=== PATIENT | male | born 1940 | race Caucasian/White ===

== ENCOUNTER 2017-07-06 15:05 | Inpatient (IN) | payer OTHER, MEDICARE ==
[~2017-07-06] VITALS: Ht 162.6 cm; Wt 72.1 kg
[2017-07-14] MEDS ORDERED: HYOS0.128 PO (09:54)
[2017-07-14] MEDS ORDERED: ASPI-110 PO (09:54)
[2017-07-14] MEDS ORDERED: MULT-65 PO (09:54)
[2017-07-14] MEDS ORDERED: METF1000 PO (09:54)
[2017-07-14] MEDS ORDERED: TRAM50TA PO (09:54)
[2017-07-14] MEDS ORDERED: LEVO50TA4 PO (09:54)
[2017-07-14] MEDS ORDERED: CHOL5000 PO (09:54)
[2017-07-16] VITALS (7 sets, daily range): BP systolic 141–153; BP diastolic 71–79; PULSE 86–107; RESP 16; TEMP 98–98.2; O2SAT 98
[2017-07-16] MEDS ORDERED: PROPOFOL 200 MG/20 ML AMP IV ONE (12:00)
[2017-07-16] MEDS ORDERED: ePHEDrine/NS 25 MG/5 ML SYR IV ONE (12:00)
[2017-07-16] MEDS ORDERED: NEOSTIGMINE 3 MG/3 ML SYR IV ONE (12:00)
[2017-07-16] MEDS ORDERED: LACTATED RINGER'S 1000 ML INJ 1,000 ML IV ONE (12:00)
[2017-07-16] MEDS ORDERED: PHENYLEPH/NS 1000 MCG/10 ML SYR IV ONE (12:00)
[2017-07-16] MEDS ORDERED: ONDANSETRON HCL 4 MG/2 ML VIAL IV PUSH ONE (12:00)
--- NOTE | 2017-07-16 13:24 | PD.HP.UP ---
H&P Update Note The Pre-Admit History and Physical Examination regarding the above named patient was reviewed (including, but not limited to, vital signs, heart, lungs, co-morbid conditions), and upon re-examination it is noted that: the patient's condition has not significantly changed since the last examination. Carlos Hess MD Jul 16, 2017 13:24
[2017-07-16] MEDS ORDERED: metroNIDAZOLE 500 MG INJ 100 ML IV ONE (13:45)
[2017-07-16] MEDS ORDERED: ALVIMOPAN 12 MG CAPSULE ONE (13:45)
[2017-07-16] MEDS ORDERED: ceFAZolin INJ 1,000 MG VIAL ONE (13:45)
[2017-07-16] MEDS ORDERED: SODIUM CHLORIDE 0.9% INJ 100 ML ONE (13:46)
[2017-07-16] MEDS ORDERED: MIDAZOLAM HCL 2 MG/2 ML VIAL ONE (14:04)
[2017-07-16] MEDS ORDERED: POTASSIUM CHLOR 20 MEQ PREMIX 100 ML IV PRN (15:30)
[2017-07-16] MEDS ORDERED: ZOLPIDEM TARTRATE 5 MG TAB PO PRN (15:30)
[2017-07-16] MEDS ORDERED: NALOXONE HCL 0.4 MG/ML AMP IV PRN (15:30)
[2017-07-16] MEDS ORDERED: BENZOCAINE 6 MG/MENTHOL 10 MG LOZENGE BUCCAL PRN (15:30)
[2017-07-16] MEDS ORDERED: ONDANSETRON HCL 4 MG/2 ML VIAL IV PRN (15:30)
[2017-07-16] MEDS ORDERED: ENALAPRILAT 1.25 MG/ML VIAL IV PRN (15:30)
[2017-07-16] MEDS ORDERED: Post-op Orders (for Pharmacy) MISC XX ONE (15:30)
[2017-07-16] MEDS ORDERED: GLUCAGON 1 MG/ML VIAL OTHER PRN (15:30)
[2017-07-16] MEDS ORDERED: SODIUM CHLORIDE 0.9% FLUSH 10 ML FLUSH IV FLUSH PRN (15:30)
[2017-07-16] MEDS: PCA - TOTAL MG MORPHINE DELIVERED PER SHIFT SCH ×2 (15:30→22:00)
[2017-07-16] MEDS ORDERED: POTASSIUM CHLOR 40 MEQ PREMIX 100 ML IV PRN (15:30)
[2017-07-16] MEDS ORDERED: DEXTROSE 50% IN WATER 50 ML VIAL(D50) IV PUSH PRN (15:30)
[2017-07-16] MEDS: INSULIN NovoLIN REGULAR SUPPLEMENTAL SCALE SQ SCH ×2 (15:50→20:55)
[2017-07-16] MEDS: D5-LR + KCL 20 MEQ INJ 1,000 ML IV SCH ×3 (16:00→22:06)
[2017-07-16 16:01] LABS: AUTOMATED NEUTROPHIL # 12.7 TH/MM3 (1.8-7.7); BASOPHIL # 0.1 TH/MM3 (0-0.2); BASOPHIL % 0.4 % (0.0-2.0); EOSINOPHIL # 0.1 TH/MM3 (0-0.4); EOSINOPHIL % 0.6 % (0.0-4.0); HEMATOCRIT 39.5 % (39.0-51.0); HEMO FLAGS DIFF FINAL; LYMPH % 21.6 % (9.0-44.0); LYMPHOCYTE # 3.7 TH/MM3 (1.0-4.8); MEAN CELL VOLUME 83.1 FL (80.0-100.0); MEAN CORPUSCULAR HEMOGLOBIN 26.1 PG (27.0-34.0); MEAN CORPUSCULAR HGB CONC 31.4 % (32.0-36.0); MONO % 3.8 % (0.0-8.0); NEUT % 73.6 % (16.0-70.0); PLATELET COUNT 245 TH/MM3 (150-450); RED BLOOD COUNT 4.75 MIL/MM3 (4.50-5.90); RED CELL DISTRIBUTION WIDTH 15.1 % (11.6-17.2); WHITE BLOOD COUNT 17.3 TH/MM3 (4.0-11.0)
[2017-07-16] MEDS ORDERED: *morphine SULFATE 8 MG/ML PERIprocedure ONLY ONE ×3 (16:02→16:27)
[2017-07-16 16:10] LABS: BICARBONATE 20.3 MEQ/L (21.0-32.0); POTASSIUM 4.2 MEQ/L (3.5-5.1)
[2017-07-16] MEDS ORDERED: DO NOT ADM ANY ANTICOAGULANT DRUGS PRN (16:15)
[2017-07-16] MEDS ORDERED: *HYDROmorphone PF 1 MG VIAL PERIprocedural Use ONLY ONE (16:40)
[2017-07-16] MEDS: MORPHINE SULFATE 30 MG/30 ML PCA IV SCH (17:58)
[2017-07-16] MEDS: METOCLOPRAMIDE HCL 10 MG/2 ML VIAL IVS SCH ×2 (18:00→23:01)
[2017-07-16] MEDS: ceFAZolin 2 GM PREMIX 50 ML IV SCH (20:20)
[2017-07-16] MEDS: FUROSEMIDE 20 MG/2 ML VIAL IV SCH (20:20)
[2017-07-16] MEDS: SODIUM CHLORIDE 0.9% FLUSH 10 ML FLUSH IV FLUSH SCH (20:21)
[2017-07-16] MEDS: KETOROLAC TROMETHAMINE 30 MG/ML (IVP) VIAL IVP PRN (20:48)
[2017-07-16] MEDS: metroNIDAZOLE 500 MG INJ 100 ML IV SCH (22:56)
[2017-07-17] VITALS (21 sets, daily range): BP systolic 130–166; BP diastolic 69–75; PULSE 73–96; RESP 16–20; TEMP 97.8–99.2; O2SAT 93–99
[2017-07-17] MEDS: D5-LR + KCL 20 MEQ INJ 1,000 ML IV SCH ×4 (03:10→19:03)
[2017-07-17] MEDS: ceFAZolin 2 GM PREMIX 50 ML IV SCH ×2 (04:12→12:08)
[2017-07-17] MEDS: KETOROLAC TROMETHAMINE 30 MG/ML (IVP) VIAL IVP PRN ×2 (05:45→13:13)
[2017-07-17] MEDS: METOCLOPRAMIDE HCL 10 MG/2 ML VIAL IVS SCH ×3 (05:45→17:25)
[2017-07-17] MEDS: PCA - TOTAL MG MORPHINE DELIVERED PER SHIFT SCH ×3 (05:45→21:24)
[2017-07-17] MEDS: metroNIDAZOLE 500 MG INJ 100 ML IV SCH ×2 (05:45→13:13)
[2017-07-17] MEDS: LEVOTHYROXINE SODIUM 50 MCG TAB PO SCH (05:45)
[2017-07-17] MEDS: INSULIN NovoLIN REGULAR SUPPLEMENTAL SCALE SQ SCH ×4 (05:59→20:26)
[2017-07-17 06:50] LABS: AUTOMATED NEUTROPHIL # 10.1 TH/MM3 (1.8-7.7); BASOPHIL % 0.2 % (0.0-2.0); HEMO FLAGS DIFF FINAL; LYMPH % 6.9 % (9.0-44.0); LYMPHOCYTE # 0.8 TH/MM3 (1.0-4.8); MEAN CELL VOLUME 82.5 FL (80.0-100.0); MEAN CORPUSCULAR HEMOGLOBIN 26.5 PG (27.0-34.0); MEAN CORPUSCULAR HGB CONC 32.1 % (32.0-36.0); MONO % 6.5 % (0.0-8.0); NEUT % 86.4 % (16.0-70.0); PLATELET COUNT 234 TH/MM3 (150-450); RED BLOOD COUNT 4.12 MIL/MM3 (4.50-5.90); RED CELL DISTRIBUTION WIDTH 15.4 % (11.6-17.2); WHITE BLOOD COUNT 11.7 TH/MM3 (4.0-11.0)
[2017-07-17 07:18] LABS: BICARBONATE 21.5 MEQ/L (21.0-32.0); POTASSIUM 4.5 MEQ/L (3.5-5.1)
[2017-07-17] MEDS: ALVIMOPAN 12 MG CAPSULE PO SCH ×2 (08:11→20:23)
[2017-07-17] MEDS: FUROSEMIDE 20 MG/2 ML VIAL IV SCH ×2 (08:11→20:26)
[2017-07-17] MEDS: PANTOPRAZOLE SODIUM 40 MG VIAL IVP SCH (08:12)
[2017-07-17] MEDS: SODIUM CHLORIDE 0.9% FLUSH 10 ML FLUSH IV FLUSH SCH ×2 (08:13→20:23)
--- NOTE | 2017-07-17 16:17 | HHI.PR ---
Subjective Remarks Sitting in chair. No N or V. No BMs Objective Vital Signs Date Time Temp Pulse Resp B/P (MAP) Pulse Ox O2 Delivery O2 Flow Rate FiO2 07/17/17 16:00 Room Air 07/17/17 16:00 97.9 75 16 132/69 (90) 98 07/17/17 16:00 73 07/17/17 13:44 16 07/17/17 13:13 20 07/17/17 12:00 Room Air 07/17/17 12:00 75 07/17/17 12:00 98.9 79 16 130/71 (90) 98 07/17/17 11:00 80 07/17/17 10:00 86 07/17/17 09:00 78 07/17/17 08:00 73 07/17/17 08:00 Room Air 07/17/17 08:00 99.2 92 16 138/70 (92) 99 07/17/17 07:00 78 07/17/17 06:00 79 07/17/17 06:00 16 07/17/17 05:45 16 07/17/17 05:00 83 07/17/17 04:00 87 07/17/17 03:00 98.3 96 16 142/71 (94) 98 07/17/17 03:00 85 07/17/17 03:00 98 Nasal Cannula 2.00 07/17/17 02:00 87 07/17/17 01:00 83 07/17/17 00:00 88 07/16/17 23:00 98.2 107 16 141/71 (94) 98 07/16/17 23:00 106 07/16/17 23:00 98 Nasal Cannula 2.00 07/16/17 22:00 16 07/16/17 22:00 16 07/16/17 22:00 90 07/16/17 21:20 98 Nasal Cannula 2.00 07/16/17 21:00 104 07/16/17 20:00 88 07/16/17 19:45 98.0 86 16 153/79 (103) 98 07/16/17 19:45 98 Nasal Cannula 2.00 07/16/17 19:00 93 07/16/17 18:00 82 12 161/72 (101) 98 Nasal Cannula 2 07/16/17 17:58 18 07/16/17 17:15 97.4 75 12 150/70 (96) 98 Nasal Cannula 2 07/16/17 17:00 69 12 156/71 (99) 98 Nasal Cannula 2 07/16/17 16:45 67 14 152/70 (97) 98 Nasal Cannula 2 07/16/17 16:30 65 20 170/81 (110) 98 Nasal Cannula 2 07/16/17 16:15 70 22 168/79 (108) 99 Nasal Cannula 3 I/O 07/16/17 07/16/17 07/16/17 07/17/17 07/17/17 07/17/17 07:00 15:00 23:00 07:00 15:00 23:00 Intake Total 1745 ml 30 ml 1200 ml Output Total 1000 ml 425 ml 1300 ml Balance -1000 ml 1320 ml -1270 ml 1200 ml Intake Oral 30 ml IV Total 245 ml 1200 ml Other 1500 ml Output Urine Total 325 ml 1300 ml Estimated Blood Loss 100 ml Other 1000 ml # Bowel Movements 0 Result Diagram: 07/17/17 0545 07/17/17 0545 Objective Remarks VS=S Abd: soft,dressing dry I&Os-OK- IV just restarted Labs-OK Assessment and Plan Assessment and Plan Stable POD#1 Transfer, Restart IVF,D/C balbuena and [employer]OLLER and dressing in AM Carlos Hess MD Jul 17, 2017 16:17
[2017-07-18] VITALS (7 sets, daily range): BP systolic 114–163; BP diastolic 55–97; PULSE 84–148; RESP 18–20; TEMP 98.5–99.1; O2SAT 90–97
[2017-07-18] MEDS: MORPHINE SULFATE 30 MG/30 ML PCA IV SCH (00:24)
[2017-07-18] MEDS: METOCLOPRAMIDE HCL 10 MG/2 ML VIAL IVS SCH ×4 (00:24→17:10)
[2017-07-18 05:26] LABS: BICARBONATE 30.7 MEQ/L (21.0-32.0); POTASSIUM 4.2 MEQ/L (3.5-5.1)
[2017-07-18] MEDS: LEVOTHYROXINE SODIUM 50 MCG TAB PO SCH (05:50)
[2017-07-18 05:57] LABS: AUTOMATED NEUTROPHIL # 8.6 TH/MM3 (1.8-7.7); BASOPHIL % 0.3 % (0.0-2.0); EOSINOPHIL # 0.1 TH/MM3 (0-0.4); EOSINOPHIL % 0.7 % (0.0-4.0); HEMATOCRIT 31.8 % (39.0-51.0); HEMO FLAGS DIFF FINAL; LYMPH % 16.8 % (9.0-44.0); LYMPHOCYTE # 1.9 TH/MM3 (1.0-4.8); MEAN CELL VOLUME 83.2 FL (80.0-100.0); MEAN CORPUSCULAR HEMOGLOBIN 27.1 PG (27.0-34.0); MEAN CORPUSCULAR HGB CONC 32.6 % (32.0-36.0); NEUT % 75.2 % (16.0-70.0); PLATELET COUNT 193 TH/MM3 (150-450); RED BLOOD COUNT 3.83 MIL/MM3 (4.50-5.90); RED CELL DISTRIBUTION WIDTH 15.2 % (11.6-17.2); WHITE BLOOD COUNT 11.5 TH/MM3 (4.0-11.0)
[2017-07-18] MEDS: PCA - TOTAL MG MORPHINE DELIVERED PER SHIFT SCH (06:00)
[2017-07-18] MEDS: INSULIN NovoLIN REGULAR SUPPLEMENTAL SCALE SQ SCH ×4 (07:00→20:33)
[2017-07-18] MEDS: ALVIMOPAN 12 MG CAPSULE PO SCH ×2 (08:40→20:29)
[2017-07-18] MEDS: FUROSEMIDE 20 MG/2 ML VIAL IV SCH ×2 (08:41→20:30)
[2017-07-18] MEDS: PANTOPRAZOLE SODIUM 40 MG VIAL IVP SCH (08:41)
[2017-07-18] MEDS: SODIUM CHLORIDE 0.9% FLUSH 10 ML FLUSH IV FLUSH SCH ×2 (08:41→20:30)
[2017-07-18] MEDS: D5-LR + KCL 20 MEQ INJ 1,000 ML IV SCH ×2 (08:42→16:19)
[2017-07-18] MEDS: ACETAMINOPHEN/HYDROcodone 325 MG/5 MG TAB PO PRN ×3 (11:37→20:29)
--- NOTE | 2017-07-18 16:19 | RADRPT ---
EXAM DATE/TIME: 07/18/2017 15:57 [facility] COMPARISON: No previous studies available for comparison. INDICATIONS : Abdominal pain and suspected ileus post colon cancer removal. MEDICAL HISTORY : Carcinoma, colon. Carcinoma, bladder. SURGICAL HISTORY : Carcinoma removal, colon. Carcinoma removal, bladder. ENCOUNTER: Initial ACUITY: 3 days PAIN SCORE: 8/10 LOCATION: Bilateral abdomen. FINDINGS: Supine and upright views of the abdomen were performed there is prominent air seen within both large and small nondilated bowel. No air-fluid levels. Findings consistent with ileus. No evidence of free air. Soft tissues are grossly unremarkable. Left basilar atelectasis versus airspace consolidation is present.. CONCLUSION: Findings suggestive of ileus. No evidence of free air. Katie Barnes MD on July 18, 2017 at 16:16 Board Certified Radiologist. This report was verified electronically.
[2017-07-18] MEDS ORDERED: METOPROLOL TARTRATE 5 MG/5 ML VIAL IV PUSH ONE ×2 (22:15→23:30)
[2017-07-18] MEDS ORDERED: METOPROLOL TARTRATE 5 MG/5 ML VIAL IV PUSH PRN ×2 (22:45→23:15)
--- NOTE | 2017-07-18 22:47 | MP ---
cc: HALI HESS,JOSE CLEMONS MD DATE OF SURGERY 07/16/2017 PREOPERATIVE DIAGNOSIS Carcinoma hepatic flexure POSTOPERATIVE DIAGNOSIS Same PROCEDURE Ascending colectomy. ANESTHESIA General endotracheal SURGEON Dr. Hess ESTIMATED BLOOD LOSS 25 mL. OPERATING TIME One hour. OPERATIVE FINDINGS This patient was found on colonoscopy to have a carcinoma of the colon around the hepatic flexure region. On exploration of the abdominal cavity, the palpation of the liver was palpably normal. The gallbladder was stuck loosely to the omentum and the hepatic flexure and this was freed. The cecum was quite high and being tethered up by the omentum and the lesion did appear just proximal to the hepatic flexure. Once the cecum and ascending colon was mobilized, however, it appeared as if this may be a distal ascending colon carcinoma. Nevertheless, there was no metastatic disease palpable anywhere in the bowel. The remainder of the colon was palpably normal as was the omentum, the small bowel and the liver as mentioned above. A full right colectomy was done with an ileotransverse colon anastomosis. OPERATIVE TECHNIQUE The patient was placed on the table in the supine position. After adequate general endotracheal anesthesia, the abdomen was prepped and draped in usual manner. A right transverse supraumbilical skin incision was made and carried down through the subcutaneous tissues and the rectus muscles and the peritoneal cavity was entered with the above-mentioned findings. The cecum and the ascending colon were mobilized along its peritoneal reflection as was the hepatic flexure. The lesser sac was entered and the transverse colon was mobilized away from the omentum. The right portion of the omentum that was near the lesion was removed en bloc with the specimen. Attention was turned to the mid portion of the transverse colon and it was cleared and then the marginal vessels were clamped, cut and ligated with 0 Vicryl ligature and the middle of the transverse colon was divided with an Ethicon CORA 55 stapling device. Next, our attention was turned to the ileocolic vessels and the terminal ileum. The terminal ileum was cleared and divided between Eli clamps. The ileocolic vessels were doubly clamped, cut and doubly ligated with 0 Vicryl ligatures at their origin and the right branch of the middle colic vessel was clamped, cut and doubly ligated with 0 Vicryl ligatures as well. The specimen was removed from the table and the anastomosis was carried out along the antimesenteric borders of the bowel using an Ethicon CORA 55 stapling device. Once the anastomosis was created, the colotomy was closed with a TX 60 blue staple height stapler and the mesentery was approximated with running 3-0 Vicryl suture in a simple running manner. The abdomen was inspected for hemostasis and hemostasis was maintained throughout with electrocautery and ligature. The abdominal cavity was irrigated thoroughly with saline solution, aspirated dry and the bowels were replaced in the abdominal cavity in an long haul truck driver manner and the omentum was placed over the bowel. The posterior rectus sheath and the linea alba was closed with a double-stranded #1 PDS in a simple running manner and then the muscle layer was irrigated thoroughly with saline solution, aspirated dry and the anterior rectus sheath and external obliques were closed with double-stranded #1 PDS as well. Subcutaneous tissue was irrigated thoroughly with saline solution, aspirated dry and the skin was closed with running 3-0 Vicryl subcuticular suture and a dressing was applied. Sponge, needle and instrument counts were reported as correct. Estimated blood loss was 25 mL. Operating time was 1 hour. The patient tolerated the procedure well and left the operating room in good condition. MD ALE Jackson/ /3:34 PM /10:33 PM
[2017-07-18 23:29] LABS: CKMB 1.4 NG/ML (0.5-3.6)
[2017-07-18] MEDS: KETOROLAC TROMETHAMINE 30 MG/ML (IVP) VIAL IVP PRN (23:35)
[2017-07-19] VITALS (26 sets, daily range): BP systolic 96–122; BP diastolic 50–89; PULSE 63–155; RESP 16–20; TEMP 97.4–98.8; O2SAT 93–98
[2017-07-19] MEDS: D5-LR + KCL 20 MEQ INJ 1,000 ML IV SCH ×3 (00:55→19:04)
[2017-07-19] MEDS: METOCLOPRAMIDE HCL 10 MG/2 ML VIAL IVS SCH ×4 (00:56→17:14)
[2017-07-19] MEDS ORDERED: DILTIAZEM HCL 25 MG/5 ML VIAL IV ONE (01:00)
[2017-07-19] MEDS: DILTIAZEM 125 MG/NS 100 ML IV PRN ×4 (01:49→18:04)
--- NOTE | 2017-07-19 02:51 | PD.CONS ---
HPI Service [facility] Hospitalists . Consult Requested By Dr. Quintana . Reason for Consult Atrial fibrillation with RVR . Primary Care Physician .Chuy Foley M.D. Diagnoses: (1) Atrial fibrillation with rapid ventricular response (2) Colon cancer History of Present Illness Mr. Robbins is a pleasant 76-year-old male with a past medical history of diabetes mellitus, hyperlipidemia, hypothyroidism, and recent diagnosis with bladder cancer and colon cancer who presented to the hospital on 07/16/2017 for elective ascending colectomy by Dr. Hess who developed atrial fibrillation with rapid ventricular response this evening and was transferred to CICU with stat consult for hospitalist care. The patient is seen in the hospital room. He reports he only pain he is currently having is related to postoperative abdominal pain. He states that the only symptom he had related to his heart rate was diaphoresis and a cold and clammy sensation. These symptoms have currently resolved with IV Cardizem. He is passing gas but has not had a bowel movement yet. He denies chest pain , shortness of breath, palpitations, dizziness, syncope, nausea or vomiting, weakness, headaches, or fevers. He does report a nonproductive cough that's been present postoperatively. He denies any prior history of atrial fibrillation. Thus far, he has not require chemotherapy or radiation treatments for bladder or colon cancer and he indicates that his colorectal surgeons feel that they got all of the cancer excised with the ascending colectomy 07/16 and he will not need any. Pathology is still pending. The patient denies history of irregular heart rhythms such as atrial fibrillation or PVCs, heart disease such as CAD or CHF, valvular heart disease, and lung disease such as emphysema or asthma. Review of Systems Except as stated in HPI: all other systems reviewed are Neg Past Family Social History Allergies: Coded Allergies: No Known Allergies (Unverified , 07/14/17) Past Medical History Diabetes mellitus, type II- patient states metformin was increased by his primary care physician about 3 months ago Hyperlipidemia Hypothyroidism AAA measuring 2-3 cm, currently under surveillance by Dr. Foley Bladder cancer status post cystoscopy with cancer excision/scraping - 4 weeks ago Colon cancer status post ascending colectomy 07/16/[address] Hess Gastroesophageal reflux disease - occasionally takes [id number] medication for Denies history of irregular heart rhythms, heart disease such as CAD or CHF, valvular heart disease, lung disease such as emphysema or asthma, hypertension, liver problems, kidney problems, DVT, PE, CVA, or seizures. . Past Surgical History Cystoscopy with bladder scraping 4 weeks ago by one of the [place] urologist though patient cannot recall his name at this time Ascending colectomy by Dr. Jimena ruiz 07/16/2017 Tonsillectomy Lasix Cataract removal Left knee arthroscopy Rectal fissure repair . Reported Medications Reported Meds & Active Scripts Active Reported Multi-Vitamin Daily (Multiple Vitamin) 1 Tab Tab 1 Tab PO DAILY Vitamin D3 (Cholecalciferol) 5,000 Unit Cap 5,000 Units PO DAILY Aspirin 81 (Aspirin) 81 Mg Tabdr 81 Mg PO DAILY Tramadol (Tramadol HCl) 50 Mg Tab 50 Mg PO Q4H PRN Hyoscyamine (Hyoscyamine Sulfate) 0.125 Mg Tab 0.125 Mg PO Q6H PRN Metformin (Metformin HCl) 1,000 Mg Tab 1,000 Mg PO DAILY With a meal Levothyroxine (Levothyroxine Sodium) 50 Mcg Tab 50 Mcg PO DAILY . Active Ordered Medications Current Medications Alvimopan (Entereg) 12 mg STK-MED ONCE .ROUTE Last administered on 07/16/17 13 :52; Start 07/16/17 at 13:45; Stop 07/16/17 at 13:46; Status DC Cefazolin Sodium (Ancef Inj) 1,000 mg STK-MED ONCE .ROUTE Last administered on 07/16/17 13:50; Start 07/16/17 at 13:45; Stop 07/16/17 at 13:46; Status DC Metronidazole 100 ml @ As Directed STK-MED ONCE IV Last administered on 14:10; Start 07/16/17 at 13:45; Stop 07/16/17 at 13:46; Status DC Sodium Chloride 100 ml @ As Directed STK-MED ONCE .ROUTE ; Start 07/16/17 at 13 :46; Stop 07/16/17 at 13:47; Status DC Midazolam HCl (Versed Inj) 2 mg STK-MED ONCE .ROUTE ; Start 07/16/17 at 14:04; Stop 07/16/17 at 14:05; Status DC Fentanyl Citrate (fentaNYL INJ) 100 mcg STK-MED ONCE .ROUTE ; Start 07/16/17 at 14:04; Stop 07/16/17 at 14:05; Status DC Fentanyl Citrate (fentaNYL INJ) 400 mcg STK-MED ONCE .ROUTE ; Start 07/16/17 at 14:04; Stop 07/16/17 at 14:05; Status DC Potassium Cl/ Dextrose/Lact Ringer's 1,000 ml @ 125 mls/hr Q8H IV Last administered on 07/19/17 00:55; Start 07/16/17 at 16:00 Sodium Chloride (NS Flush) 2 ml UNSCH PRN IV FLUSH FLUSH AFTER USING IV ACCESS ; Start 07/16/17 at 15:30 Sodium Chloride (NS Flush) 2 ml BID IV FLUSH Last administered on 07/17/17 20: 23; Start 07/16/17 at 21:00 Cefazolin Sodium/ Dextrose 50 ml @ 100 mls/hr Q8H IV Last administered on 07/17 12:08; Start 07/16/17 at 21:00; Stop 07/17/17 at 13:29; Status DC Metronidazole 100 ml @ 200 mls/hr Q8H IV Last administered on 07/17/17 13:13 ; Start 07/16/17 at 22:00; Stop 07/17/17 at 14:29; Status DC Miscellaneous Information (Post-op Orders (for Pharmacy)) STAT ONCE XX Last administered on 07/16/17 15:30; Start 07/16/17 at 15:30; Stop 07/16/17 at 17:55 ; Status DC Acetaminophen/ Hydrocodone Bitart ([place] 5-325 Mg) 1 tab Q4H PRN PO PAIN SCALE 1 TO 4; Start 07/16/17 at 15:30 Acetaminophen/ Hydrocodone Bitart ([place] 5-325 Mg) 2 tab Q4H PRN PO PAIN SCALE 5 TO 10 Last administered on 07/18/17 20:29; Start 07/16/17 at 15:30 Ketorolac Tromethamine (Toradol Inj) 15 mg Q6H PRN IVP BREAKTHROUGH PAIN Last administered on 07/18/17 23:35; Start 07/16/17 at 15:30; Stop 07/19/17 at 15:29 Alvimopan (Entereg) 12 mg BID PO Last administered on 07/18/17 20:29; Start at 09:00; Stop 07/23/17 at 21:01 Pantoprazole Sodium (Protonix Inj) 40 mg DAILY IVP Last administered on 08:41; Start 07/17/17 at 09:00 Metoclopramide HCl (Reglan Inj) 10 mg Q6HR IVS Last administered on 07/19/17 00:56; Start 07/16/17 at 18:00 Ondansetron HCl (Zofran Inj) 4 mg Q6H PRN IV NAUSEA; Start 07/16/17 at 15:30 Enalaprilat (Vasotec Inj) 1.25 mg Q4H PRN IV SYS BP GREATER THAN 160 MMHG Last administered on 07/17/17 21:42; Start 07/16/17 at 15:30 Zolpidem Tartrate (Ambien) 5 mg HS PRN PO INSOMNIA; Start 07/16/17 at 15:30 Benzocaine/Menthol (Chloraseptic Calin) 1 lozenge UNSCH PRN BUCCAL SORE THROAT; Start 07/16/17 at 15:30 Furosemide (Lasix Inj) 20 mg Q12HR IV Last administered on 07/18/17 20:30; Start 07/16/17 at 21:00; Stop 07/19/17 at 09:01 Potassium Chloride 100 ml @ 50 mls/hr UNSCH PRN IV POTASSIUM 3 TO 3.5; Start 07/16/17 at 15:30 Potassium Chloride 100 ml @ 25 mls/hr UNSCH PRN IV POTASSIUM LESS THAN 3; Start 07/16/17 at 15:30 Naloxone HCl (Narcan Inj) 0.4 mg UNSCH PRN IV RESPIRATORY RATE LESS THAN 10; Start 07/16/17 at 15:30 Morphine Sulfate (Morphine 1 Mg/ ml [employer]CH[employer]) 30 mg UNSCH IV Last administered on 00:24; Start 07/16/17 at 15:30; Stop 07/18/17 at 08:00; Status DC [employer] Dosage Infused (Pha) 1 Q8HR .XX Last administered on 07/18/17 06:00; Start 07/16/17 at 15:30; Stop 07/18/17 at 08:00; Status DC Insulin Human Regular (NovoLIN R SUPPLEMENTAL SCALE) 1 ACHS SQ Last administered on 07/18/17 11:00; Start 07/16/17 at 16:00 Dextrose (D50w (Vial) Inj) 50 ml UNSCH PRN IV PUSH HYPOGLYCEMIA-SEE COMMENTS; Start 07/16/17 at 15:30 Glucagon (Glucagon Inj) 1 mg UNSCH PRN OTHER HYPOGLYCEMIA-SEE COMMENTS; Start 07/16/17 at 15:30 Levothyroxine Sodium (Synthroid) 50 mcg DAILY@0600 PO Last administered on 07/18 05:50; Start 07/17/17 at 06:00 Morphine Sulfate (*morphine INJ PERIprocedure ONLY) 8 mg STK-MED ONCE .ROUTE Last administered on 07/16/17 16:04; Start 07/16/17 at 16:02; Stop 07/16/17 at 16:03; Status DC Miscellaneous Information ALL NURSING DEPARTME... UNSCH PRN .XX SEE LABEL COMMENTS; Start 07/16/17 at 16:15; Stop 07/17/17 at 16:14; Status DC Morphine Sulfate (*morphine INJ PERIprocedure ONLY) 8 mg STK-MED ONCE .ROUTE Last administered on 07/16/17 16:21; Start 07/16/17 at 16:20; Stop 07/16/17 at 16:21; Status DC Morphine Sulfate (*morphine INJ PERIprocedure ONLY) 8 mg STK-MED ONCE .ROUTE Last administered on 07/16/17 16:26; Start 07/16/17 at 16:27; Stop 07/16/17 at 16:28; Status DC Hydromorphone HCl (*DILAUDID PF INJ PERIprocedural ONLY) 1 mg STK-MED ONCE .ROUTE Last administered on 07/16/17 16:39; Start 07/16/17 at 16:40; Stop at 16:41; Status DC Metoprolol Tartrate (Lopressor Inj) 5 mg NOW ONCE IV PUSH ; Start 07/18/17 at 22:15; Stop 07/18/17 at 22:16; Status Cancel Metoprolol Tartrate (Lopressor Inj) 5 mg UNSCH X1 PRN IV PUSH IF HR > 130 BPM IN 30 MINS Last administered on 07/18/17 23:22; Start 07/18/17 at 22:45; Stop 07/18/17 at 23:06; Status DC Metoprolol Tartrate (Lopressor Inj) 5 mg UNSCH X1 PRN IV PUSH SEE LABEL COMMENTS Last administered on 07/18/17 23:49; Start 07/18/17 at 23:15; Stop at 07:00 Diltiazem HCl 125 mg/Sodium Chloride 125 ml @ 5 mls/hr TITRATE PRN IV Tachycardia Last administered on 07/19/17 01:49; Start 07/18/17 at 23:15 Metoprolol Tartrate (Lopressor Inj) 5 mg NOW ONCE IV PUSH ; Start 07/18/17 at 23:30; Stop 07/18/17 at 23:31; Status DC Diltiazem HCl (Cardizem Inj) 10 mg NOW ONCE IV Last administered on 07/19/17 01:47; Start 07/19/17 at 01:00; Stop 07/19/17 at 01:01; Status DC . Family History Mother with throat cancer Father with gastric and lung cancer Brother with lung and gastric cancer . Social History Tobacco: Smoked 40-50 years at half a pack per day and quit 12 years ago Alcohol: Drinks an occasional glass of wine with dinner Illicit drugs: Denies . Physical Exam Vital Signs Vital Signs Date Time Temp Pulse Resp B/P (MAP) Pulse Ox O2 Delivery O2 Flow Rate FiO2 07/19/17 01:50 133 07/19/17 01:50 98.8 131 18 113/89 (97) 95 07/19/17 01:49 136 113/89 07/19/17 00:00 97.4 117 20 106/63 (77) 98 07/18/17 21:31 144 141/97 (112) 07/18/17 20:00 99.1 147 20 138/80 (99) 97 07/18/17 16:00 98.7 148 20 114/55 (74) 96 07/18/17 12:00 98.5 107 18 132/57 (82) 96 07/18/17 08:00 99.0 102 20 163/74 (103) 90 07/18/17 06:00 18 07/18/17 04:00 98.9 92 18 156/73 (100) 92 Physical Exam GENERAL: This is a pleasant well-nourished, well-developed patient, in no apparent distress. SKIN: No rashes, ecchymoses or lesions. Cool and dry. HEAD: Atraumatic. Normocephalic. EYES: No scleral icterus. No injection or drainage. ENT: Nose without bleeding, purulent drainage. NECK: Trachea midline. No JVD. No carotid bruits auscultated. CARDIOVASCULAR: Irregularly irregular without murmurs, gallops, or rubs. + 1 PP. RESPIRATORY: Breath sounds diminished at bases but equal bilaterally. No wheezes , rales, or rhonchi. GASTROINTESTINAL: Abdomen soft, tender, slightly distended with abdominal binder in place. No guarding. MUSCULOSKELETAL: Extremities without clubbing, cyanosis, or edema. NEUROLOGICAL: Awake and alert. Motor and sensory grossly within normal limits. Normal speech. . Laboratory Laboratory Tests Test 07/18/17 03:51 07/18/17 22:35 White Blood Count 11.5 Red Blood Count 3.83 Hemoglobin 10.4 Hematocrit 31.8 Mean Corpuscular Volume 83.2 Mean Corpuscular Hemoglobin 27.1 Mean Corpuscular Hemoglobin Concent 32.6 Red Cell Distribution Width 15.2 Platelet Count 193 Mean Platelet Volume 8.5 Neutrophils (%) (Auto) 75.2 Lymphocytes (%) (Auto) 16.8 Monocytes (%) (Auto) 7.0 Eosinophils (%) (Auto) 0.7 Basophils (%) (Auto) 0.3 Neutrophils # (Auto) 8.6 Lymphocytes # (Auto) 1.9 Monocytes # (Auto) 0.8 Eosinophils # (Auto) 0.1 Basophils # (Auto) 0.0 CBC Comment DIFF FINAL Differential Comment Blood Urea Nitrogen 11 Creatinine 0.98 Random Glucose 128 Calcium Level 8.4 Sodium Level 140 Potassium Level 4.2 Chloride Level 102 Carbon Dioxide Level 30.7 Anion Gap 7 Estimat Glomerular Filtration Rate 75 Total Creatine Kinase 773 Creatine Kinase MB 1.4 Creatine Kinase MB % 0.2 Troponin I 0.02 Result Diagram: 07/18/17 0351 07/18/17 0351 Imaging Last Impressions Abdomen X-Ray 07/18/17 0000 Signed Impressions: Service Date/Time: Tuesday, July 18, 2017 15:57 - CONCLUSION: Findings suggestive of ileus. No evidence of free air. Katie Barnes MD . Assessment and Plan Problem List: (1) Atrial fibrillation with rapid ventricular response ICD Code: I48.91 - Unspecified atrial fibrillation (2) Colon cancer ICD Code: C18.9 - Malignant neoplasm of colon, unspecified Assessment and Plan Mr. Robbins is a 76-year-old male recently diagnosed with bladder and colon cancer who presented 07/16/2017 for an elective ascending colectomy by Dr. Hess who was transferred to CICU after developing atrial fibrillation with rapid ventricular response. Atrial fibrillation with rapid ventricular response - suspect this is post-op A. fib - Continue Cardizem drip - rate improved into 90's at time of my visit - Check serial EKGs and cardiac enzymes to rule out ACS - Check TSH to ensure effective thyroid regulation - Check chest x-ray to rule out acute cardiopulmonary process - Check electrolytes and CBC - Echocardiogram to evaluate cardiac function and structure - Cardiology consultation - assistance appreciated Colon CA s/p ascending colectomy - POD #3 - Management per Dr. Hess T2DM - On medium SS regular insulin at [facility] - monitor trends in blood glucose and adjust treatment if needed - home metformin is on hold - hypoglycemia protocol is in place DVT prophylaxis - SCDs/TEDs . Discussed Condition With Patient and RN . Problem Qualifiers (1) Colon cancer: Qualified Codes: C18.3 - Malignant neoplasm of hepatic flexure Kiara Joseph Jul 19, 2017 02:51
[2017-07-19] MEDS: ACETAMINOPHEN/HYDROcodone 325 MG/5 MG TAB PO PRN ×3 (03:09→18:05)
--- NOTE | 2017-07-19 05:50 | RADRPT ---
EXAM DATE/TIME: 07/19/2017 04:37 [facility] COMPARISON: No previous studies available for comparison. INDICATIONS : Cough. MEDICAL HISTORY : Carcinoma, colon. Carcinoma, bladder. SURGICAL HISTORY : Abdominal surgery. ENCOUNTER: Initial ACUITY: 3 days PAIN SCORE: 0/10 LOCATION: Bilateral chest FINDINGS: A single view of the chest demonstrates an elongated density overlying the left lower lobe. The right lung is clear. The cardiomediastinal contours are unremarkable. Osseous structures are intact. CONCLUSION: Stably elongated density in the left lower lobe atelectasis versus infiltrate. Norman Almodovar MD on July 19, 2017 at 5:48 Board Certified Radiologist. This report was verified electronically.
[2017-07-19] MEDS: LEVOTHYROXINE SODIUM 50 MCG TAB PO SCH (06:00)
[2017-07-19] MEDS: INSULIN NovoLIN REGULAR SUPPLEMENTAL SCALE SQ SCH ×4 (06:02→21:00)
[2017-07-19 06:55] LABS: AUTOMATED NEUTROPHIL # 14.4 TH/MM3 (1.8-7.7); BASOPHIL # 0.1 TH/MM3 (0-0.2); BASOPHIL % 0.4 % (0.0-2.0); EOSINOPHIL # 0.1 TH/MM3 (0-0.4); EOSINOPHIL % 0.5 % (0.0-4.0); HEMATOCRIT 37.6 % (39.0-51.0); HEMO FLAGS DIFF FINAL; LYMPHOCYTE # 2.2 TH/MM3 (1.0-4.8); MEAN CELL VOLUME 83.9 FL (80.0-100.0); MEAN CORPUSCULAR HEMOGLOBIN 27.2 PG (27.0-34.0); MEAN CORPUSCULAR HGB CONC 32.4 % (32.0-36.0); MONO % 8.3 % (0.0-8.0); NEUT % 78.8 % (16.0-70.0); PLATELET COUNT 265 TH/MM3 (150-450); RED BLOOD COUNT 4.49 MIL/MM3 (4.50-5.90); RED CELL DISTRIBUTION WIDTH 15.4 % (11.6-17.2); WHITE BLOOD COUNT 18.3 TH/MM3 (4.0-11.0)
[2017-07-19 07:41] LABS: CKMB 1.6 NG/ML (0.5-3.6)
[2017-07-19] MEDS: ALVIMOPAN 12 MG CAPSULE PO SCH ×2 (08:24→21:31)
[2017-07-19] MEDS: SODIUM CHLORIDE 0.9% FLUSH 10 ML FLUSH IV FLUSH SCH ×2 (08:24→21:00)
[2017-07-19] MEDS: FUROSEMIDE 20 MG/2 ML VIAL IV SCH (08:24)
[2017-07-19] MEDS: PANTOPRAZOLE SODIUM 40 MG VIAL IVP SCH (08:24)
--- NOTE | 2017-07-19 09:30 | HHI.PR ---
Subjective Remarks Follow up for Afib in a patient with recent ascending colectomy. Mr. Robbins is currently doing well. He is sitting in his chair. Denies any chest pain, shortness of breath, fever or chills. Objective Vitals Vital Signs Date Time Temp Pulse Resp B/P (MAP) Pulse Ox O2 Delivery O2 Flow Rate FiO2 07/19/17 08:23 75 96/50 07/19/17 08:05 82 07/19/17 07:57 80 07/19/17 07:57 98.1 75 16 96/50 (65) 95 07/19/17 06:23 108 07/19/17 05:00 74 07/19/17 04:11 99 07/19/17 04:11 98.6 88 19 112/85 (94) 94 07/19/17 03:00 133 07/19/17 02:00 99 07/19/17 01:50 133 07/19/17 01:50 98.8 131 18 113/89 (97) 95 07/19/17 01:49 136 113/89 07/19/17 00:00 97.4 117 20 106/63 (77) 98 07/18/17 21:31 144 141/97 (112) 07/18/17 20:00 99.1 147 20 138/80 (99) 97 07/18/17 16:00 98.7 148 20 114/55 (74) 96 07/18/17 12:00 98.5 107 18 132/57 (82) 96 I/O 07/18/17 07/18/17 07/18/17 07/19/17 07/19/17 07/19/17 07:00 15:00 23:00 07:00 15:00 23:00 Intake Total 1800 ml 1735 ml Output Total 1550 ml 1000 ml Balance -1550 ml 800 ml 1735 ml Intake Oral 1800 ml 120 ml IV Total 1615 ml Output Urine Total 1550 ml 1000 ml # Voids 1 # Bowel Movements 1 2 Result Diagram: 07/19/17 0556 07/18/17 0351 Imaging Last Impressions Chest X-Ray 07/19/17 0000 Signed Impressions: Service Date/Time: Wednesday, July 19, 2017 04:37 - CONCLUSION: Stably elongated density in the left lower lobe atelectasis versus infiltrate. Norman Almodovar MD Abdomen X-Ray 07/18/17 0000 Signed Impressions: Service Date/Time: Tuesday, July 18, 2017 15:57 - CONCLUSION: Findings suggestive of ileus. No evidence of free air. Katie Barnes MD Objective Remarks GENERAL: Alert, oriented 3, NAD. SKIN: Warm and dry. HEAD: Normocephalic. EYES: No scleral icterus. No injection or drainage. NECK: Supple, trachea midline. No JVD or lymphadenopathy. CARDIOVASCULAR: Irregularly irregular, rate controlled without murmurs, gallops , or rubs. RESPIRATORY: Breath sounds equal bilaterally. No accessory muscle use. GASTROINTESTINAL: Abdomen soft, non-tender, nondistended. MUSCULOSKELETAL: No cyanosis, or edema. BACK: Nontender without obvious deformity. No CVA tenderness. Procedures 07/16/2017 Ascending colectomy. A/P Problem List: (1) Atrial fibrillation with rapid ventricular response ICD Code: I48.91 - Unspecified atrial fibrillation (2) Colon cancer ICD Code: C18.9 - Malignant neoplasm of colon, unspecified Assessment and Plan Mr. Robbins is a 76-year-old male recently diagnosed with bladder and colon cancer who presented 07/16/2017 for an elective ascending colectomy by Dr. Hess who was transferred to CICU after developing atrial fibrillation with rapid ventricular response. Atrial fibrillation with rapid ventricular response - new onset, likely started post op. - Patient is currently in Afib, rate controlled. - [id number] score 3 (Age, DM, HTN). - Patient will likely benefit from Anticoagulation whenever it is appropriate from colorectal surgery's standpoint. - Troponin negative so far. - TSH level pending. - CXR shows left lower lobe atelectasis vs. infiltrates. Will continue incentive spirometry. - Cardiology consult pending. Colon CA s/p ascending colectomy - Management per Dr. Hess - Currently on Alvimopan 12mg BID. Diabetes mellitus type 2 - On medium SS regular insulin at [facility] - Blood glucose is close to 200s. Will add long acting Levemir 7 units QHS. - home metformin is on hold Full code. SCDs. Problem Qualifiers (1) Colon cancer: Qualified Codes: C18.3 - Malignant neoplasm of hepatic flexure Emmanuel Alvarado DO Jul 19, 2017 09:30
--- NOTE | 2017-07-19 09:55 | PD.CONS ---
HPI Consult Requested By Primary Care Physician Chuy Foley M.D. History of Present Illness 76-year-old male with a past medical history of diabetes mellitus, hyperlipidemia, hypothyroidism, and recent diagnosis with bladder cancer and colon cancer who presented to the hospital on 07/16/2017 for elective ascending colectomy by Dr. Hess who developed atrial fibrillation with rapid ventricular response this evening and was transferred to CICU with stat consult to Cardiology for further evaluation and management. He reports abdominal pain related to postoperative abdominal pain. He denies chest pain, shortness of breath, palpitations, dizziness, syncope, nausea or vomiting, weakness, headaches, or fevers. He denies any prior history of atrial fibrillation. Review of Systems Consitutional: DENIES: Fatigue, Fever, Chills, Weight gain, Weight loss Eyes: DENIES: Amaurosis Fugax, Change in vision HEENT: DENIES: Lightheadedness, Change in hearing Respiratory: DENIES: See HPI, Cough, Snoring, Shortness of breath, Wheezing, Sputum production Cardiovascular: DENIES: See HPI, Chest pain, Palpitations, Syncope, Tachycardia Gastrointestinal: DENIES: Nausea, Vomiting, Change in bowel habits, Reflux, Bloody stools, Melena Genitourinary: DENIES: Urinary incontinence, Difficulty voiding Integumentary: DENIES: Rash Neurologic: DENIES: Tingling or numbness, Memory problems, Poor Balance, Stroke symptoms Musculoskeletal: DENIES: Joint pain, Muscle pain, Limited range of motion, Back pain Psychiatric: DENIES: Anxiety, Depression, Sleep disturbances Hematologic: DENIES: Bruising tendencies, Bleeding tendencies Endocrine: DENIES: Weight gain, Weight loss, Thyroid disease Past Family Social History Allergies: Coded Allergies: No Known Allergies (Unverified , 07/14/17) Past Medical History Diabetes mellitus, type II Hyperlipidemia Hypothyroidism AAA measuring 2-3 cm, currently under surveillance by Dr. Foley Bladder cancer status post cystoscopy with cancer excision/scraping - 4 weeks ago Colon cancer status post ascending colectomy 07/16/[address] Hess Gastroesophageal reflux disease Past Surgical History Cystoscopy Ascending colectomy by Dr. Jimena ruiz 07/16/2017 Tonsillectomy Cataract removal Left knee arthroscopy Rectal fissure repair Reported Medications Reported Meds & Active Scripts Active Reported Multi-Vitamin Daily (Multiple Vitamin) 1 Tab Tab 1 Tab PO DAILY Vitamin D3 (Cholecalciferol) 5,000 Unit Cap 5,000 Units PO DAILY Aspirin 81 (Aspirin) 81 Mg Tabdr 81 Mg PO DAILY Tramadol (Tramadol HCl) 50 Mg Tab 50 Mg PO Q4H PRN Hyoscyamine (Hyoscyamine Sulfate) 0.125 Mg Tab 0.125 Mg PO Q6H PRN Metformin (Metformin HCl) 1,000 Mg Tab 1,000 Mg PO DAILY With a meal Levothyroxine (Levothyroxine Sodium) 50 Mcg Tab 50 Mcg PO DAILY Active Ordered Medications Current Medications Medications (Trade) Dose Ordered Sig/Daniel Route Start Time Stop Time Status Last Admin Potassium Cl/ Dextrose/Lact Ringer's 1,000 ml @ 125 mls/hr Q8H IV 07/16/17 16:00 07/19/17 08:23 (NS Flush) 2 ml UNSCH PRN IV FLUSH 07/16/17 15:30 (NS Flush) 2 ml BID IV FLUSH 07/16/17 21:00 07/19/17 08:24 ([place] 5-325 Mg) 1 tab Q4H PRN PO 07/16/17 15:30 ([place] 5-325 Mg) 2 tab Q4H PRN PO 07/16/17 15:30 07/19/17 03:09 (Toradol Inj) 15 mg Q6H PRN IVP 07/16/17 15:30 07/19/17 15:29 07/18/17 23:35 (Entereg) 12 mg BID PO 07/17/17 09:00 07/23/17 21:01 07/19/17 08:24 (Protonix Inj) 40 mg DAILY IVP 07/17/17 09:00 07/19/17 08:24 (Reglan Inj) 10 mg Q6HR IVS 07/16/17 18:00 07/19/17 06:00 (Zofran Inj) 4 mg Q6H PRN IV 07/16/17 15:30 (Vasotec Inj) 1.25 mg Q4H PRN IV 07/16/17 15:30 07/17/17 21:42 (Ambien) 5 mg HS PRN PO 07/16/17 15:30 (Chloraseptic Calin) 1 lozenge UNSCH PRN BUCCAL 07/16/17 15:30 Potassium Chloride 100 ml @ 50 mls/hr UNSCH PRN IV 07/16/17 15:30 Potassium Chloride 100 ml @ 25 mls/hr UNSCH PRN IV 07/16/17 15:30 (Narcan Inj) 0.4 mg UNSCH PRN IV 07/16/17 15:30 (NovoLIN R SUPPLEMENTAL SCALE) 1 ACHS SQ 07/16/17 16:00 07/19/17 06:02 (D50w (Vial) Inj) 50 ml UNSCH PRN IV PUSH 07/16/17 15:30 (Glucagon Inj) 1 mg UNSCH PRN OTHER 07/16/17 15:30 (Synthroid) 50 mcg DAILY@0600 PO 07/17/17 06:00 07/19/17 06:00 Diltiazem HCl 125 mg/Sodium Chloride 125 ml @ 5 mls/hr TITRATE PRN IV 07/18/17 23:15 07/19/17 01:49 (Levemir Inj) 7 units HS SQ 07/19/17 21:00 UNV Physical Exam Vital Signs Vital Signs Date Time Temp Pulse Resp B/P (MAP) Pulse Ox O2 Delivery O2 Flow Rate FiO2 07/19/17 09:19 127 108/72 07/19/17 09:11 112 07/19/17 08:23 75 96/50 07/19/17 08:05 82 07/19/17 07:57 80 07/19/17 07:57 98.1 75 16 96/50 (65) 95 07/19/17 06:23 108 07/19/17 05:00 74 07/19/17 04:11 99 07/19/17 04:11 98.6 88 19 112/85 (94) 94 07/19/17 03:00 133 07/19/17 02:00 99 07/19/17 01:50 133 07/19/17 01:50 98.8 131 18 113/89 (97) 95 07/19/17 01:49 136 113/89 07/19/17 00:00 97.4 117 20 106/63 (77) 98 07/18/17 21:31 144 141/97 (112) 07/18/17 20:00 99.1 147 20 138/80 (99) 97 07/18/17 16:00 98.7 148 20 114/55 (74) 96 07/18/17 12:00 98.5 107 18 132/57 (67) 96 Physical Exam GENERAL: Well-nourished, well-developed patient. SKIN: Warm and dry. HEAD: Normocephalic. EYES: No scleral icterus. No injection or drainage. NECK: Supple, trachea midline. No JVD or lymphadenopathy. CARDIOVASCULAR: Regular rate and rhythm without murmurs, gallops, or rubs. RESPIRATORY: Breath sounds equal bilaterally. No accessory muscle use. GASTROINTESTINAL: Abdomen soft, non-tender, nondistended. EXTREMITIES: No cyanosis, or edema. NEUROLOGICAL: Awake, alert, and oriented x 3. Non-focal. Laboratory Laboratory Tests Test 07/18/17 22:35 07/19/17 05:56 Total Creatine Kinase 773 582 Creatine Kinase MB 1.4 1.6 Creatine Kinase MB % 0.2 0.3 Troponin I 0.02 0.02 White Blood Count 18.3 Red Blood Count 4.49 Hemoglobin 12.2 Hematocrit 37.6 Mean Corpuscular Volume 83.9 Mean Corpuscular Hemoglobin 27.2 Mean Corpuscular Hemoglobin Concent 32.4 Red Cell Distribution Width 15.4 Platelet Count 265 Mean Platelet Volume 8.7 Neutrophils (%) (Auto) 78.8 Lymphocytes (%) (Auto) 12.0 Monocytes (%) (Auto) 8.3 Eosinophils (%) (Auto) 0.5 Basophils (%) (Auto) 0.4 Neutrophils # (Auto) 14.4 Lymphocytes # (Auto) 2.2 Monocytes # (Auto) 1.5 Eosinophils # (Auto) 0.1 Basophils # (Auto) 0.1 CBC Comment DIFF FINAL Differential Comment Result Diagram: 07/19/17 0556 07/18/17 0351 Imaging Last Impressions Chest X-Ray 07/19/17 0000 Signed Impressions: Service Date/Time: Wednesday, July 19, 2017 04:37 - CONCLUSION: Stably elongated density in the left lower lobe atelectasis versus infiltrate. Norman Almodovar MD Abdomen X-Ray 07/18/17 0000 Signed Impressions: Service Date/Time: Tuesday, July 18, 2017 15:57 - CONCLUSION: Findings suggestive of ileus. No evidence of free air. Katie Barnes MD Assessment and Plan Problem List: (1) Atrial fibrillation with rapid ventricular response ICD Codes: I48.91 - Unspecified atrial fibrillation Plan: Post operative Afib with RVR. Asymptomatic. hemodynamically table. Negative troponin x 2. Afib now resolved back in NSR. No CV complaints. Recommendations: - Wean Cardizem drip - Start Cardizem 30mg PO QID - Encourage incentive spirometry and early ambulation - Outpatient Cardiology f/u upon discharge Thank you for the opportunity to take par in the care of this patient Will be available on a PRN basis for any questions or concerns (2) Colon cancer ICD Codes: C18.9 - Malignant neoplasm of colon, unspecified Problem Qualifiers (1) Colon cancer: Qualified Codes: C18.3 - Malignant neoplasm of hepatic flexure Jesus Bojorquez MD Jul 19, 2017 09:55
--- NOTE | 2017-07-19 11:49 | EKG ---
Date Performed: 07/19/2017 Time Performed: 06:09:22 PTAGE: 76 years EKG: Atrial fibrillation Abnormal ECG PREVIOUS TRACING : 07/18/2017 22.09 Compared to the previous tracing atrial flutter no longer p resent DOCTOR: Terrell Real Interpretating Date/Time 07/19/2017 11:47:46
--- NOTE | 2017-07-19 11:57 | EKG ---
Date Performed: 07/18/2017 Time Performed: 22:09:11 PTAGE: 76 years EKG: ATRIAL FLUTTER/TACHYCARDIA WITH RAPID VENTRICULAR RESPONSE NONSPECIFIC ST & T-WAVE ABNORMAL ITY ABNORMAL RHYTHM ECG PREVIOUS TRACING : 07/14/2017 09.43 Compared to the previous tracing Sinus rhythm no longer present DOCTOR: Terrell Real Interpretating Date/Time 07/19/2017 11:55:38
[2017-07-19 13:21] LABS: ALT (GPT) 24 U/L (12-78); ANION GAP 13 MEQ/L (5-15); AST (GOT) 26 U/L (15-37); BICARBONATE 24.8 MEQ/L (21.0-32.0); BLOOD UREA NITROGEN 12 MG/DL (7-18); CHLORIDE 101 MEQ/L (98-107); GLOMERULAR FILTRATION RATE 55 ML/MIN (>89); POTASSIUM 3.8 MEQ/L (3.5-5.1); SODIUM (NA) 139 MEQ/L (136-145)
[2017-07-19 13:31] LABS: ALKALINE PHOSPHATASE 55 U/L (45-117); CREATINE KINASE 533 U/L (39-308); TOTAL BILIRUBIN ADULT 0.4 MG/DL (0.2-1.0)
[2017-07-19 13:43] LABS: CKMB 1.5 NG/ML (0.5-3.6)
[2017-07-19] MEDS: DILTIAZEM HCL 30 MG TAB PO SCH ×3 (14:01→21:31)
--- NOTE | 2017-07-19 15:10 | ECHRPT ---
Indication: A-FIB CONCLUSIONS Normal left ventricular size and wall thickness. The left ventricular systolic function is normal wi th an estimated ejection fraction in the range of 60-65%. Left ventricular diastolic function parameters a re normal. Mild thickening of the mitral valve leaflets. Mild mitral annular calcification. Trace mitral valve regurgitation. Aortic valve sclerosis is present. Mild aortic valve regurgitation. BP: 112 / 67 HR: 79 Rhythm: Atrial flutter MEASUREMENTS (Male / Female) Normal Values Technical Quality:Good 2D ECHO LV Diastolic Diameter PLAX 5.1 cm 4.2 - 5.9 / 3.9 - 5.3 cm LV Systolic Diameter PLAX 3.2 cm IVS Diastolic Thickness 0.9 cm 0.6 - 1.0 / 0.6 - 0.9 cm LVPW Diastolic Thickness 0.9 cm 0.6 - 1.0 / 0.6 - 0.9 cm LV Relative Wall Thickness 0.3 RV Internal Dim ED PLAX 2.2 cm LVOT Diameter 1.8 cm LA Systolic Diameter LX 4.0 cm 3.0 - 4.0 / 2.7 - 3.8 cm LV Ejection Fraction MOD 4C 66.1 % LV Cardiac Index MOD 4C 1598.4 cm/minm LV Ejection Fraction 4C AL 67.0 % LV Cardiac Index 4C AL 1675.4 cm/minm M-MODE Aortic Root Diameter MM 3.2 cm LA Systolic Diameter MM 4.0 cm LA Ao Ratio MM 1.3 AV Cusp Separation MM 1.7 cm DOPPLER AV Peak Velocity 191.0 cm/s AV Peak Gradient 14.6 mmHg AI Peak Velocity 417.5 cm/s AI Peak Gradient 69.7 mmHg AI Pressure Half Time 512.0 ms LVOT Peak Velocity 121.0 cm/s LVOT Peak Gradient 5.9 mmHg AV Area Cont Eq pk 1.6 cm MV Peak Velocity 174.0 cm/s MV Peak Gradient 12.1 mmHg MV Mean Velocity 104.0 cm/s MV Mean Gradient 5.0 mmHg MV Area PHT 2.5 cm Mitral E Point Velocity 118.0 cm/s Mitral A Point Velocity 154.0 cm/s Mitral E to A Ratio 0.8 PV Peak Velocity 129.0 cm/s PV Peak Gradient 6.7 mmHg FINDINGS LEFT VENTRICLE Normal left ventricular size and wall thickness. The left ventricular systolic function is normal wi th an estimated ejection fraction in the range of 60-65%. Left ventricular diastolic function parameters a re normal. RIGHT VENTRICLE Normal right ventricular size and systolic function. LEFT ATRIUM The left atrial size is normal. RIGHT ATRIUM The right atrial size is normal. ATRIAL SEPTUM Normal atrial septal thickness without atrial level shunting by limited color doppler interrogation. AORTA The aortic root and proximal ascending aorta are normal in size on limited imaging. MITRAL VALVE Mild thickening of the mitral valve leaflets. Mild mitral annular calcification. Trace mitral valve regurgitation. AORTIC VALVE Aortic valve sclerosis is present. Mild aortic valve regurgitation. TRICUSPID VALVE Structurally normal tricuspid valve. No tricuspid valve stenosis or regurgitation. PULMONARY VALVE The pulmonary valve is not well visualized. VESSELS The inferior vena cava is normal in size. PERICARDIUM No pericardial effusion. Jesus Bojorquez MD (Electronically Signed) Final Date:19 July 2017 15:09
[2017-07-19] MEDS: INSULIN DETEMIR 100 UNITS/ML VIAL SQ SCH (21:00)
[2017-07-19] MEDS: ENOXAPARIN SODIUM 40 MG/0.4 ML SYRINGE SQ SCH (21:32)
[2017-07-20] VITALS (30 sets, daily range): BP systolic 105–152; BP diastolic 50–80; PULSE 71–100; RESP 16–18; TEMP 98.4–99.1; O2SAT 93–97
[2017-07-20] MEDS: METOCLOPRAMIDE HCL 10 MG/2 ML VIAL IVS SCH ×5 (00:13→22:45)
[2017-07-20] MEDS: LEVOTHYROXINE SODIUM 50 MCG TAB PO SCH (05:49)
[2017-07-20] MEDS: ACETAMINOPHEN/HYDROcodone 325 MG/5 MG TAB PO PRN ×5 (05:49→23:35)
[2017-07-20] MEDS: INSULIN NovoLIN REGULAR SUPPLEMENTAL SCALE SQ SCH ×4 (06:25→20:55)
--- NOTE | 2017-07-20 08:31 | HHI.PR ---
Subjective Remarks Patient remains on Cardizem drip for A. fib We'll try to wean off the drip No current complaints Tolerating liquid diet A.m. labs Try to wean off Cardizem discussed with patient and RN Objective Vitals Vital Signs Date Time Temp Pulse Resp B/P (MAP) Pulse Ox O2 Delivery O2 Flow Rate FiO2 07/20/17 07:54 99.0 85 16 105/56 (72) 95 07/20/17 06:37 77 07/20/17 05:47 99.1 07/20/17 05:35 86 07/20/17 04:08 71 07/20/17 03:31 98.5 98 16 136/66 (89) 95 07/20/17 03:31 87 07/20/17 02:31 78 07/20/17 01:33 79 07/20/17 00:22 83 07/19/17 23:40 98.3 75 16 119/69 (86) 94 07/19/17 23:21 92 07/19/17 22:00 92 07/19/17 21:00 89 07/19/17 20:10 97 07/19/17 19:55 95 07/19/17 19:55 98.7 63 18 122/67 (85) 93 07/19/17 19:04 63 122/67 07/19/17 18:40 102 130/64 07/19/17 18:08 155 07/19/17 18:04 157 153/70 07/19/17 17:00 94 07/19/17 16:12 94 07/19/17 15:42 98.0 82 16 117/60 (79) 97 07/19/17 15:42 83 07/19/17 14:04 85 129/52 07/19/17 14:03 85 07/19/17 13:13 82 07/19/17 13:13 82 117/58 07/19/17 12:12 16 07/19/17 12:03 85 07/19/17 12:03 85 101/65 07/19/17 11:23 98.2 97 16 112/62 (79) 96 07/19/17 11:23 124 07/19/17 10:49 134 155/89 07/19/17 10:02 126 07/19/17 09:19 127 108/72 07/19/17 09:11 112 07/19/17 08:23 75 96/50 I/O 07/19/17 07/19/17 07/19/17 07/20/17 07/20/17 07/20/17 06:59 14:59 22:59 06:59 14:59 22:59 Intake Total 1735 ml 1361 ml 1498 ml Output Total 850 ml 225 ml Balance 1735 ml 511 ml 1273 ml Intake Oral 120 ml 360 ml 480 ml IV Total 1615 ml 1001 ml 1018 ml Output Urine Total 850 ml 225 ml # Voids 1 1 # Bowel Movements 2 2 1 Result Diagram: 07/19/17 0556 07/19/17 1147 Other Results Laboratory Tests Test 07/18/17 03:51 07/18/17 22:35 07/19/17 05:56 07/19/17 11:47 White Blood Count 11.5 TH/MM3 18.3 TH/MM3 Red Blood Count 3.83 MIL/MM3 4.49 MIL/MM3 Hemoglobin 10.4 GM/DL 12.2 GM/DL Hematocrit 31.8 % 37.6 % Mean Corpuscular Volume 83.2 FL 83.9 FL Mean Corpuscular Hemoglobin 27.1 PG 27.2 PG Mean Corpuscular Hemoglobin Concent 32.6 % 32.4 % Red Cell Distribution Width 15.2 % 15.4 % Platelet Count 193 TH/MM3 265 TH/MM3 Mean Platelet Volume 8.5 FL 8.7 FL Neutrophils (%) (Auto) 75.2 % 78.8 % Lymphocytes (%) (Auto) 16.8 % 12.0 % Monocytes (%) (Auto) 7.0 % 8.3 % Eosinophils (%) (Auto) 0.7 % 0.5 % Basophils (%) (Auto) 0.3 % 0.4 % Neutrophils # (Auto) 8.6 TH/MM3 14.4 TH/MM3 Lymphocytes # (Auto) 1.9 TH/MM3 2.2 TH/MM3 Monocytes # (Auto) 0.8 TH/MM3 1.5 TH/MM3 Eosinophils # (Auto) 0.1 TH/MM3 0.1 TH/MM3 Basophils # (Auto) 0.0 TH/MM3 0.1 TH/MM3 CBC Comment DIFF FINAL DIFF FINAL Differential Comment Blood Urea Nitrogen 11 MG/DL 12 MG/DL Creatinine 0.98 MG/DL 1.27 MG/DL Random Glucose 128 MG/DL 216 MG/DL Calcium Level 8.4 MG/DL 8.6 MG/DL Sodium Level 140 MEQ/L 139 MEQ/L Potassium Level 4.2 MEQ/L 3.8 MEQ/L Chloride Level 102 MEQ/L 101 MEQ/L Carbon Dioxide Level 30.7 MEQ/L 24.8 MEQ/L Anion Gap 7 MEQ/L 13 MEQ/L Estimat Glomerular Filtration Rate 75 ML/MIN 55 ML/MIN Total Creatine Kinase 773 U/L 582 U/L 533 U/L Creatine Kinase MB 1.4 NG/ML 1.6 NG/ML 1.5 NG/ML Creatine Kinase MB % 0.2 % 0.3 % 0.3 % Troponin I 0.02 NG/ML 0.02 NG/ML LESS THAN 0.02 NG/ML Total Protein 6.7 GM/DL Albumin 3.0 GM/DL Alkaline Phosphatase 55 U/L Aspartate Amino Transf (AST/SGOT) 26 U/L Alanine Aminotransferase (ALT/SGPT) 24 U/L Total Bilirubin 0.4 MG/DL Thyroid Stimulating Hormone 3rd Gen 3.040 uIU/ML Imaging Last Impressions Chest X-Ray 07/19/17 0000 Signed Impressions: Service Date/Time: Wednesday, July 19, 2017 04:37 - CONCLUSION: Stably elongated density in the left lower lobe atelectasis versus infiltrate. Norman Almodovar MD Abdomen X-Ray 07/18/17 0000 Signed Impressions: Service Date/Time: Tuesday, July 18, 2017 15:57 - CONCLUSION: Findings suggestive of ileus. No evidence of free air. Katie Barnes MD Objective Remarks GENERAL: Awake alert and oriented talkative and cooperative SKIN: Warm and dry. HEAD: Atraumatic. Normocephalic. EYES: Pupils equal and round. No scleral icterus. No injection or drainage. Extraocular muscles are grossly intact ENT: No nasal bleeding or discharge. Mucous membranes pink and moist. Tongue is midline NECK: Trachea midline. No JVD. Supple CARDIOVASCULAR: IRRegular rate and rhythm. S1-S2 no S3 or S4 RESPIRATORY: No accessory muscle use. Clear to auscultation. Breath sounds equal bilaterally. GASTROINTESTINAL: Abdomen soft, non-tender, nondistended. Hepatic and splenic margins not palpable. Hypoactive bowel sounds MUSCULOSKELETAL: Extremities without clubbing, cyanosis, or edema. No obvious deformities. NEUROLOGICAL: Awake and alert. No obvious cranial nerve deficits. Motor grossly within normal limits. Five out of 5 muscle strength in the arms and legs. Normal speech. PSYCHIATRIC: Appropriate mood and affect; insight and judgment normal. Procedures 07/16/2017 Ascending colectomy. Medications and IVs Current Medications Alvimopan (Entereg) 12 mg STK-MED ONCE .ROUTE Last administered on 07/16/17 13 :52; Start 07/16/17 at 13:45; Stop 07/16/17 at 13:46; Status DC Cefazolin Sodium (Ancef Inj) 1,000 mg STK-MED ONCE .ROUTE Last administered on 07/16/17 13:50; Start 07/16/17 at 13:45; Stop 07/16/17 at 13:46; Status DC Metronidazole 100 ml @ As Directed STK-MED ONCE IV Last administered on 14:10; Start 07/16/17 at 13:45; Stop 07/16/17 at 13:46; Status DC Sodium Chloride 100 ml @ As Directed STK-MED ONCE .ROUTE ; Start 07/16/17 at 13 :46; Stop 07/16/17 at 13:47; Status DC Midazolam HCl (Versed Inj) 2 mg STK-MED ONCE .ROUTE ; Start 07/16/17 at 14:04; Stop 07/16/17 at 14:05; Status DC Fentanyl Citrate (fentaNYL INJ) 100 mcg STK-MED ONCE .ROUTE ; Start 07/16/17 at 14:04; Stop 07/16/17 at 14:05; Status DC Fentanyl Citrate (fentaNYL INJ) 400 mcg STK-MED ONCE .ROUTE ; Start 07/16/17 at 14:04; Stop 07/16/17 at 14:05; Status DC Potassium Cl/ Dextrose/Lact Ringer's 1,000 ml @ 83 mls/hr Q12H3M IV Last administered on 07/19/17 19:04; Start 07/16/17 at 16:00 Sodium Chloride (NS Flush) 2 ml UNSCH PRN IV FLUSH FLUSH AFTER USING IV ACCESS ; Start 07/16/17 at 15:30 Sodium Chloride (NS Flush) 2 ml BID IV FLUSH Last administered on 07/19/17 08: 24; Start 07/16/17 at 21:00 Cefazolin Sodium/ Dextrose 50 ml @ 100 mls/hr Q8H IV Last administered on 07/17 12:08; Start 07/16/17 at 21:00; Stop 07/17/17 at 13:29; Status DC Metronidazole 100 ml @ 200 mls/hr Q8H IV Last administered on 07/17/17 13:13 ; Start 07/16/17 at 22:00; Stop 07/17/17 at 14:29; Status DC Miscellaneous Information (Post-op Orders (for Pharmacy)) STAT ONCE XX Last administered on 07/16/17 15:30; Start 07/16/17 at 15:30; Stop 07/16/17 at 17:55 ; Status DC Acetaminophen/ Hydrocodone Bitart ([place] 5-325 Mg) 1 tab Q4H PRN PO PAIN SCALE 1 TO 4 Last administered on 07/19/17 11:10; Start 07/16/17 at 15:30 Acetaminophen/ Hydrocodone Bitart ([place] 5-325 Mg) 2 tab Q4H PRN PO PAIN SCALE 5 TO 10 Last administered on 07/20/17 05:49; Start 07/16/17 at 15:30 Ketorolac Tromethamine (Toradol Inj) 15 mg Q6H PRN IVP BREAKTHROUGH PAIN Last administered on 07/18/17 23:35; Start 07/16/17 at 15:30; Stop 07/19/17 at 15:29 ; Status DC Alvimopan (Entereg) 12 mg BID PO Last administered on 07/19/17 21:31; Start at 09:00; Stop 07/23/17 at 21:01 Pantoprazole Sodium (Protonix Inj) 40 mg DAILY IVP Last administered on 08:24; Start 07/17/17 at 09:00 Metoclopramide HCl (Reglan Inj) 10 mg Q6HR IVS Last administered on 07/20/17 05:50; Start 07/16/17 at 18:00 Ondansetron HCl (Zofran Inj) 4 mg Q6H PRN IV NAUSEA; Start 07/16/17 at 15:30 Enalaprilat (Vasotec Inj) 1.25 mg Q4H PRN IV SYS BP GREATER THAN 160 MMHG Last administered on 07/17/17 21:42; Start 07/16/17 at 15:30 Zolpidem Tartrate (Ambien) 5 mg HS PRN PO INSOMNIA; Start 07/16/17 at 15:30 Benzocaine/Menthol (Chloraseptic Calin) 1 lozenge UNSCH PRN BUCCAL SORE THROAT; Start 07/16/17 at 15:30 Furosemide (Lasix Inj) 20 mg Q12HR IV Last administered on 07/19/17 08:24; Start 07/16/17 at 21:00; Stop 07/19/17 at 09:01; Status DC Potassium Chloride 100 ml @ 50 mls/hr UNSCH PRN IV POTASSIUM 3 TO 3.5; Start 07/16/17 at 15:30 Potassium Chloride 100 ml @ 25 mls/hr UNSCH PRN IV POTASSIUM LESS THAN 3; Start 07/16/17 at 15:30 Naloxone HCl (Narcan Inj) 0.4 mg UNSCH PRN IV RESPIRATORY RATE LESS THAN 10; Start 07/16/17 at 15:30 Morphine Sulfate (Morphine 1 Mg/ ml BUSINESS PLANNING DIRECTOR) 30 mg UNSCH IV Last administered on 00:24; Start 07/16/17 at 15:30; Stop 07/18/17 at 08:00; Status DC BUSINESS PLANNING DIRECTOR Dosage Infused (Pha) 1 Q8HR .XX Last administered on 07/18/17 06:00; Start 07/16/17 at 15:30; Stop 07/18/17 at 08:00; Status DC Insulin Human Regular (NovoLIN R SUPPLEMENTAL SCALE) 1 ACHS SQ Last administered on 07/20/17 06:25; Start 07/16/17 at 16:00 Dextrose (D50w (Vial) Inj) 50 ml UNSCH PRN IV PUSH HYPOGLYCEMIA-SEE COMMENTS; Start 07/16/17 at 15:30 Glucagon (Glucagon Inj) 1 mg UNSCH PRN OTHER HYPOGLYCEMIA-SEE COMMENTS; Start 07/16/17 at 15:30 Levothyroxine Sodium (Synthroid) 50 mcg DAILY@0600 PO Last administered on 07/20 05:49; Start 07/17/17 at 06:00 Morphine Sulfate (*morphine INJ PERIprocedure ONLY) 8 mg STK-MED ONCE .ROUTE Last administered on 07/16/17 16:04; Start 07/16/17 at 16:02; Stop 07/16/17 at 16:03; Status DC Miscellaneous Information ALL NURSING DEPARTME... UNSCH PRN .XX SEE LABEL COMMENTS; Start 07/16/17 at 16:15; Stop 07/17/17 at 16:14; Status DC Morphine Sulfate (*morphine INJ PERIprocedure ONLY) 8 mg STK-MED ONCE .ROUTE Last administered on 07/16/17 16:21; Start 07/16/17 at 16:20; Stop 07/16/17 at 16:21; Status DC Morphine Sulfate (*morphine INJ PERIprocedure ONLY) 8 mg STK-MED ONCE .ROUTE Last administered on 07/16/17 16:26; Start 07/16/17 at 16:27; Stop 07/16/17 at 16:28; Status DC Hydromorphone HCl (*DILAUDID PF INJ PERIprocedural ONLY) 1 mg STK-MED ONCE .ROUTE Last administered on 07/16/17 16:39; Start 07/16/17 at 16:40; Stop at 16:41; Status DC Metoprolol Tartrate (Lopressor Inj) 5 mg NOW ONCE IV PUSH ; Start 07/18/17 at 22:15; Stop 07/18/17 at 22:16; Status Cancel Metoprolol Tartrate (Lopressor Inj) 5 mg UNSCH X1 PRN IV PUSH IF HR > 130 BPM IN 30 MINS Last administered on 07/18/17 23:22; Start 07/18/17 at 22:45; Stop 07/18/17 at 23:06; Status DC Metoprolol Tartrate (Lopressor Inj) 5 mg UNSCH X1 PRN IV PUSH SEE LABEL COMMENTS Last administered on 07/18/17 23:49; Start 07/18/17 at 23:15; Stop at 07:00; Status DC Diltiazem HCl 125 mg/Sodium Chloride 125 ml @ 5 mls/hr TITRATE PRN IV Tachycardia Last administered on 07/19/17 18:04; Start 07/18/17 at 23:15 Metoprolol Tartrate (Lopressor Inj) 5 mg NOW ONCE IV PUSH ; Start 07/18/17 at 23:30; Stop 07/18/17 at 23:31; Status DC Diltiazem HCl (Cardizem Inj) 10 mg NOW ONCE IV Last administered on 07/19/17 01:47; Start 07/19/17 at 01:00; Stop 07/19/17 at 01:01; Status DC Insulin Detemir (Levemir Inj) 7 units HS SQ Last administered on 07/19/17 21: 00; Start 07/19/17 at 21:00 Enoxaparin Sodium (Lovenox Inj) 40 mg Q24H SQ Last administered on 07/19/17 21 :32; Start 07/19/17 at 20:00 Diltiazem HCl (Cardizem) 30 mg QID PO Last administered on 07/19/17 21:31; Start 07/19/17 at 14:00 Urinary Catheter: No Vascular Central Line Catheter: No A/P Problem List: (1) Atrial fibrillation with rapid ventricular response ICD Code: I48.91 - Unspecified atrial fibrillation (2) Colon cancer ICD Code: C18.9 - Malignant neoplasm of colon, unspecified Assessment and Plan Mr. Robbins is a 76-year-old male recently diagnosed with bladder and colon cancer who presented 07/16/2017 for an elective ascending colectomy by Dr. Hess who was transferred to CICU after developing atrial fibrillation with rapid ventricular response. Atrial fibrillation with rapid ventricular response - new onset, likely started post op. - Patient is currently in Afib, rate controlled. - [id number] score 3 (Age, DM, HTN). - Patient will likely benefit from Anticoagulation whenever it is appropriate from colorectal surgery's standpoint. - Troponin negative so far. - TSH level pending. - CXR shows left lower lobe atelectasis vs. infiltrates. Will continue incentive spirometry. - Cardiology consult pending. Hemoglobin yesterday SWITCH TO PO CARDIZEM Colon CA s/p ascending colectomy - Management per Dr. Hess - Currently on Alvimopan 12mg BID. DIABETES SLIDING SCALE COVERAGE HYPOTHYROIDISM HOME MEDS HYPERLIPIDEMIA HOME MEDS Diabetes mellitus type 2 - On medium SS regular insulin at [facility] - Blood glucose is close to 200s. Will add long acting Levemir 7 units QHS. - home metformin is on hold Full code. SCDs. DW RN AND PT Problem Qualifiers (1) Colon cancer: Qualified Codes: C18.3 - Malignant neoplasm of hepatic flexure Lucio Constantino DO Jul 20, 2017 08:31
[2017-07-20] MEDS: PANTOPRAZOLE SODIUM 40 MG VIAL IVP SCH (10:05)
[2017-07-20] MEDS: D5-LR + KCL 20 MEQ INJ 1,000 ML IV SCH (10:05)
[2017-07-20] MEDS: ALVIMOPAN 12 MG CAPSULE PO SCH ×2 (10:06→20:54)
[2017-07-20] MEDS: CHOLECALCIFEROL (VIT D3) 5000 UNIT CAP PO SCH (10:06)
[2017-07-20] MEDS: SODIUM CHLORIDE 0.9% FLUSH 10 ML FLUSH IV FLUSH SCH ×2 (10:07→20:55)
[2017-07-20] MEDS: MULTIVITAMIN TAB PO SCH (10:11)
[2017-07-20] MEDS: DILTIAZEM HCL 30 MG TAB PO SCH ×4 (10:11→20:54)
--- NOTE | 2017-07-20 10:57 | HHI.PR ---
Subjective Remarks Sitting in chair. No N or V. Multiple BMs. Pt claims that he hasn't ambulated. Objective Vital Signs Date Time Temp Pulse Resp B/P (MAP) Pulse Ox O2 Delivery O2 Flow Rate FiO2 07/20/17 10:12 142/80 (100) 07/20/17 07:54 99.0 85 16 105/56 (72) 95 07/20/17 06:37 77 07/20/17 05:47 99.1 07/20/17 05:35 86 07/20/17 04:08 71 07/20/17 03:31 98.5 98 16 136/66 (89) 95 07/20/17 03:31 87 07/20/17 02:31 78 07/20/17 01:33 79 07/20/17 00:22 83 07/19/17 23:40 98.3 75 16 119/69 (86) 94 07/19/17 23:21 92 07/19/17 22:00 92 07/19/17 21:00 89 07/19/17 20:10 97 07/19/17 19:55 95 07/19/17 19:55 98.7 63 18 122/67 (85) 93 07/19/17 19:04 63 122/67 07/19/17 18:40 102 130/64 07/19/17 18:08 155 07/19/17 18:04 157 153/70 07/19/17 17:00 94 07/19/17 16:12 94 07/19/17 15:42 98.0 82 16 117/60 (79) 97 07/19/17 15:42 83 07/19/17 14:04 85 129/52 07/19/17 14:03 85 07/19/17 13:13 82 07/19/17 13:13 82 117/58 07/19/17 12:12 16 07/19/17 12:03 85 07/19/17 12:03 85 101/65 07/19/17 11:23 98.2 97 16 112/62 (79) 96 07/19/17 11:23 124 I/O 07/19/17 07/19/17 07/19/17 07/20/17 07/20/17 07/20/17 07:00 15:00 23:00 07:00 15:00 23:00 Intake Total 1735 ml 1361 ml 1498 ml Output Total 850 ml 225 ml Balance 1735 ml 511 ml 1273 ml Intake Oral 120 ml 360 ml 480 ml IV Total 1615 ml 1001 ml 1018 ml Output Urine Total 850 ml 225 ml # Voids 1 1 # Bowel Movements 2 2 1 Result Diagram: 07/19/17 0556 07/19/17 1147 Objective Remarks VS-s NSR Abd: soft,dressing removed by me I&Os-OK Labs-OK Assessment and Plan Assessment and Plan Stable POD#4. A-fib resolved. Glucose sl elevated. Will make sure no Dextrose in IVs. IV at 30/hr. Regular soft diet. Must ambulate. D/C anytime OK with CRS Carlos Hess MD Jul 20, 2017 10:57
[2017-07-20] MEDS ORDERED: POTASSIUM CHLORIDE INJ 20 MEQ in LACTATED RINGER'S 1000 ML INJ 1,000 ML IV SCH (12:00)
--- NOTE | 2017-07-20 15:08 | PD.CARD.PN ---
Subjective Subjective Remarks no CV complaints Back in SR Episode of Afib Overnight Objective Medications Current Medications Medications (Trade) Dose Ordered Sig/Daniel Route Start Time Stop Time Status Last Admin (NS Flush) 2 ml UNSCH PRN IV FLUSH 07/16/17 15:30 (NS Flush) 2 ml BID IV FLUSH 07/16/17 21:00 07/20/17 10:07 ([place] 5-325 Mg) 1 tab Q4H PRN PO 07/16/17 15:30 07/19/17 11:10 ([place] 5-325 Mg) 2 tab Q4H PRN PO 07/16/17 15:30 07/20/17 13:58 (Entereg) 12 mg BID PO 07/17/17 09:00 07/23/17 21:01 07/20/17 10:06 (Protonix Inj) 40 mg DAILY IVP 07/17/17 09:00 07/20/17 10:05 (Reglan Inj) 10 mg Q6HR IVS 07/16/17 18:00 07/20/17 12:12 (Zofran Inj) 4 mg Q6H PRN IV 07/16/17 15:30 (Vasotec Inj) 1.25 mg Q4H PRN IV 07/16/17 15:30 07/17/17 21:42 (Ambien) 5 mg HS PRN PO 07/16/17 15:30 (Chloraseptic Calin) 1 lozenge UNSCH PRN BUCCAL 07/16/17 15:30 Potassium Chloride 100 ml @ 50 mls/hr UNSCH PRN IV 07/16/17 15:30 Potassium Chloride 100 ml @ 25 mls/hr UNSCH PRN IV 07/16/17 15:30 (Narcan Inj) 0.4 mg UNSCH PRN IV 07/16/17 15:30 (NovoLIN R SUPPLEMENTAL SCALE) 1 ACHS SQ 07/16/17 16:00 07/20/17 06:25 (D50w (Vial) Inj) 50 ml UNSCH PRN IV PUSH 07/16/17 15:30 (Glucagon Inj) 1 mg UNSCH PRN OTHER 07/16/17 15:30 (Synthroid) 50 mcg DAILY@0600 PO 07/17/17 06:00 07/20/17 05:49 Diltiazem HCl 125 mg/Sodium Chloride 125 ml @ 5 mls/hr TITRATE PRN IV 07/18/17 23:15 07/19/17 18:04 (Levemir Inj) 7 units HS SQ 07/19/17 21:00 07/19/17 21:00 (Lovenox Inj) 40 mg Q24H SQ 07/19/17 20:00 07/19/17 21:32 (Cardizem) 30 mg QID PO 07/19/17 14:00 07/20/17 13:58 (Vitamin D3) 5,000 units DAILY PO 07/20/17 09:00 07/20/17 10:06 (Theragran) 1 tab DAILY PO 07/20/17 09:45 07/20/17 10:11 Potassium Chloride 20 meq/ Lactated Ringer's 1,010 ml @ 30 mls/hr Q24H IV 07/20/17 12:00 07/20/17 12:11 Vital Signs / I&O Vital Signs Date Time Temp Pulse Resp B/P (MAP) Pulse Ox O2 Delivery O2 Flow Rate FiO2 07/20/17 13:59 120/65 (83) 07/20/17 13:00 84 07/20/17 12:00 94 07/20/17 11:30 98.4 93 18 139/50 (79) 97 07/20/17 11:00 79 07/20/17 10:12 142/80 (100) 07/20/17 10:00 98 07/20/17 09:00 100 07/20/17 08:00 88 07/20/17 07:54 99.0 85 16 105/56 (72) 95 07/20/17 07:00 87 07/20/17 06:37 77 07/20/17 05:47 99.1 07/20/17 05:35 86 07/20/17 04:08 71 07/20/17 03:31 98.5 98 16 136/66 (89) 95 07/20/17 03:31 87 07/20/17 02:31 78 07/20/17 01:33 79 07/20/17 00:22 83 07/19/17 23:40 98.3 75 16 119/69 (86) 94 07/19/17 23:21 92 07/19/17 22:00 92 07/19/17 21:00 89 07/19/17 20:10 97 07/19/17 19:55 95 07/19/17 19:55 98.7 63 18 122/67 (85) 93 07/19/17 19:04 63 122/67 07/19/17 18:40 102 130/64 07/19/17 18:08 155 07/19/17 18:04 157 153/70 07/19/17 17:00 94 07/19/17 16:12 94 07/19/17 15:42 98.0 82 16 117/60 (79) 97 07/19/17 15:42 83 I/O 07/19/17 07/19/17 07/19/17 07/20/17 07/20/17 07/20/17 07:00 15:00 23:00 07:00 15:00 23:00 Intake Total 1735 ml 1361 ml 1498 ml 150 ml Output Total 850 ml 225 ml Balance 1735 ml 511 ml 1273 ml 150 ml Intake Oral 120 ml 360 ml 480 ml IV Total 1615 ml 1001 ml 1018 ml 150 ml Output Urine Total 850 ml 225 ml # Voids 1 1 # Bowel Movements 2 2 1 Physical Exam GENERAL: Well-nourished, well-developed patient. SKIN: Warm and dry. HEAD: Normocephalic. EYES: No scleral icterus. No injection or drainage. NECK: Supple, trachea midline. No JVD or lymphadenopathy. CARDIOVASCULAR: Regular rate and rhythm without murmurs, gallops, or rubs. RESPIRATORY: Breath sounds equal bilaterally. No accessory muscle use. GASTROINTESTINAL: Abdomen soft, non-tender, nondistended. EXTREMITIES: No cyanosis, or edema. NEUROLOGICAL: Awake, alert, and oriented x 3. Non-focal. Assessment and Plan Problem List: (1) Atrial fibrillation with rapid ventricular response ICD Codes: I48.91 - Unspecified atrial fibrillation Plan: Post operative Afib with RVR. Asymptomatic. hemodynamically table. Negative troponin. Afib now resolved back in NSR. No CV complaints. Recommendations: - Cont Cardizem 30mg PO QID - Encourage incentive spirometry and early ambulation - Outpatient Cardiology f/u upon discharge - [id number] Score= 2. OAC recommended if not contraindications - Stable from CV standpoint to d/c home today Thank you for the opportunity to take par in the care of this patient Will be available on a PRN basis for any questions or concerns (2) Colon cancer ICD Codes: C18.9 - Malignant neoplasm of colon, unspecified Problem Qualifiers (1) Colon cancer: Qualified Codes: C18.3 - Malignant neoplasm of hepatic flexure Jesus Bojorquez MD Jul 20, 2017 15:07
[2017-07-20] MEDS: ENOXAPARIN SODIUM 40 MG/0.4 ML SYRINGE SQ SCH (20:54)
[2017-07-20] MEDS: INSULIN DETEMIR 100 UNITS/ML VIAL SQ SCH (20:54)
[2017-07-21] VITALS (22 sets, daily range): BP systolic 148–161; BP diastolic 73–83; PULSE 77–104; RESP 16–18; TEMP 99–99.5; O2SAT 94–96
[2017-07-21] MEDS: METOCLOPRAMIDE HCL 10 MG/2 ML VIAL IVS SCH ×2 (05:51→11:39)
[2017-07-21] MEDS: LEVOTHYROXINE SODIUM 50 MCG TAB PO SCH (05:51)
[2017-07-21] MEDS: INSULIN NovoLIN REGULAR SUPPLEMENTAL SCALE SQ SCH ×3 (05:52→16:00)
[2017-07-21 07:13] LABS: AUTOMATED NEUTROPHIL # 4.4 TH/MM3 (1.8-7.7); BASOPHIL # 0.1 TH/MM3 (0-0.2); BASOPHIL % 0.9 % (0.0-2.0); EOSINOPHIL # 0.2 TH/MM3 (0-0.4); EOSINOPHIL % 3.6 % (0.0-4.0); HEMATOCRIT 31.4 % (39.0-51.0); HEMO FLAGS DIFF FINAL; LYMPH % 24.1 % (9.0-44.0); LYMPHOCYTE # 1.7 TH/MM3 (1.0-4.8); MEAN CELL VOLUME 83.2 FL (80.0-100.0); MEAN CORPUSCULAR HEMOGLOBIN 27.3 PG (27.0-34.0); MEAN CORPUSCULAR HGB CONC 32.8 % (32.0-36.0); MONO % 8.6 % (0.0-8.0); NEUT % 62.8 % (16.0-70.0); PLATELET COUNT 183 TH/MM3 (150-450); RED BLOOD COUNT 3.77 MIL/MM3 (4.50-5.90); RED CELL DISTRIBUTION WIDTH 15.2 % (11.6-17.2)
[2017-07-21 07:44] LABS: ANION GAP 9 MEQ/L (5-15); AST (GOT) 21 U/L (15-37); BICARBONATE 26.6 MEQ/L (21.0-32.0); BLOOD UREA NITROGEN 10 MG/DL (7-18); CHLORIDE 105 MEQ/L (98-107); GLOMERULAR FILTRATION RATE 86 ML/MIN (>89); SODIUM (NA) 141 MEQ/L (136-145)
[2017-07-21] MEDS ORDERED: HYDR-3516 PO (07:48)
[2017-07-21] MEDS ORDERED: CARD120C4 PO (07:48)
[2017-07-21] MEDS ORDERED: PROT40TA PO (07:48)
[2017-07-21] MEDS ORDERED: APIX5TAB PO (07:48)
[2017-07-21] MEDS ORDERED: AMBI5TAB PO (07:48)
--- NOTE | 2017-07-21 07:52 | HHI.PR ---
Subjective Remarks Patient will be switched to oral Cardizem and to Eliquis 5 mg 1 by mouth twice a day Can be discharged from medical perspective With home health care Medically stable for discharge Objective Vitals Vital Signs Date Time Temp Pulse Resp B/P (MAP) Pulse Ox O2 Delivery O2 Flow Rate FiO2 07/21/17 07:24 99.5 102 16 159/83 (108) 94 07/21/17 06:15 87 07/21/17 05:18 83 07/21/17 04:30 95 07/21/17 03:17 77 07/21/17 03:15 99.1 92 18 161/81 (107) 96 149/73 (98) 07/21/17 02:15 77 07/21/17 01:09 82 07/21/17 00:03 78 07/20/17 23:00 86 07/20/17 23:00 98.7 87 16 138/72 (94) 93 07/20/17 22:00 90 07/20/17 21:00 84 07/20/17 20:15 88 07/20/17 19:32 95 07/20/17 19:32 98.6 82 18 137/71 (93) 95 07/20/17 18:24 152/75 (100) 07/20/17 18:00 96 07/20/17 17:00 97 07/20/17 16:00 88 07/20/17 15:00 99.0 81 16 138/75 (96) 97 07/20/17 15:00 92 07/20/17 14:00 96 07/20/17 13:59 120/65 (83) 07/20/17 13:00 84 07/20/17 12:00 94 07/20/17 11:30 98.4 93 18 139/50 (79) 97 07/20/17 11:00 79 07/20/17 10:12 142/80 (100) 07/20/17 10:00 98 07/20/17 09:00 100 07/20/17 08:00 88 07/20/17 07:54 99.0 85 16 105/56 (72) 95 I/O 07/20/17 07/20/17 07/20/17 07/21/17 07/21/17 07/21/17 07:00 15:00 23:00 07:00 15:00 23:00 Intake Total 1498 ml 150 ml 480 ml 572 ml Output Total 225 ml 1300 ml Balance 1273 ml 150 ml -820 ml 572 ml Intake Oral 480 ml 480 ml 240 ml IV Total 1018 ml 150 ml 332 ml Output Urine Total 225 ml 1300 ml # Voids 1 1 # Bowel Movements 1 2 Result Diagram: 07/19/17 0556 07/19/17 1147 Other Results Laboratory Tests Test 07/18/17 22:35 07/19/17 05:56 07/19/17 11:47 07/21/17 06:13 Total Creatine Kinase 773 U/L 582 U/L 533 U/L Creatine Kinase MB 1.4 NG/ML 1.6 NG/ML 1.5 NG/ML Creatine Kinase MB % 0.2 % 0.3 % 0.3 % Troponin I 0.02 NG/ML 0.02 NG/ML LESS THAN 0.02 NG/ML White Blood Count 18.3 TH/MM3 Red Blood Count 4.49 MIL/MM3 Hemoglobin 12.2 GM/DL Hematocrit 37.6 % Mean Corpuscular Volume 83.9 FL Mean Corpuscular Hemoglobin 27.2 PG Mean Corpuscular Hemoglobin Concent 32.4 % Red Cell Distribution Width 15.4 % Platelet Count 265 TH/MM3 Mean Platelet Volume 8.7 FL Neutrophils (%) (Auto) 78.8 % Lymphocytes (%) (Auto) 12.0 % Monocytes (%) (Auto) 8.3 % Eosinophils (%) (Auto) 0.5 % Basophils (%) (Auto) 0.4 % Neutrophils # (Auto) 14.4 TH/MM3 Lymphocytes # (Auto) 2.2 TH/MM3 Monocytes # (Auto) 1.5 TH/MM3 Eosinophils # (Auto) 0.1 TH/MM3 Basophils # (Auto) 0.1 TH/MM3 CBC Comment DIFF FINAL Differential Comment Blood Urea Nitrogen 12 MG/DL Creatinine 1.27 MG/DL Random Glucose 216 MG/DL Total Protein 6.7 GM/DL Albumin 3.0 GM/DL Calcium Level 8.6 MG/DL Alkaline Phosphatase 55 U/L Aspartate Amino Transf (AST/SGOT) 26 U/L Alanine Aminotransferase (ALT/SGPT) 24 U/L Total Bilirubin 0.4 MG/DL Sodium Level 139 MEQ/L Potassium Level 3.8 MEQ/L Chloride Level 101 MEQ/L Carbon Dioxide Level 24.8 MEQ/L Anion Gap 13 MEQ/L Estimat Glomerular Filtration Rate 55 ML/MIN Thyroid Stimulating Hormone 3rd Gen 3.040 uIU/ML Imaging Last Impressions Chest X-Ray 07/19/17 0000 Signed Impressions: Service Date/Time: Wednesday, July 19, 2017 04:37 - CONCLUSION: Stably elongated density in the left lower lobe atelectasis versus infiltrate. Norman Almodovar MD Abdomen X-Ray 07/18/17 0000 Signed Impressions: Service Date/Time: Tuesday, July 18, 2017 15:57 - CONCLUSION: Findings suggestive of ileus. No evidence of free air. Katie Barnes MD Objective Remarks GENERAL: Awake alert and oriented talkative and cooperative SKIN: Warm and dry. HEAD: Atraumatic. Normocephalic. EYES: Pupils equal and round. No scleral icterus. No injection or drainage. Extraocular muscles are grossly intact ENT: No nasal bleeding or discharge. Mucous membranes pink and moist. Tongue is midline NECK: Trachea midline. No JVD. Supple CARDIOVASCULAR: IRRegular rate and rhythm. S1-S2 no S3 or S4 RESPIRATORY: No accessory muscle use. Clear to auscultation. Breath sounds equal bilaterally. GASTROINTESTINAL: Abdomen soft, non-tender, nondistended. Hepatic and splenic margins not palpable. Hypoactive bowel sounds MUSCULOSKELETAL: Extremities without clubbing, cyanosis, or edema. No obvious deformities. NEUROLOGICAL: Awake and alert. No obvious cranial nerve deficits. Motor grossly within normal limits. Five out of 5 muscle strength in the arms and legs. Normal speech. PSYCHIATRIC: Appropriate mood and affect; insight and judgment normal. Procedures 07/16/2017 Ascending colectomy. Medications and IVs Current Medications Alvimopan (Entereg) 12 mg STK-MED ONCE .ROUTE Last administered on 07/16/17 13 :52; Start 07/16/17 at 13:45; Stop 07/16/17 at 13:46; Status DC Cefazolin Sodium (Ancef Inj) 1,000 mg STK-MED ONCE .ROUTE Last administered on 07/16/17 13:50; Start 07/16/17 at 13:45; Stop 07/16/17 at 13:46; Status DC Metronidazole 100 ml @ As Directed STK-MED ONCE IV Last administered on 14:10; Start 07/16/17 at 13:45; Stop 07/16/17 at 13:46; Status DC Sodium Chloride 100 ml @ As Directed STK-MED ONCE .ROUTE ; Start 07/16/17 at 13 :46; Stop 07/16/17 at 13:47; Status DC Midazolam HCl (Versed Inj) 2 mg STK-MED ONCE .ROUTE ; Start 07/16/17 at 14:04; Stop 07/16/17 at 14:05; Status DC Fentanyl Citrate (fentaNYL INJ) 100 mcg STK-MED ONCE .ROUTE ; Start 07/16/17 at 14:04; Stop 07/16/17 at 14:05; Status DC Fentanyl Citrate (fentaNYL INJ) 400 mcg STK-MED ONCE .ROUTE ; Start 07/16/17 at 14:04; Stop 07/16/17 at 14:05; Status DC Potassium Cl/ Dextrose/Lact Ringer's 1,000 ml @ 83 mls/hr Q12H3M IV Last administered on 07/20/17 10:05; Start 07/16/17 at 16:00; Stop 07/20/17 at 10:39 ; Status DC Sodium Chloride (NS Flush) 2 ml UNSCH PRN IV FLUSH FLUSH AFTER USING IV ACCESS ; Start 07/16/17 at 15:30 Sodium Chloride (NS Flush) 2 ml BID IV FLUSH Last administered on 07/20/17 10: 07; Start 07/16/17 at 21:00 Cefazolin Sodium/ Dextrose 50 ml @ 100 mls/hr Q8H IV Last administered on 07/17 12:08; Start 07/16/17 at 21:00; Stop 07/17/17 at 13:29; Status DC Metronidazole 100 ml @ 200 mls/hr Q8H IV Last administered on 07/17/17 13:13 ; Start 07/16/17 at 22:00; Stop 07/17/17 at 14:29; Status DC Miscellaneous Information (Post-op Orders (for Pharmacy)) STAT ONCE XX Last administered on 07/16/17 15:30; Start 07/16/17 at 15:30; Stop 07/16/17 at 17:55 ; Status DC Acetaminophen/ Hydrocodone Bitart ([place] 5-325 Mg) 1 tab Q4H PRN PO PAIN SCALE 1 TO 4 Last administered on 07/20/17 23:35; Start 07/16/17 at 15:30 Acetaminophen/ Hydrocodone Bitart ([place] 5-325 Mg) 2 tab Q4H PRN PO PAIN SCALE 5 TO 10 Last administered on 07/20/17 18:19; Start 07/16/17 at 15:30 Ketorolac Tromethamine (Toradol Inj) 15 mg Q6H PRN IVP BREAKTHROUGH PAIN Last administered on 07/18/17 23:35; Start 07/16/17 at 15:30; Stop 07/19/17 at 15:29 ; Status DC Alvimopan (Entereg) 12 mg BID PO Last administered on 07/20/17 20:54; Start at 09:00; Stop 07/23/17 at 21:01 Pantoprazole Sodium (Protonix Inj) 40 mg DAILY IVP Last administered on 10:05; Start 07/17/17 at 09:00 Metoclopramide HCl (Reglan Inj) 10 mg Q6HR IVS Last administered on 07/21/17 05:51; Start 07/16/17 at 18:00 Ondansetron HCl (Zofran Inj) 4 mg Q6H PRN IV NAUSEA; Start 07/16/17 at 15:30 Enalaprilat (Vasotec Inj) 1.25 mg Q4H PRN IV SYS BP GREATER THAN 160 MMHG Last administered on 07/17/17 21:42; Start 07/16/17 at 15:30 Zolpidem Tartrate (Ambien) 5 mg HS PRN PO INSOMNIA Last administered on 23:35; Start 07/16/17 at 15:30 Benzocaine/Menthol (Chloraseptic Calin) 1 lozenge UNSCH PRN BUCCAL SORE THROAT; Start 07/16/17 at 15:30 Furosemide (Lasix Inj) 20 mg Q12HR IV Last administered on 07/19/17 08:24; Start 07/16/17 at 21:00; Stop 07/19/17 at 09:01; Status DC Potassium Chloride 100 ml @ 50 mls/hr UNSCH PRN IV POTASSIUM 3 TO 3.5; Start 07/16/17 at 15:30 Potassium Chloride 100 ml @ 25 mls/hr UNSCH PRN IV POTASSIUM LESS THAN 3; Start 07/16/17 at 15:30 Naloxone HCl (Narcan Inj) 0.4 mg UNSCH PRN IV RESPIRATORY RATE LESS THAN 10; Start 07/16/17 at 15:30 Morphine Sulfate (Morphine 1 Mg/ ml PATHOLOGY LABORATORY TECHNOLOGIST) 30 mg UNSCH IV Last administered on 00:24; Start 07/16/17 at 15:30; Stop 07/18/17 at 08:00; Status DC PATHOLOGY LABORATORY TECHNOLOGIST Dosage Infused (Pha) 1 Q8HR .XX Last administered on 07/18/17 06:00; Start 07/16/17 at 15:30; Stop 07/18/17 at 08:00; Status DC Insulin Human Regular (NovoLIN R SUPPLEMENTAL SCALE) 1 ACHS SQ Last administered on 07/20/17 20:55; Start 07/16/17 at 16:00 Dextrose (D50w (Vial) Inj) 50 ml UNSCH PRN IV PUSH HYPOGLYCEMIA-SEE COMMENTS; Start 07/16/17 at 15:30 Glucagon (Glucagon Inj) 1 mg UNSCH PRN OTHER HYPOGLYCEMIA-SEE COMMENTS; Start 07/16/17 at 15:30 Levothyroxine Sodium (Synthroid) 50 mcg DAILY@0600 PO Last administered on 07/21 05:51; Start 07/17/17 at 06:00 Morphine Sulfate (*morphine INJ PERIprocedure ONLY) 8 mg STK-MED ONCE .ROUTE Last administered on 07/16/17 16:04; Start 07/16/17 at 16:02; Stop 07/16/17 at 16:03; Status DC Miscellaneous Information ALL NURSING DEPARTME... UNSCH PRN .XX SEE LABEL COMMENTS; Start 07/16/17 at 16:15; Stop 07/17/17 at 16:14; Status DC Morphine Sulfate (*morphine INJ PERIprocedure ONLY) 8 mg STK-MED ONCE .ROUTE Last administered on 07/16/17 16:21; Start 07/16/17 at 16:20; Stop 07/16/17 at 16:21; Status DC Morphine Sulfate (*morphine INJ PERIprocedure ONLY) 8 mg STK-MED ONCE .ROUTE Last administered on 07/16/17 16:26; Start 07/16/17 at 16:27; Stop 07/16/17 at 16:28; Status DC Hydromorphone HCl (*DILAUDID PF INJ PERIprocedural ONLY) 1 mg STK-MED ONCE .ROUTE Last administered on 07/16/17 16:39; Start 07/16/17 at 16:40; Stop at 16:41; Status DC Metoprolol Tartrate (Lopressor Inj) 5 mg NOW ONCE IV PUSH ; Start 07/18/17 at 22:15; Stop 07/18/17 at 22:16; Status Cancel Metoprolol Tartrate (Lopressor Inj) 5 mg UNSCH X1 PRN IV PUSH IF HR > 130 BPM IN 30 MINS Last administered on 07/18/17 23:22; Start 07/18/17 at 22:45; Stop 07/18/17 at 23:06; Status DC Metoprolol Tartrate (Lopressor Inj) 5 mg UNSCH X1 PRN IV PUSH SEE LABEL COMMENTS Last administered on 07/18/17 23:49; Start 07/18/17 at 23:15; Stop at 07:00; Status DC Diltiazem HCl 125 mg/Sodium Chloride 125 ml @ 5 mls/hr TITRATE PRN IV Tachycardia Last administered on 07/19/17 18:04; Start 07/18/17 at 23:15 Metoprolol Tartrate (Lopressor Inj) 5 mg NOW ONCE IV PUSH ; Start 07/18/17 at 23:30; Stop 07/18/17 at 23:31; Status DC Diltiazem HCl (Cardizem Inj) 10 mg NOW ONCE IV Last administered on 07/19/17 01:47; Start 07/19/17 at 01:00; Stop 07/19/17 at 01:01; Status DC Insulin Detemir (Levemir Inj) 7 units HS SQ Last administered on 07/20/17 20: 54; Start 07/19/17 at 21:00 Enoxaparin Sodium (Lovenox Inj) 40 mg Q24H SQ Last administered on 07/20/17 20 :54; Start 07/19/17 at 20:00 Diltiazem HCl (Cardizem) 30 mg QID PO Last administered on 07/20/17 20:54; Start 07/19/17 at 14:00 Cholecalciferol (Vitamin D3) 5,000 units DAILY PO Last administered on 10:06; Start 07/20/17 at 09:00 Multivitamins (Theragran) 1 tab DAILY PO Last administered on 07/20/17 10:11; Start 07/20/17 at 09:45 Potassium Chloride 20 meq/ Lactated Ringer's 1,010 ml @ 30 mls/hr Q24H IV Last administered on 07/20/17 12:11; Start 07/20/17 at 12:00 Urinary Catheter: No Vascular Central Line Catheter: No A/P Problem List: (1) Atrial fibrillation with rapid ventricular response ICD Code: I48.91 - Unspecified atrial fibrillation (2) Colon cancer ICD Code: C18.9 - Malignant neoplasm of colon, unspecified Assessment and Plan Mr. Robbins is a 76-year-old male recently diagnosed with bladder and colon cancer who presented 07/16/2017 for an elective ascending colectomy by Dr. Hess who was transferred to CICU after developing atrial fibrillation with rapid ventricular response. Atrial fibrillation with rapid ventricular response - new onset, likely started post op. - Patient is currently in Afib, rate controlled. - [id number] score 3 (Age, DM, HTN). - Patient will likely benefit from Anticoagulation whenever it is appropriate from colorectal surgery's standpoint. - Troponin negative so far. - TSH level pending. - CXR shows left lower lobe atelectasis vs. infiltrates. Will continue incentive spirometry. - Cardiology consult pending. Hemoglobin yesterday SWITCH TO PO CARDIZEM Switch to Eliquis 5 mg by mouth twice a day Colon CA s/p ascending colectomy - Management per Dr. Hess - Currently on Alvimopan 12mg BID. DIABETES SLIDING SCALE COVERAGE HYPOTHYROIDISM HOME MEDS HYPERLIPIDEMIA HOME MEDS Diabetes mellitus type 2 - On medium SS regular insulin at [facility] - Blood glucose is close to 200s. -Restart home metformin Full code. SCDs. DW RN AND PT Home health care Problem Qualifiers (1) Colon cancer: Qualified Codes: C18.3 - Malignant neoplasm of hepatic flexure Lucio Constantino DO Jul 21, 2017 07:52
--- NOTE | 2017-07-21 07:53 | HHI.FF ---
Face to Face Verification Diagnosis: (1) GERD (gastroesophageal reflux disease) (2) Atrial fibrillation with rapid ventricular response (3) Colon cancer Physical Therapy Order: Evaluate and Treat, Improve ambulation, Strength and gait training Occupational Therapy Order: Evaluate and Treat, Improve ADL, Gross motor coordination, Fine motor coordination Home Health Nursing Order: Medical education Medication education-adverse effect Wound care and dressing changes Nursing assessment with vital signs Home Health Aide Order: To Assist In: Bathing and personal care, inweaver and meal prep I have seen patient Vasile Robbins on 07/21/17. My clinical findings support the need for the requested home health care services because: Deconditioned w/ increased weakness I certify that my clinical findings support that this patient is homebound because: Post-op weakness Lucio Constantino DO Jul 21, 2017 07:53
[2017-07-21 08:03] LABS: ALKALINE PHOSPHATASE 51 U/L (45-117); ALT (GPT) 22 U/L (12-78); FREE T4 1.35 NG/DL (0.76-1.46); MAGNESIUM 1.9 MG/DL (1.5-2.5); TOTAL BILIRUBIN ADULT 0.3 MG/DL (0.2-1.0)
[2017-07-21] MEDS: DILTIAZEM HCL 30 MG TAB PO SCH ×2 (08:35→13:52)
[2017-07-21] MEDS: MULTIVITAMIN TAB PO SCH (08:35)
[2017-07-21] MEDS: PANTOPRAZOLE SODIUM 40 MG VIAL IVP SCH (08:35)
[2017-07-21] MEDS: CHOLECALCIFEROL (VIT D3) 5000 UNIT CAP PO SCH (08:35)
[2017-07-21] MEDS: ALVIMOPAN 12 MG CAPSULE PO SCH (08:35)
[2017-07-21] MEDS: SODIUM CHLORIDE 0.9% FLUSH 10 ML FLUSH IV FLUSH SCH (08:36)
[2017-07-21] MEDS ORDERED: APIXABAN 5 MG TABLET PO SCH (09:00)
[2017-07-21] MEDS: ACETAMINOPHEN/HYDROcodone 325 MG/5 MG TAB PO PRN ×2 (11:40→17:01)
[2017-07-21 12:22] LABS: HEMOGLOBIN A1b 2.2 %; HEMOGLOBIN Ao 84.1 %; HEMOGLOBIN P3 4.1 %
--- NOTE | 2017-07-21 16:53 | HHI.DCPOC ---
Discharge Care Plan Diagnosis: (1) Colon cancer Your Health Problems Are: Incision/Drains Appetite Changes Irregular Bowel Function Exercise Tolerance Goals to Promote Your Health * To prevent worsening of your condition and complications * To maintain your health at the optimal level Directions to Meet Your Goals Take your medications as prescribed Follow your dietary instruction Follow activity as directed Keep your appointments as scheduled Take your immunizations and boosters as scheduled If your symptoms worsen call your PCP, if no PCP go to Urgent Care Center or Emergency Room Smoking is Dangerous to Your Health. Avoid second hand smoke Call the 24-hour hour crisis hotline for domestic abuse at Carlos Hess MD Jul 21, 2017 16:53
--- NOTE | 2017-07-21 16:57 | HHI.PR ---
Subjective Remarks Sitting in chair. No N or V. Multiple BMs. Ambulating Objective Vital Signs Date Time Temp Pulse Resp B/P (MAP) Pulse Ox O2 Delivery O2 Flow Rate FiO2 07/21/17 15:01 99.0 101 16 150/83 (105) 94 07/21/17 15:00 83 07/21/17 14:00 100 07/21/17 13:00 86 07/21/17 12:00 98 07/21/17 11:10 99.0 88 16 148/82 (104) 95 07/21/17 11:00 103 07/21/17 10:00 86 07/21/17 09:00 104 07/21/17 08:00 100 07/21/17 07:24 99.5 102 16 159/83 (108) 94 07/21/17 07:00 100 07/21/17 06:15 87 07/21/17 05:18 83 07/21/17 04:30 95 07/21/17 03:17 77 07/21/17 03:15 99.1 92 18 161/81 (107) 96 149/73 (98) 07/21/17 02:15 77 07/21/17 01:09 82 07/21/17 00:03 78 07/20/17 23:00 86 07/20/17 23:00 98.7 87 16 138/72 (94) 93 07/20/17 22:00 90 07/20/17 21:00 84 07/20/17 20:15 88 07/20/17 19:32 95 07/20/17 19:32 98.6 82 18 137/71 (93) 95 07/20/17 18:24 152/75 (100) 07/20/17 18:00 96 07/20/17 17:00 97 I/O 07/20/17 07/20/17 07/20/17 07/21/17 07/21/17 07/21/17 07:00 15:00 23:00 07:00 15:00 23:00 Intake Total 1498 ml 150 ml 480 ml 572 ml Output Total 225 ml 1300 ml Balance 1273 ml 150 ml -820 ml 572 ml Intake Oral 480 ml 480 ml 240 ml IV Total 1018 ml 150 ml 332 ml Output Urine Total 225 ml 1300 ml # Voids 1 1 # Bowel Movements 1 2 Result Diagram: 07/21/1761207/21/17612 Objective Remarks VS-S NSR Abd: soft I&Os-OK Labs-OK Assessment and Plan Assessment and Plan Stable POD#5. A-fib resolved. D/C today. No HHC needed from CRS standpoint Carlos Hess MD Jul 21, 2017 16:57
--- NOTE | 2017-08-25 12:40 | MD ---
cc: HALI STACK,Cy GARCIA M.D. ADMISSION DATE: 07/16/2017 DISCHARGE DATE: 07/21/2017 ADMISSION DIAGNOSIS Carcinoma of the hepatic flexure. DISCHARGE DIAGNOSIS 1. Carcinoma of the hepatic flexure 2. Atrial fibrillation OPERATIVE PROCEDURE - 07/16/2017 Ascending colectomy HISTORY This patient was found on colonoscopy to have a carcinoma of the colon around the hepatic flexure region. For this reason, a colectomy was recommended. LABORATORY DATA The pathology report on the removed specimen revealed that the lesion was an invasive adenocarcinoma and it was 4 x 3.5 x 0.8 cm in size. It was a poorly differentiated high-grade carcinoma. Tumor invaded through the muscular propria into the subserosal adipose tissue, but the serosa was not involved. All margins were uninvolved. 13 lymph nodes were identified and none were found to have metastatic disease. This was T4, N0 lesion. HOSPITAL COURSE The patient was admitted to the hospital on 07/16/2017, underwent an ascending colectomy. On the first postoperative day, the patient did well, had no nausea, no vomiting and was started on a clear liquid diet. On the second postoperative day, the patient was found to have rapid atrial fibrillation although he had no chest pain. He was seen by Dr. Jesus Bojorquez and Dr. Norman Constantino. He was placed on medications for his atrial fibrillation, but did not convert, but his rate was controlled. The patient's diet was continually advanced until he was on a regular diet and he was discharged from the hospital on postoperative day number five with no nausea or vomiting, ambulating and having bowel motions. He was discharged on the fifth postoperative day. He was scheduled to follow up with Dr. Jesus Bojorquez as an outpatient. He was instructed to follow up with me in two weeks time as well. He was instructed to do no driving for two weeks and do no heavy lifting over 10 pounds for six weeks and call me with any problems. MD ALE Jackson/ALEJANDRO /8:06 AM /12:36 PM
== END 2017-07-21 17:47 | disposition home health service (06) | DRG 330 ==
LOC: HSDI 07-16 11:26 → HCIS 07-16 18:36 → N07B 07-17 21:14 → HCIN 07-19 01:35
PROVIDERS: ADMIT Colon & Rectal Surgery; ATTEND Colon & Rectal Surgery
PROC: 0DBS0ZZ (ICD-10-PCS; 2017-07-16)
PROC: 07BC0ZX Excision of Pelvis Lymphatic, Open Approach, Diagnostic (ICD-10-PCS; 2017-07-16)
PROC: 0DBF0ZZ Excision of Right Large Intestine, Open Approach (ICD-10-PCS; principal; 2017-07-16 14:03)
DX: C18.3 Malignant neoplasm of hepatic flexure (principal); I97.89 Other postprocedural complications and disorders of the circulatory system, not elsewhere classified; I48.91 Unspecified atrial fibrillation; C67.9 Malignant neoplasm of bladder, unspecified; E11.9 Type 2 diabetes mellitus without complications; E03.9 Hypothyroidism, unspecified; E78.5 Hyperlipidemia, unspecified; G89.18 Other acute postprocedural pain; K21.9 Gastro-esophageal reflux disease without esophagitis; Z87.891 Personal history of nicotine dependence; Y83.8 Other surgical procedures as the cause of abnormal reaction of the patient, or of later complication, without mention of misadventure at the time of the procedure; Y92.239 Unspecified place in hospital as the place of occurrence of the external cause; I10 Essential (primary) hypertension
CPT/HCPCS: 36415; 71010; 74020; 76937; 80048; 80053; 81001; 82378; 82550; 82552; 82948; 83036; 83735; 84100; 84439; 84443; 84484; 85025; 85610; 85730; 86850; 86900; 86901; 87086; 88309; 93005; 93306; 94150; C9113; J0690; J1170; J1650; J1885; J1940; J2250; J2270; J2370; J2405; J2710; J2765; J3010; J3480; J7120

== ENCOUNTER → 2017-07-14 | Outpatient (CLI) | payer OTHER ==
[~2017-07-14] MED LIST: AMBI5TAB PO; APIX5TAB PO; ASPI-110 PO; CARD120C4 PO; CHOL5000 PO; HYDR-3516 PO; HYOS0.128 PO; LEVO50TA4 PO; METF1000 PO; MULT-65 PO; PROT40TA PO; TRAM50TA PO
[2017-07-14 10:47] LABS: AUTOMATED NEUTROPHIL # 6.4 TH/MM3 (1.8-7.7); BASOPHIL # 0.1 TH/MM3 (0-0.2); BASOPHIL % 0.9 % (0.0-2.0); EOSINOPHIL # 0.1 TH/MM3 (0-0.4); EOSINOPHIL % 1.2 % (0.0-4.0); HEMATOCRIT 38.6 % (39.0-51.0); HEMO FLAGS DIFF FINAL; LYMPH % 27.6 % (9.0-44.0); LYMPHOCYTE # 2.7 TH/MM3 (1.0-4.8); MEAN CELL VOLUME 82.9 FL (80.0-100.0); MEAN CORPUSCULAR HEMOGLOBIN 26.8 PG (27.0-34.0); MEAN CORPUSCULAR HGB CONC 32.3 % (32.0-36.0); MONO % 5.4 % (0.0-8.0); NEUT % 64.9 % (16.0-70.0); PLATELET COUNT 281 TH/MM3 (150-450); RED BLOOD COUNT 4.65 MIL/MM3 (4.50-5.90); RED CELL DISTRIBUTION WIDTH 15.1 % (11.6-17.2); WHITE BLOOD COUNT 9.9 TH/MM3 (4.0-11.0)
[2017-07-14 10:52] LABS: BACTERIA, URINE RARE /hpf; BLOOD, URINE SMALL (NEG); COMMENT (UR) CULTURE INDICATED; CULTURE IF INDICATED CULTURE INDICATED; GLUCOSE,URINE NEG (NEG); KETONE, URINE NEG (NEG); NITRITE,URINE NEG (NEG); URINE COLOR YELLOW (YELLW/STRAW)
[2017-07-14 10:56] LABS: APTT (PATIENT) 26.7 SEC (24.3-30.1); PROTHROMBIN TIME - PATIENT 10.9 SEC (9.8-11.6)
[2017-07-14 11:15] LABS: ANION GAP 9 MEQ/L (5-15); AST (GOT) 12 U/L (15-37); BICARBONATE 25.4 MEQ/L (21.0-32.0); BLOOD UREA NITROGEN 22 MG/DL (7-18); CHLORIDE 102 MEQ/L (98-107); GLOMERULAR FILTRATION RATE 69 ML/MIN (>89); GLUCOSE,FASTING 111 MG/DL (74-99); POTASSIUM 4.1 MEQ/L (3.5-5.1); SODIUM (NA) 136 MEQ/L (136-145)
[2017-07-14 11:20] LABS: ALKALINE PHOSPHATASE 54 U/L (45-117); ALT (GPT) 25 U/L (12-78); TOTAL BILIRUBIN ADULT 0.3 MG/DL (0.2-1.0)
--- NOTE | 2017-07-15 20:15 | EKG ---
Date Performed: 07/14/2017 Time Performed: 09:43:41 PTAGE: 76 years EKG: Sinus rhythm NORMAL ECG PREVIOUS TRACING : 05/14/1998 13.35 Compared to prior tracing no significant change DOCTOR: Terrell Real Interpretating Date/Time 07/15/2017 20:14:10
== END ==
LOC: CPRE 09:04
PROVIDERS: ATTEND Colon & Rectal Surgery
DX: Z01.812 Encounter for preprocedural laboratory examination (principal); Z01.810 Encounter for preprocedural cardiovascular examination; C18.3 Malignant neoplasm of hepatic flexure; R82.99 Other abnormal findings in urine; Z79.01 Long term (current) use of anticoagulants
CPT/HCPCS: 36415; 80053; 81001; 82378; 85025; 85610; 85730; 86850; 86900; 86901; 87086; 93005

== ENCOUNTER 2018-04-05 12:57 | Emergency (ER) | payer OTHER ==
[~2018-04-05] VITALS: Ht 162.6 cm; Wt 79.5 kg
[~2018-04-05 12:57] MED LIST changes: -ASPI-110 PO; -HYOS0.128 PO; +HYOS1TAB9 PO
[2018-04-05 13:09] VITALS: BP 153/101; PULSE 148; RESP 24; TEMP 98.3; O2SAT 97
[2018-04-05 13:18] VITALS: BP 183/91; PULSE 107; RESP 22; O2SAT 96
[2018-04-05] MEDS ORDERED: RED600TA PO (13:26)
[2018-04-05] MEDS ORDERED: DILTIAZEM HCL 30 MG TAB PO ONE (13:30)
[2018-04-05] MEDS ORDERED: SODIUM CHLORIDE 0.9% FLUSH 10 ML FLUSH IVF PRN (13:30)
[2018-04-05 13:32] VITALS: BP 172/83
--- NOTE | 2018-04-05 13:39 | PD ---
HPI Chief Complaint: Cardiac Complaint Time Seen by Provider: 13:17 Travel History International Travel<30 days: No Contact w/Intl Traveler<30days: No Traveled to known affect area: No History of Present Illness HPI This is a 77-year-old male who presents to the emergency department with chest tightness, intermittent, moderate severity keeping him up last night associated with intermittent racing of his heart. He has shortness of breath when the symptoms happen. He has been diagnosed with atrial fibrillation in the past but it was postsurgical and it was only one episode. He takes Eliquis but no longer takes diltiazem. He follows with Dr. Alicia. The patient went to his primary care doctor today and was noted to be in atrial fibrillation and was referred to the emergency department. The doctor reportedly spoke to Dr. Alicia and informed him the patient was coming here. PFSH Past Medical History Atrial Fibrillation: Yes Cancer: Yes (BLADDER, COLON) Cardiovascular Problems: Yes High Cholesterol: Yes Diabetes: Yes Patient Takes Glucophage: Yes Endocrine: Yes Gastrointestinal Disorders: Yes (COLON CA, GERD, AAA) Genitourinary: Yes (H/X BLADDER CA) Hepatitis: No Hiatal Hernia: No Immune Disorder: No Musculoskeletal: Yes (H/O MINISCUS TEAR) Neurologic: No Psychiatric: No Reproductive: No Respiratory: No Thyroid Disease: Yes (hypothyroid) Past Surgical History Abdominal Surgery: Yes (ascending colectomy jun 2017) AICD: No Cardiac Surgery: No Ear Surgery: No Endocrine Surgery: No Eye Surgery: Yes (LASIK, BILATERAL CATARACT) Genitourinary Surgery: Yes (BLADDER SCRAPPING 2016, FISTULA REPAIR 2009) Gynecologic Surgery: No Joint Replacement: No Oral Surgery: Yes (TONSILLECTOMY) Pacemaker: No Thoracic Surgery: No Other Surgery: Yes Social History Alcohol Use: No Tobacco Use: No Substance Use: No Allergies-Medications (Allergen,Severity, Reaction): Coded Allergies: No Known Allergies (Unverified Adverse Reaction, Unknown, 04/05/18) Reported Meds & Prescriptions Reported Meds & Active Scripts Active Eliquis (Apixaban) 5 Mg Tab 5 Mg PO BID Ambien (Zolpidem Tartrate) 5 Mg Tab 5 Mg PO HS PRN Reported Red Yeast Rice (Red Yeast Rice Extract) 600 Mg Tab 1,200 Mg PO BID Multi-Vitamin Daily (Multiple Vitamin) 1 Tab Tab 1 Tab PO DAILY Vitamin D3 (Cholecalciferol) 5,000 Unit Cap 5,000 Units PO DAILY Metformin (Metformin HCl) 1,000 Mg Tab 1,000 Mg PO DAILY With a meal Levothyroxine (Levothyroxine Sodium) 50 Mcg Tab 50 Mcg PO DAILY Review of Systems Except as stated in HPI: all other systems reviewed are Neg Physical Exam Narrative GENERAL:Well appearing, no acute distress SKIN: Focused skin assessment warm and dry. HEAD: Atraumatic. Normocephalic. EYES: Pupils equal and round. No injection or drainage. ENT: Moist mucous membranes NECK: Trachea midline. CARDIOVASCULAR: Regular rate and rhythm. No murmur appreciated. RESPIRATORY: Clear to auscultation. Breath sounds equal bilaterally. GASTROINTESTINAL: Abdomen soft, non-tender, nondistended. MUSCULOSKELETAL: No obvious deformities. NEUROLOGICAL: Awake and alert. No obvious cranial nerve deficits. Moving all extremities. PSYCHIATRIC: Appropriate mood and affect; insight and judgment normal. Data Data Last Documented VS Vital Signs Date Time Temp Pulse Resp B/P (MAP) Pulse Ox O2 Delivery O2 Flow Rate FiO2 04/05/18 13:32 172/83 (112) 04/05/18 13:18 107 22 96 Room Air 04/05/18 13:09 98.3 Orders Orders Electrocardiogram (04/05/18 13:18) Complete Blood Count With Diff (04/05/18 13:18) Comprehensive Metabolic Panel (04/05/18 13:18) Troponin I (04/05/18 13:18) Ecg Monitoring (04/05/18 13:18) Bilateral Bp Monitoring (04/05/18 13:18) Iv Access Insert/Monitor (04/05/18 13:18) Oximetry (04/05/18 13:18) Oxygen Administration (04/05/18 13:18) Sodium Chloride 0.9% Flush (Ns Flush) (04/05/18 13:30) Diltiazem (Cardizem) (04/05/18 13:30) Labs Laboratory Tests Test 04/05/18 13:36 White Blood Count 8.0 TH/MM3 Red Blood Count 4.84 MIL/MM3 Hemoglobin 14.6 GM/DL Hematocrit 40.9 % Mean Corpuscular Volume 84.5 FL Mean Corpuscular Hemoglobin 30.1 PG Mean Corpuscular Hemoglobin Concent 35.6 % Red Cell Distribution Width 14.5 % Platelet Count 195 TH/MM3 Mean Platelet Volume 7.9 FL Neutrophils (%) (Auto) 68.7 % Lymphocytes (%) (Auto) 23.4 % Monocytes (%) (Auto) 6.3 % Eosinophils (%) (Auto) 1.1 % Basophils (%) (Auto) 0.5 % Neutrophils # (Auto) 5.5 TH/MM3 Lymphocytes # (Auto) 1.9 TH/MM3 Monocytes # (Auto) 0.5 TH/MM3 Eosinophils # (Auto) 0.1 TH/MM3 Basophils # (Auto) 0.0 TH/MM3 CBC Comment DIFF FINAL Differential Comment Blood Urea Nitrogen 17 MG/DL Creatinine 1.06 MG/DL Random Glucose 121 MG/DL Total Protein 8.3 GM/DL Albumin 4.3 GM/DL Calcium Level 8.9 MG/DL Alkaline Phosphatase 51 U/L Aspartate Amino Transf (AST/SGOT) 29 U/L Alanine Aminotransferase (ALT/SGPT) 39 U/L Total Bilirubin 0.6 MG/DL Sodium Level 139 MEQ/L Potassium Level 4.2 MEQ/L Chloride Level 103 MEQ/L Carbon Dioxide Level 23.3 MEQ/L Anion Gap 13 MEQ/L Estimat Glomerular Filtration Rate 68 ML/MIN Troponin I LESS THAN 0.02 NG/ML MDM Medical Decision Making Medical Screen Exam Complete: Yes Emergency Medical Condition: Yes Interpretation(s) EKG: Sinus tachycardia with no ST changes No leukocytosis Electrolytes are reassuring Troponin is normal Differential Diagnosis Atrial fibrillation with RVR, acute coronary syndrome, anxiety Narrative Course This is a 77-year-old male who presents to the emergency department with palpitations and chest discomfort. When he arrived his heart rate was 148 but by the time I saw him his heart rate was in the 90s and he was in normal sinus rhythm. At his primary care doctor's office he was noted to be in atrial fibrillation with RVR which I suspect is the etiology of his symptoms. He has had atrial fibrillation in the past. He is on Eliquis but is not on any rate control medications currently. On arrival he was placed on a monitor and an IV was established. Labs were obtained which were reassuring. He was given a low dose of diltiazem. I did try to contact Dr. Alicia but was unable to. I think it safe for the patient to be discharged home on oral diltiazem and he can follow-up with Dr. Alicia in clinic. I asked him to return to the emergency department if he develops new symptoms. Diagnosis Primary Impression: Atrial fibrillation Qualified Codes: I48.0 - Paroxysmal atrial fibrillation Patient Instructions: General Instructions Additional Instructions: If you develop severe chest pain, shortness of breath, sweating, lightheadedness , dizziness or difficulty breathing return to the emergency department immediately. Follow up with Dr. Alicia in clinic. Start taking Diltiazem tomorrow morning. If for some reason you start to have symptoms this evening, take your dose early. Med/Other Pt SpecificInfo: Prescription(s) given Scripts Diltiazem CD 24 HR (Diltiazem CD 24 HR) 120 Mg Caper 120 MG PO DAILY, #30 CAP 0 Refills Prov: Estelle Mckinney MD 04/05/18 Disposition: 01 DISCHARGE HOME Condition: Stable Estelle Mckinney MD April 05, 2018 13:39
[2018-04-05 13:45] LABS: AUTOMATED NEUTROPHIL # 5.5 TH/MM3 (1.8-7.7); BASOPHIL % 0.5 % (0.0-2.0); EOSINOPHIL # 0.1 TH/MM3 (0-0.4); EOSINOPHIL % 1.1 % (0.0-4.0); HEMATOCRIT 40.9 % (39.0-51.0); HEMOGLOBIN 14.6 GM/DL (13.0-17.0); LYMPH % 23.4 % (9.0-44.0); LYMPHOCYTE # 1.9 TH/MM3 (1.0-4.8); MEAN CELL VOLUME 84.5 FL (80.0-100.0); MEAN CORPUSCULAR HEMOGLOBIN 30.1 PG (27.0-34.0); MEAN CORPUSCULAR HGB CONC 35.6 % (32.0-36.0); MEAN PLATELET VOLUME 7.9 FL (7.0-11.0); MONO % 6.3 % (0.0-8.0); MONOCYTE # 0.5 TH/MM3 (0-0.9); NEUT % 68.7 % (16.0-70.0); PLATELET COUNT 195 TH/MM3 (150-450); RED BLOOD COUNT 4.84 MIL/MM3 (4.50-5.90); RED CELL DISTRIBUTION WIDTH 14.5 % (11.6-17.2)
[2018-04-05 14:05] LABS: ALBUMIN 4.3 GM/DL (3.4-5.0); AST (GOT) 29 U/L (15-37); BICARBONATE 23.3 MEQ/L (21.0-32.0); BLOOD UREA NITROGEN 17 MG/DL (7-18); CALCIUM 8.9 MG/DL (8.5-10.1); CHLORIDE 103 MEQ/L (98-107); CREATININE 1.06 MG/DL (0.60-1.30); GLOMERULAR FILTRATION RATE 68 ML/MIN (>89); GLUCOSE,RANDOM 121 MG/DL (74-106); SODIUM (NA) 139 MEQ/L (136-145)
[2018-04-05 14:10] LABS: ALKALINE PHOSPHATASE 51 U/L (45-117); ALT (GPT) 39 U/L (12-78); TOTAL BILIRUBIN ADULT 0.6 MG/DL (0.2-1.0); TOTAL PROTEIN 8.3 GM/DL (6.4-8.2); TROPONIN I LESS THAN 0.02 NG/ML (0.02-0.05)
[2018-04-05] MEDS ORDERED: DILT120C50 PO (15:09)
[2018-04-05 15:27] VITALS: BP 148/74; PULSE 85; RESP 21; O2SAT 94
--- NOTE | 2018-04-06 09:46 | EKG ---
Date Performed: 04/05/2018 Time Performed: 13:23:50 PTAGE: 77 years EKG: SINUS TACHYCARDIA POSSIBLE LEFT ATRIAL ENLARGEMENT ABNORMAL RHYTHM ECG Compared to PREVIOUS TRACING , the patient is back in a Sinus rhythm . PREVIOUS TRACIN07/19/2017 06.09 DOCTOR: Rochelle Bazan Interpretating Date/Time 04/06/2018 09:45:53
== END 2018-04-05 15:35 | disposition home or self-care (01) ==
LOC: NEPC 12:57
DX: I48.0 Paroxysmal atrial fibrillation (principal); E03.9 Hypothyroidism, unspecified; E11.9 Type 2 diabetes mellitus without complications; Z79.01 Long term (current) use of anticoagulants; Z79.84 Long term (current) use of oral hypoglycemic drugs
CPT/HCPCS: 80053; 84484; 85025; 93005

== ENCOUNTER 2018-04-12 13:04 | Inpatient (IN) | payer OTHER, MEDICARE ==
[2018-04-12] VITALS (11 sets, daily range): BP systolic 138–191; BP diastolic 63–93; PULSE 77–97; RESP 18–35; TEMP 97.6–98.5; O2SAT 92–100
[~2018-04-12] VITALS: Ht 162.6 cm; Wt 78.6 kg
[~2018-04-12 13:04] MED LIST changes: -CARD120C4 PO; +DILT120C50 PO; -HYDR-3516 PO; -HYOS1TAB9 PO; -PROT40TA PO; +RED600TA PO; -TRAM50TA PO
[2018-04-12] MEDS ORDERED: SODIUM CHLORIDE 0.9% FLUSH 10 ML FLUSH IVF PRN (13:30)
[2018-04-12] MEDS ORDERED: CARD240C6 PO (13:31)
[2018-04-12] MEDS ORDERED: MULTTAB67 PO (13:31)
--- NOTE | 2018-04-12 13:31 | PD ---
HPI Chief Complaint: Respiratory Symptoms Time Seen by Provider: 13:13 Travel History International Travel<30 days: No Contact w/Intl Traveler<30days: No Traveled to known affect area: No History of Present Illness HPI 77-year-old male presents to the emergency department for shortness of breath that started 1 week ago and has been worsening. Patient recently was seen for atrial fibrillation. He was started on Cardizem. He was already on Eliquis and was instructed to continue this. The patient denies any chest pain. He reports low-grade fevers. He denies any abdominal pain. He has had associated nausea, no vomiting, diarrhea. Patient denies any history of CHF, COPD, asthma. Patient was to see Dr. Alicia today, but his shortness of breath worsened so he came to the emergency department. Patient is tachypneic and using accessory muscles on exam. He did have a recent trip the beginning of [place] his brother who was sick. His states that he has been stressed out as his brother had . Severity: moderate-severe. PFSH Past Medical History Hx Anticoagulant Therapy: Yes Atrial Fibrillation: Yes Cancer: Yes (BLADDER, COLON) Cardiovascular Problems: Yes (A-FIB ) High Cholesterol: Yes Diabetes: Yes Patient Takes Glucophage: Yes Endocrine: Yes Gastrointestinal Disorders: Yes (COLON CA, GERD, AAA) Genitourinary: Yes (H/X BLADDER CA) Hepatitis: No Hiatal Hernia: No Immune Disorder: No Musculoskeletal: Yes (H/O MINISCUS TEAR) Neurologic: No Psychiatric: No Reproductive: No Respiratory: No Thyroid Disease: Yes (hypothyroid) Past Surgical History Abdominal Surgery: Yes (ascending colectomy jun 2017) AICD: No Cardiac Surgery: No Ear Surgery: No Endocrine Surgery: No Eye Surgery: Yes (LASIK, BILATERAL CATARACT) Genitourinary Surgery: Yes (BLADDER SCRAPPING 2016, FISTULA REPAIR 2009) Gynecologic Surgery: No Joint Replacement: No Oral Surgery: Yes (TONSILLECTOMY) Pacemaker: No Thoracic Surgery: No Other Surgery: Yes Social History Alcohol Use: No Tobacco Use: No Substance Use: No Allergies-Medications (Allergen,Severity, Reaction): Coded Allergies: No Known Allergies (Unverified Allergy, Unknown, 04/12/18) Reported Meds & Prescriptions Reported Meds & Active Scripts Active Eliquis (Apixaban) 5 Mg Tab 5 Mg PO BID Ambien (Zolpidem Tartrate) 5 Mg Tab 5 Mg PO HS PRN Reported Cardizem CD 24 HR (Diltiazem CD 24 HR) 240 Mg Caper 240 Mg PO DAILY Multiple Vitamin 1 Tab 1 Tab PO DAILY Red Yeast Rice (Red Yeast Rice Extract) 600 Mg Tab 1,200 Mg PO BID Multi-Vitamin Daily (Multiple Vitamin) 1 Tab Tab 1 Tab PO DAILY Vitamin D3 (Cholecalciferol) 5,000 Unit Cap 5,000 Units PO DAILY Metformin (Metformin HCl) 1,000 Mg Tab 1,000 Mg PO DAILY With a meal Levothyroxine (Levothyroxine Sodium) 50 Mcg Tab 50 Mcg PO DAILY Review of Systems Except as stated in HPI: all other systems reviewed are Neg Physical Exam Narrative GENERAL: Well-nourished, well-developed male patient, afebrile. SKIN: Focused skin assessment warm/dry. HEAD: Normocephalic. Atraumatic. EYES: No scleral icterus. No injection or drainage. NECK: Supple, trachea midline. No JVD or lymphadenopathy. CARDIOVASCULAR: Regular rate and rhythm without murmurs, gallops, or rubs. RESPIRATORY: Breath sounds equal bilaterally. Positive accessory muscle use. Patient is tachypneic with respiratory rate in the 30s. He speaks in short sentences. Expiratory wheezes noted. GASTROINTESTINAL: Abdomen soft, non-tender, nondistended. MUSCULOSKELETAL: No cyanosis, or edema. BACK: Nontender without obvious deformity. No CVA tenderness. Data Data Last Documented VS Vital Signs Date Time Temp Pulse Resp B/P (MAP) Pulse Ox O2 Delivery O2 Flow Rate FiO2 04/12/18 15:30 89 18 166/80 (108) 94 Nasal Cannula 3.00 04/12/18 13:18 97.6 Orders Orders Complete Blood Count With Diff (04/12/18 13:24) Basic Metabolic Panel (Bmp) (04/12/18 13:24) B-Type Natriuretic Peptide (04/12/18 13:24) Act Partial Throm Time (Ptt) (04/12/18 13:24) Prothrombin Time / Inr (Pt) (04/12/18 13:24) Magnesium (Mg) (04/12/18 13:24) Ckmb (Isoenzyme) Profile (04/12/18 13:24) Troponin I (04/12/18 13:24) Blood Culture (04/12/18 13:24) Iv Access Insert/Monitor (04/12/18 13:24) Electrocardiogram (04/12/18 13:24) Ecg Monitoring (04/12/18 13:24) Oximetry (04/12/18 13:24) Oxygen Administration (04/12/18 13:24) Chest, Single Ap (04/12/18 13:24) Sodium Chloride 0.9% Flush (Ns Flush) (04/12/18 13:30) Albuterol-Ipratropium Neb (Duoneb Neb) (04/12/18 13:30) Lactic Acid Sepsis Protocol (04/12/18 13:31) Methylprednisolone So Succ Inj (Solumedr (04/12/18 14:15) Lorazepam Inj (Ativan Inj) (04/12/18 14:30) CKMB (04/12/18 13:39) CKMB% (04/12/18 13:39) Furosemide Inj (Lasix Inj) (04/12/18 15:00) Admit Order (Ed Use Only) (04/12/18 15:31) Labs Laboratory Tests Test 04/12/18 13:39 White Blood Count 9.2 TH/MM3 Red Blood Count 4.61 MIL/MM3 Hemoglobin 13.4 GM/DL Hematocrit 39.1 % Mean Corpuscular Volume 84.8 FL Mean Corpuscular Hemoglobin 29.2 PG Mean Corpuscular Hemoglobin Concent 34.4 % Red Cell Distribution Width 14.3 % Platelet Count 221 TH/MM3 Mean Platelet Volume 9.0 FL Neutrophils (%) (Auto) 81.9 % Lymphocytes (%) (Auto) 10.5 % Monocytes (%) (Auto) 6.6 % Eosinophils (%) (Auto) 0.6 % Basophils (%) (Auto) 0.4 % Neutrophils # (Auto) 7.5 TH/MM3 Lymphocytes # (Auto) 1.0 TH/MM3 Monocytes # (Auto) 0.6 TH/MM3 Eosinophils # (Auto) 0.1 TH/MM3 Basophils # (Auto) 0.0 TH/MM3 CBC Comment DIFF FINAL Differential Comment Prothrombin Time 11.8 SEC Prothromb Time International Ratio 1.2 RATIO Activated Partial Thromboplast Time 32.1 SEC Blood Urea Nitrogen 18 MG/DL Creatinine 0.85 MG/DL Random Glucose 134 MG/DL Calcium Level 9.0 MG/DL Magnesium Level 2.0 MG/DL Sodium Level 127 MEQ/L Potassium Level 4.3 MEQ/L Chloride Level 93 MEQ/L Carbon Dioxide Level 22.2 MEQ/L Anion Gap 12 MEQ/L Estimat Glomerular Filtration Rate 88 ML/MIN Lactic Acid Level 2.1 mmol/L Total Creatine Kinase 287 U/L Creatine Kinase MB 5.0 NG/ML Troponin I LESS THAN 0.02 NG/ML B-Type Natriuretic Peptide 68 PG/ML MDM Medical Decision Making Medical Screen Exam Complete: Yes Emergency Medical Condition: Yes Medical Record Reviewed: Yes Interpretation(s) Last Impressions Chest X-Ray 04/12/18 1324 Signed Impressions: Service Date/Time: Thursday, April 12, 2018 14:00 - CONCLUSION: 1. Developing interstitial prominence suggesting some degree of vascular congestion or volume overload. 2. In addition, bibasilar airspace disease which could represent atelectasis or developing infiltrate. Abdi Tapia MD Differential Diagnosis Pneumonia versus CHF versus COPD versus PE versus ACS versus respiratory distress Narrative Course 77-year-old male presents to the emergency department for worsening shortness of breath over the past week. He is tachypneic and using accessory muscles on exam. He does have wheezing noted. EKG shows sinus rhythm with PVCs, heart rate 90. Oxygen saturation is 91-93% on 3 L O2 nasal cannula. CBC, BMP, BNP, magnesium, CK, troponin, lactic acid, blood cultures 2, PTT, PT/INR, chest x- ray ordered and pending. Patient is given DuoNeb 3, solumedrol 125 mg IV. CBC shows no acute abnormality. BMP shows hyponatremia 127, hyperglycemia 134. BNP is 68. Magnesium is 2.0. CK is 287. Troponin is less than 0.02. Lactic acid is 2.1. Coags show no acute abnormality. Chest x-ray shows developing interstitial prominence suggesting some degree of vascular congestion or volume overload, bibasilar airspace disease which could represent atelectasis or developing infiltrate. Patient is given Lasix 40 mg IV. He has no evidence of pneumonia at this time. Patient will be admitted for further evaluation. Diagnosis Primary Impression: CHF (congestive heart failure) Qualified Codes: I50.9 - Heart failure, unspecified Additional Impression: Hypoxia Admitting Information Admitting Physician Requests: Admit Teresa Prince April 12, 2018 13:31
[2018-04-12] MEDS: RESP: ALBUTEROL 2.5 MG/IPRATROPIUM 0.5 MG NEB (SCH) INH (13:36)
[2018-04-12] MEDS ORDERED: methylPREDNISolone SOD SUCC 125 MG/2 ML VIAL IV PUSH ONE (14:15)
[2018-04-12 14:20] LABS: AUTOMATED NEUTROPHIL # 7.5 TH/MM3 (1.8-7.7); BASOPHIL % 0.4 % (0.0-2.0); EOSINOPHIL # 0.1 TH/MM3 (0-0.4); EOSINOPHIL % 0.6 % (0.0-4.0); HEMATOCRIT 39.1 % (39.0-51.0); HEMOGLOBIN 13.4 GM/DL (13.0-17.0); LYMPH % 10.5 % (9.0-44.0); MEAN CELL VOLUME 84.8 FL (80.0-100.0); MEAN CORPUSCULAR HEMOGLOBIN 29.2 PG (27.0-34.0); MEAN CORPUSCULAR HGB CONC 34.4 % (32.0-36.0); MONO % 6.6 % (0.0-8.0); MONOCYTE # 0.6 TH/MM3 (0-0.9); NEUT % 81.9 % (16.0-70.0); PLATELET COUNT 221 TH/MM3 (150-450); RED BLOOD COUNT 4.61 MIL/MM3 (4.50-5.90); RED CELL DISTRIBUTION WIDTH 14.3 % (11.6-17.2); WHITE BLOOD COUNT 9.2 TH/MM3 (4.0-11.0)
[2018-04-12 14:29] LABS: INTERNATIONAL NORMALIZED RATIO 1.2 RATIO; PROTHROMBIN TIME - PATIENT 11.8 SEC (9.8-11.6)
[2018-04-12] MEDS ORDERED: LORazepam 2 MG/ML VIAL IV PUSH ONE (14:30)
[2018-04-12 14:49] LABS: BICARBONATE 22.2 MEQ/L (21.0-32.0); BLOOD UREA NITROGEN 18 MG/DL (7-18); CHLORIDE 93 MEQ/L (98-107); CREATININE 0.85 MG/DL (0.60-1.30); GLOMERULAR FILTRATION RATE 88 ML/MIN (>89); GLUCOSE,RANDOM 134 MG/DL (74-106); SODIUM (NA) 127 MEQ/L (136-145); TROPONIN I LESS THAN 0.02 NG/ML (0.02-0.05)
[2018-04-12 14:50] LABS: LACTIC ACID SEPSIS PROTOCOL 2.1 mmol/L (0.4-2.0)
--- NOTE | 2018-04-12 14:55 | RADRPT ---
EXAM DATE/TIME: 04/12/2018 14:00 [facility] COMPARISON: CHEST SINGLE AP, July 19, 2017, 4:37. INDICATIONS : Shortness of breath. MEDICAL HISTORY : Diabetes mellitus type II. Carcinoma, colon. Carcinoma, bladder SURGICAL HISTORY : Abdominal surgery ENCOUNTER: Initial ACUITY: 1 day PAIN SCORE: 0/10 LOCATION: Bilateral chest FINDINGS: A single view of the chest demonstrates increased interstitial markings in both hemithoraces with con comitant air space disease in the bases. Heart size is normal. Osseous structures are intact. CONCLUSION: 1. Developing interstitial prominence suggesting some degree of vascular congestion or volume overloa d. 2. In addition, bibasilar airspace disease which could represent atelectasis or developing infiltrate . Abdi Tapia MD on April 12, 2018 at 14:52 Board Certified Radiologist. This report was verified electronically.
[2018-04-12] MEDS ORDERED: FUROSEMIDE 40 MG/4 ML VIAL IV PUSH ONE (15:00)
--- NOTE | 2018-04-12 15:08 | PD ---
Data Data Last Documented VS Vital Signs Date Time Temp Pulse Resp B/P (MAP) Pulse Ox O2 Delivery O2 Flow Rate FiO2 04/12/18 13:30 92 Nasal Cannula 3.00 04/12/18 13:26 93 35 04/12/18:18 97.6 Orders Orders Complete Blood Count With Diff (04/12/18 13:24) Basic Metabolic Panel (Bmp) (04/12/18 13:24) B-Type Natriuretic Peptide (04/12/18 13:24) Act Partial Throm Time (Ptt) (04/12/18 13:24) Prothrombin Time / Inr (Pt) (04/12/18 13:24) Magnesium (Mg) (04/12/18 13:24) Ckmb (Isoenzyme) Profile (04/12/18 13:24) Troponin I (04/12/18 13:24) Blood Culture (04/12/18 13:24) Iv Access Insert/Monitor (04/12/18 13:24) Electrocardiogram (04/12/18 13:24) Ecg Monitoring (04/12/18 13:24) Oximetry (04/12/18 13:24) Oxygen Administration (04/12/18 13:24) Chest, Single Ap (04/12/18 13:24) Sodium Chloride 0.9% Flush (Ns Flush) (04/12/18 13:30) Albuterol-Ipratropium Neb (Duoneb Neb) (04/12/18 13:30) Lactic Acid Sepsis Protocol (04/12/18 13:31) Methylprednisolone So Succ Inj (Solumedr (04/12/18 14:15) Lorazepam Inj (Ativan Inj) (04/12/18 14:30) CKMB (04/12/18 13:39) CKMB% (04/12/18 13:39) Furosemide Inj (Lasix Inj) (04/12/18 15:00) Labs Laboratory Tests Test 04/12/18 13:39 White Blood Count 9.2 TH/MM3 Red Blood Count 4.61 MIL/MM3 Hemoglobin 13.4 GM/DL Hematocrit 39.1 % Mean Corpuscular Volume 84.8 FL Mean Corpuscular Hemoglobin 29.2 PG Mean Corpuscular Hemoglobin Concent 34.4 % Red Cell Distribution Width 14.3 % Platelet Count 221 TH/MM3 Mean Platelet Volume 9.0 FL Neutrophils (%) (Auto) 81.9 % Lymphocytes (%) (Auto) 10.5 % Monocytes (%) (Auto) 6.6 % Eosinophils (%) (Auto) 0.6 % Basophils (%) (Auto) 0.4 % Neutrophils # (Auto) 7.5 TH/MM3 Lymphocytes # (Auto) 1.0 TH/MM3 Monocytes # (Auto) 0.6 TH/MM3 Eosinophils # (Auto) 0.1 TH/MM3 Basophils # (Auto) 0.0 TH/MM3 CBC Comment DIFF FINAL Differential Comment Prothrombin Time 11.8 SEC Prothromb Time International Ratio 1.2 RATIO Activated Partial Thromboplast Time 32.1 SEC Blood Urea Nitrogen 18 MG/DL Creatinine 0.85 MG/DL Random Glucose 134 MG/DL Calcium Level 9.0 MG/DL Magnesium Level 2.0 MG/DL Sodium Level 127 MEQ/L Potassium Level 4.3 MEQ/L Chloride Level 93 MEQ/L Carbon Dioxide Level 22.2 MEQ/L Anion Gap 12 MEQ/L Estimat Glomerular Filtration Rate 88 ML/MIN Lactic Acid Level 2.1 mmol/L Total Creatine Kinase 287 U/L Troponin I LESS THAN 0.02 NG/ML MDM Supervised Visit with JACK: Yes Narrative Course I, Dr. Pepe, have reviewed the advance practice practitioner's documentation and am in agreement, met with the patient face to face, made the diagnosis, and the medical decision making was done by me. *My assessment and Findings: Patient presentation suggest pulmonary edema causing hypoxia. He has an abnormal chest x-ray and no infective symptoms. Cardiac enzymes are negative. BNP still pending but will be reviewed. He requires admission. Infection is also in the differential although he has no fever or cough etc. Orville Pepe MD April 12, 2018 15:08
--- NOTE | 2018-04-12 16:18 | HHI.HP ---
HPI Service [facility] Primary Care Physician Chuy Foley M.D. Admission Diagnosis new onset CHF, hypoxia Diagnoses: (1) Community acquired pneumonia Diagnosis: Principal (2) SOB (shortness of breath) (3) Hypoxia Travel History International Travel<30 Days: No Contact w/Intl Traveler <30 Da: No Traveled to Known Affected Are: No Sepsis Criteria SIRS Criteria (2 or more): RR > 20 or PaCO2 < 32, WBC > 91302, < 4000 or > 10 % bands Sepsis Criteria (SIRS+source): Infect source susp/known History of Present Illness 77-year-old with PMH significant for DM, bladder and colon CA, hypothyroidism, and a. fib anticoagulated on Eliquis who presents to the ER with worsening SOB. Patient reports that SOB began last Thursday and progressively got worse. Patient was recently seen in the ER on 04/05 after he developed heart palpitations. He was treated with low dose Diltiazem and discharged home to follow-up with his post tensioning ironworker Dr. Alicia. SOB has gotten worse for the past several days, had productive cough last week with fevers per at bedside. Patient was in to see his PCP recently and placed on Doxycycline and a cough syrup. He stop taking cough syrup due to codeine, he did not like the way it was making him feel. He has continued to take the antibiotic, however his SOB continues. Now his cough is non-productive. SOB is present even without exertion. He had an appointment to see today, called post tensioning ironworker to let him know about his respiratory status, but he was instructed to come to ER. Some nausea last week but no vomiting, poor appetite. He denies any chest pain, dizziness, abdominal or calf pain. Denies dysuria, constipation or diarrhea. also states that patient recently traveled to see brother who recently passed. [place] and returned April 03. Past Family Social History Past Medical History DM Bladder and colon CA in June 2017 a. fib anticoagulated on Eliquis Hypothyroidism Past Surgical History Colectomy 2017 due to CA Bladder surgery 2017 due to CA Tonsillectomy Left knee surgery Reported Medications Reported Meds & Active Scripts Active Eliquis (Apixaban) 5 Mg Tab 5 Mg PO BID Ambien (Zolpidem Tartrate) 5 Mg Tab 5 Mg PO HS PRN Reported Cardizem CD 24 HR (Diltiazem CD 24 HR) 240 Mg Caper 240 Mg PO DAILY Multiple Vitamin 1 Tab 1 Tab PO DAILY Red Yeast Rice (Red Yeast Rice Extract) 600 Mg Tab 1,200 Mg PO BID Multi-Vitamin Daily (Multiple Vitamin) 1 Tab Tab 1 Tab PO DAILY Vitamin D3 (Cholecalciferol) 5,000 Unit Cap 5,000 Units PO DAILY Metformin (Metformin HCl) 1,000 Mg Tab 1,000 Mg PO DAILY With a meal Levothyroxine (Levothyroxine Sodium) 50 Mcg Tab 50 Mcg PO DAILY Allergies: Coded Allergies: No Known Allergies (Unverified Allergy, Unknown, 04/12/18) Family History Mother: DM, CA of larynx Sister: lung CA Sister: aneurysm of brain lung CA Brother: lung disease Social History Tobacco: quit 10-12 year ago Alcohol: 1 glass of wine occasionally Illicit drug use: denies Physical Exam Vital Signs Vital Signs Date Time Temp Pulse Resp B/P (MAP) Pulse Ox O2 Delivery O2 Flow Rate FiO2 04/12/18 13:30 92 Nasal Cannula 3.00 04/12/18 13:26 92 Nasal Cannula 3.00 04/12/18 13:26 93 35 93 Nasal Cannula 3.00 04/12/18 13:18 87 35 Nasal Cannula 2.00 04/12/18 13:18 97.6 87 35 150/81 (104) 92 Nasal Cannula 04/12/18 13:14 90 35 150/81 (104) 92 Physical Exam GENERAL: This is a well-nourished, well-developed patient, in mild respiratory distress. SKIN: No rashes, ecchymoses or lesions. Cool and dry. HEAD: Atraumatic. Normocephalic. No temporal or scalp tenderness. EYES: Pupils equal round and reactive. Extraocular motions intact. No scleral icterus. No injection or drainage. ENT: Nose without bleeding, purulent drainage. Throat without erythema or exudate. Uvula midline. Airway patent. NECK: Trachea midline. No JVD or lymphadenopathy. Supple, nontender. CARDIOVASCULAR: Irregular rate and rhythm without murmurs, gallops, or rubs. RESPIRATORY: Breath sounds diminished throughout with faint rales on bases. Mild respiratory distress on NC. GASTROINTESTINAL: Abdomen soft, non-tender, round. No palpable masses. No guarding. +bowel sounds in all quadrants. MUSCULOSKELETAL: Extremities without clubbing, cyanosis, or edema. No joint tenderness, effusion, or edema noted. No calf tenderness. NEUROLOGICAL: Awake and alert, oriented x3. Cranial nerves II through XII intact. Motor and sensory grossly within normal limits. Five out of 5 muscle strength in all muscle groups. Normal speech. Laboratory Laboratory Tests Test 04/12/18 13:39 White Blood Count 9.2 Red Blood Count 4.61 Hemoglobin 13.4 Hematocrit 39.1 Mean Corpuscular Volume 84.8 Mean Corpuscular Hemoglobin 29.2 Mean Corpuscular Hemoglobin Concent 34.4 Red Cell Distribution Width 14.3 Platelet Count 221 Mean Platelet Volume 9.0 Neutrophils (%) (Auto) 81.9 Lymphocytes (%) (Auto) 10.5 Monocytes (%) (Auto) 6.6 Eosinophils (%) (Auto) 0.6 Basophils (%) (Auto) 0.4 Neutrophils # (Auto) 7.5 Lymphocytes # (Auto) 1.0 Monocytes # (Auto) 0.6 Eosinophils # (Auto) 0.1 Basophils # (Auto) 0.0 CBC Comment DIFF FINAL Differential Comment Prothrombin Time 11.8 Prothromb Time International Ratio 1.2 Activated Partial Thromboplast Time 32.1 Blood Urea Nitrogen 18 Creatinine 0.85 Random Glucose 134 Calcium Level 9.0 Magnesium Level 2.0 Sodium Level 127 Potassium Level 4.3 Chloride Level 93 Carbon Dioxide Level 22.2 Anion Gap 12 Estimat Glomerular Filtration Rate 88 Lactic Acid Level 2.1 Total Creatine Kinase 287 Creatine Kinase MB 5.0 Troponin I LESS THAN 0.02 B-Type Natriuretic Peptide 68 Date/Time Source Procedure Growth Status 04/12/18 13:39 Blood Peripheral Aerobic Blood Culture Pending Received 04/12/18 13:39 Blood Peripheral Anaerobic Blood Culture Pending Received Result Diagram: 04/12/18 1339 04/12/18 1339 Imaging Last Impressions Chest X-Ray 04/12/18 1324 Signed Impressions: Service Date/Time: Thursday, April 12, 2018 14:00 - CONCLUSION: 1. Developing interstitial prominence suggesting some degree of vascular congestion or volume overload. 2. In addition, bibasilar airspace disease which could represent atelectasis or developing infiltrate. Abdi Tapia MD [place] VTE Risk Assessment Caprini VTE Risk Assessment: Mod/High Risk (score >= 2) Caprini Risk Assessment Model Point Value = 1 Point Value = 2 Point Value = 3 Point Value = 5 Age 41-60 Minor surgery BMI > 25 kg/m2 Swollen legs Varicose veins or History of unexplained or recurrent spontaneous Oral contraceptives or hormone replacement Sepsis (< 1 month) Serious lung disease, including pneumonia (< 1 month) Abnormal pulmonary function Acute myocardial infarction Congestive heart failure (< 1 month) History of inflammatory bowel disease Medical patient at bed rest Age 61-74 Arthroscopic surgery Major open surgery (> 45 min) Laparoscopic surgery (> 45 min) Malignancy Confined to bed (> 72 hours) Immobilizing plaster cast Central venous access Age >= 75 History of VTE Family history of VTE Factor V Leiden Prothrombin [id number] Lupus anticoagulant Anticardiolipin antibodies Elevated serum homocysteine Heparin-induced thrombocytopenia Other congenital or acquired thrombophilia Stroke (< 1 month) Elective arthroplasty Hip, pelvis, or leg fracture Acute spinal cord injury (< 1 month) Prophylaxis Regimen Total Risk Factor Score Risk Level Prophylaxis Regimen 0-1 Low Early ambulation 2 Moderate Order ONE of the following: *Sequential Compression Device (SCD) *Heparin 5000 units SQ BID 3-4 Higher Order ONE of the following medications: *Heparin 5000 units SQ TID *Enoxaparin/Lovenox 40 mg SQ daily (WT < 150 kg, CrCl > 30 mL/min) *Enoxaparin/Lovenox 30 mg SQ daily (WT < 150 kg, CrCl > 10-29 mL/min) *Enoxaparin/Lovenox 30 mg SQ BID (WT < 150 kg, CrCl > 30 mL/min) AND/OR *Sequential Compression Device (SCD) 5 or more Highest Order ONE of the following medications: *Heparin 5000 units SQ TID (Preferred with Epidurals) *Enoxaparin/Lovenox 40 mg SQ daily (WT < 150 kg, CrCl > 30 mL/min) *Enoxaparin/Lovenox 30 mg SQ daily (WT < 150 kg, CrCl > 10-29 mL/min) *Enoxaparin/Lovenox 30 mg SQ BID (WT < 150 kg, CrCl > 30 mL/min) AND *Sequential Compression Device (SCD) Assessment and Plan Assessment and Plan 77-year-old with PMH significant for DM, bladder and colon CA, hypothyroidism, and a. fib anticoagulated on Eliquis who presents to the ER with worsening SOB. Patient reports that SOB began last Thursday and progressively got worse. Suspected Community acquired PNA (meets SEPSIS criteria: tachypnea, bands >10%) - CBC with no leukocytosis but neutrophils 81.9, +fevers last week, increased SOB, failed outpatient treatment - Lactic acid 2.1, recheck in 6hrs - Patient received Lasix 40mg and Solumederol 125mg IV in the ER - Admit to medical floor with tele - BC X2 obtained and pending - Chest x-ray reviewed, developing interstitial prominence suggesting some degree of vascular congestion or fluid overload. There is also bibasilar airspace disease which could represent atelectasis or developing infiltrate per radiologist. - BNP 68, patient does not appear fluid overloaded. Troponin negative, CK-MD 5.0, no chest pain. EKG with SR occasional PVC. - Start Azithromycin and Ceftriaxone IV - Duonebs Q4hr, PRN nebs Q2 hrs - Follow CBC and monitor clinically Hypoxia-secondary to above -Tachypnea RR 35 on admission - NC to keep O2 sats >92% - Blood gas reviewed, pH 7.47, pCO2 28, HCO3 20 - Nebs scheduled and PRN - IS - D-dimer pending - Check 2-D echo A.fib - Continue anticoagulation on Eliquis 5mg BID - Continue Ditiazem CD 240mg daily - Monitor HR on tele Hyponatremia - NA 127, patient with poor PO intake, will hold off on fluids secondary to concern for vascular congestion. - Await echo, recheck labs in the AM. DM-continue home dose Metformin 1,000mg BID - 1800 ADA diet Colon/blader CA - Stable can follow up as outpatient DVT prophylaxis-Eliquis and SCD's Discussed Condition With Discussed with , patient, and at bedside. Physician Certification 2 Midnight Certification Type: Admission for Inpatient Services Order for Inpatient Services The services are ordered in accordance with Medicare regulations or non- Medicare payer requirements, as applicable. In the case of services not specified as inpatient-only, they are appropriately provided as inpatient services in accordance with the 2-midnight benchmark. Estimated LOS (days): 3 days is the estimated time the patient will need to remain in the hospital, assuming treatment plan goals are met and no additional complications. Post-Hospital Plan: Kiko Nam April 12, 2018 16:18
[2018-04-12] MEDS ORDERED: MAGNESIUM HYDROXIDE SUSP 30 ML CUP PO PRN (16:30)
[2018-04-12] MEDS ORDERED: NALOXONE HCL 0.4 MG/ML AMP IV PUSH PRN (16:30)
[2018-04-12] MEDS ORDERED: SENNOSIDES 8.6 MG TAB PO PRN (16:30)
[2018-04-12] MEDS ORDERED: LACTULOSE SYRUP 20 GM/30 ML CUP PO PRN (16:30)
[2018-04-12] MEDS ORDERED: BISACODYL 10 MG SUPP RECTAL PRN (16:30)
[2018-04-12] MEDS ORDERED: ACETAMINOPHEN 325 MG TAB PO PRN (16:30)
[2018-04-12] MEDS: AZITHROMYCIN INJ 500 MG in SODIUM CHLOR 0.9% 250 ML INJ 250 ML IV SCH (17:31)
[2018-04-12] MEDS: cefTRIAXone INJ 1,000 MG in SODIUM CHLORIDE 0.9% INJ 100 ML IV SCH (17:34)
[2018-04-12] MEDS ORDERED: cloNIDine HCL 0.1 MG TAB PO PRN (17:45)
[2018-04-12] MEDS: RESP: ALBUTEROL 2.5 MG/IPRATROPIUM 0.5 MG NEB (SCH) NEB ×2 (19:20→22:47)
[2018-04-12] MEDS ORDERED: CHLORHEXIDINE GLUCONATE 2 % 1 PACK (2 CLOTHS)(extra cloths) TOPICAL PRN (20:45)
[2018-04-12] MEDS: DOCUSATE SODIUM 50 MG/SENNA 8.6 MG TAB PO SCH (21:00)
[2018-04-12] MEDS: APIXABAN 5 MG TABLET PO SCH (21:25)
[2018-04-13] VITALS (20 sets, daily range): BP systolic 100–163; BP diastolic 59–83; PULSE 77–141; RESP 15–31; TEMP 97–98.6; O2SAT 91–95
[2018-04-13] MEDS: RESP: ALBUTEROL 2.5 MG/IPRATROPIUM 0.5 MG NEB (SCH) NEB ×6 (03:07→23:08)
[2018-04-13] MEDS: CHLORHEXIDINE GLUCONATE 2 % 1 PACK (2 CLOTHS)(taper/protocol) TOPICAL SCH (04:00)
[2018-04-13] MEDS: LEVOTHYROXINE SODIUM 50 MCG TAB PO SCH (05:29)
[2018-04-13 07:48] LABS: ALBUMIN 3.8 GM/DL (3.4-5.0); ALT (GPT) 54 U/L (12-78); AST (GOT) 36 U/L (15-37); BICARBONATE 23.8 MEQ/L (21.0-32.0); BLOOD UREA NITROGEN 15 MG/DL (7-18); CALCIUM 8.7 MG/DL (8.5-10.1); CHLORIDE 92 MEQ/L (98-107); CREATININE 0.86 MG/DL (0.60-1.30); GLOMERULAR FILTRATION RATE 87 ML/MIN (>89); GLUCOSE,RANDOM 208 MG/DL (74-106); SODIUM (NA) 130 MEQ/L (136-145)
[2018-04-13 07:51] LABS: ALKALINE PHOSPHATASE 66 U/L (45-117); TOTAL BILIRUBIN ADULT 0.6 MG/DL (0.2-1.0); TOTAL PROTEIN 7.9 GM/DL (6.4-8.2)
[2018-04-13] MEDS: APIXABAN 5 MG TABLET PO SCH ×2 (09:00→19:52)
[2018-04-13] MEDS: metFORMIN HCL 500 MG TAB PO SCH (09:00)
[2018-04-13] MEDS: DOCUSATE SODIUM 50 MG/SENNA 8.6 MG TAB PO SCH ×2 (09:00→19:51)
[2018-04-13] MEDS: CHOLECALCIFEROL (VIT D3) 5000 UNIT CAP PO SCH (09:00)
[2018-04-13] MEDS ORDERED: DILTIAZEM-CD 240 MG CAP ER PO SCH (09:00)
[2018-04-13] MEDS: MULTIVITAMIN TAB PO SCH (09:00)
[2018-04-13] MEDS ORDERED: METOPROLOL TARTRATE 5 MG/5 ML VIAL ONE (10:11)
--- NOTE | 2018-04-13 12:52 | HHI.PR ---
Subjective Remarks seen with family at bedside appears anxious- telemetry- a fib rate variable 90-130s anxious- family states his brother passed a way a week ago from cancer coughing- bringing up thick greenish sputum Objective Vitals Vital Signs Date Time Temp Pulse Resp B/P (MAP) Pulse Ox O2 Delivery O2 Flow Rate FiO2 04/13/18 10:17 139 23 145/78 (100) 94 04/13/18 10:00 141 04/13/18 10:00 138 19 163/79 (107) 94 04/13/18 09:00 141 19 140/73 (95) 92 04/13/18 08:00 98.0 140 20 158/81 (106) 95 04/13/18 08:00 140 04/13/18 07:45 95 Nasal Cannula 2.00 04/13/18 06:00 81 04/13/18 04:00 77 04/13/18 04:00 98.4 77 15 131/60 (83) 93 04/13/18 02:00 84 04/13/18 00:00 83 04/13/18 00:00 98.6 83 17 151/65 (93) 95 04/12/18 22:00 77 04/12/18 20:03 04/12/18 20:00 98.5 97 26 151/70 (97) 95 04/12/18 20:00 96 04/12/18 19:58 98.0 92 20 191/93 (125) 95 04/12/18 19:20 96 Nasal Cannula 2.00 04/12/18 19:00 90 19 138/63 (88) 95 Nasal Cannula 2.00 04/12/18 19:00 89 19 95 Nasal Cannula 2.00 04/12/18 15:30 89 18 166/80 (108) 94 Nasal Cannula 3.00 04/12/18 13:30 92 Nasal Cannula 3.00 04/12/18 13:26 92 Nasal Cannula 3.00 04/12/18 13:26 93 35 93 Nasal Cannula 3.00 04/12/18 13:18 87 35 Nasal Cannula 2.00 04/12/18 13:18 97.6 87 35 150/81 (104) 92 Nasal Cannula 04/12/18 13:14 90 35 150/81 (104) 92 I/O 5/21/18 5/21/04/12/18 04/13/18 04/13/18 04/13/18 07:00 15:00 23:00 07:00 15:00 23:00 Intake Total 500 ml Output Total 1300 ml Balance -800 ml Intake Oral 500 ml Output Urine Total 1300 ml Stool Total 0 ml Result Diagram: 04/12/18 1339 04/13/18 0534 Imaging Last Impressions Chest X-Ray 04/12/18 1324 Signed Impressions: Service Date/Time: Thursday, April 12, 2018 14:00 - CONCLUSION: 1. Developing interstitial prominence suggesting some degree of vascular congestion or volume overload. 2. In addition, bibasilar airspace disease which could represent atelectasis or developing infiltrate. Abdi Tapia MD Objective Remarks awake and alert, appears anxious anicteric lungs- decreased breath sounds, no rales irregularly irregular rhythm abdomen soft, nontender extremities no edema neuro exam - unremarkable A/P Problem List: (1) Community acquired pneumonia ICD Code: J18.9 - Pneumonia, unspecified organism (2) SOB (shortness of breath) ICD Code: R06.02 - Shortness of breath (3) Hypoxia ICD Code: R09.02 - Hypoxemia Status: Acute Assessment and Plan 77-year-old with PMH significant for DM, bladder and colon CA, hypothyroidism, and a. fib anticoagulated on Eliquis who presents to the ER with worsening SOB. Patient reports that SOB began last Thursday and progressively got worse. Suspected Community acquired PNA (meets SEPSIS criteria: tachypnea, bands >10%) clinically bringing up thicvk greenish sputum- senmd sputum stuidies - CBC with no leukocytosis but neutrophils 81.9, +fevers last week, increased SOB, failed outpatient treatment - Lactic acid 2.1, recheck in 6hrs - Patient received Lasix 40mg and Solumederol 125mg IV in the ER - BC X2 obtained and pending - Chest x-ray reviewed, developing interstitial prominence suggesting some degree of vascular congestion or fluid overload. There is also bibasilar airspace disease which could represent atelectasis or developing infiltrate per radiologist. - BNP 68, patient does not appear fluid overloaded. Troponin negative, CK-MD 5.0, no chest pain. EKG with SR occasional PVC. - Start Azithromycin and Ceftriaxone IV - Duonebs Q4hr, PRN nebs Q2 hrs - Follow CBC and monitor clinically Acute respiratory failure Hypoxia-secondary to above -Tachypnea RR 35 on admission - NC to keep O2 sats >92% - Blood gas reviewed, pH 7.47, pCO2 28, HCO3 20 - Nebs scheduled and PRN - IS , 02 NC - D-dimer slightly elevated A.fib- rate uncontrolled- 90s- 120s given x 1 IV Lopressor- HR earlier in the 150s - Continue anticoagulation on Eliquis 5mg BID Increase Cardizem to 360 mg daily. may need additional BB or Amiodarone for additional rate control or Digoxin prn Cardiology consult- known to Dr. Alicia Hyponatremia- euvolemic on exam - NA 127, patient with poor PO intake - Await echo, recheck labs in the AM check TSH- . DM-continue home dose Metformin 1,000mg BID - 1800 ADA diet Colon/blader CA - Stable can follow up as outpatient Anxiety- give Ativan 0,5 mg po q 8 prn DVT prophylaxis-Eliquis and SCD's Out of bed to chair- increase activity and monitor HR Niya Lemus MD April 13, 2018 12:52
[2018-04-13] MEDS ORDERED: DILTIAZEM-CD 120 MG CAP ER PO ONE (13:00)
[2018-04-13] MEDS: LORazepam 0.5 MG TAB PO PRN ×2 (13:14→20:43)
--- NOTE | 2018-04-13 16:39 | EKG ---
Date Performed: 04/12/2018 Time Performed: 13:17:43 PTAGE: 77 years EKG: Sinus rhythm WITH OCCASIONAL VENTRICULAR PREMATURE COMPLEXES BORDERLINE ECG INTERPRETATION BASED ON A DEFAULT AGE OF 40 YEARS PREVIOUS TRACING : 04/05/2018 13.23 Since the previous tracing, no significant change not ed DOCTOR: Nicki Lamb Interpretating Date/Time 04/13/2018 16:38:37
[2018-04-13] MEDS: cefTRIAXone INJ 1,000 MG in SODIUM CHLORIDE 0.9% INJ 100 ML IV SCH (17:00)
[2018-04-13] MEDS: AZITHROMYCIN INJ 500 MG in SODIUM CHLOR 0.9% 250 ML INJ 250 ML IV SCH (17:16)
[2018-04-13] MEDS: ZOLPIDEM TARTRATE 5 MG TAB PO PRN (21:55)
[2018-04-14] VITALS (14 sets, daily range): BP systolic 100–159; BP diastolic 60–113; PULSE 85–134; RESP 19; TEMP 97.5–99; O2SAT 89–96
[2018-04-14] MEDS: CHLORHEXIDINE GLUCONATE 2 % 1 PACK (2 CLOTHS)(taper/protocol) TOPICAL SCH (03:34)
[2018-04-14] MEDS: RESP: ALBUTEROL 2.5 MG/IPRATROPIUM 0.5 MG NEB (SCH) NEB ×6 (04:02→23:27)
[2018-04-14] MEDS: LEVOTHYROXINE SODIUM 50 MCG TAB PO SCH (05:23)
[2018-04-14] MEDS: LORazepam 0.5 MG TAB PO PRN ×2 (06:49→21:17)
[2018-04-14] MEDS: DOCUSATE SODIUM 50 MG/SENNA 8.6 MG TAB PO SCH ×2 (08:43→20:29)
[2018-04-14] MEDS: CHOLECALCIFEROL (VIT D3) 5000 UNIT CAP PO SCH (08:43)
[2018-04-14] MEDS: APIXABAN 5 MG TABLET PO SCH ×2 (08:43→20:29)
[2018-04-14] MEDS: MULTIVITAMIN TAB PO SCH (08:44)
[2018-04-14] MEDS: metFORMIN HCL 500 MG TAB PO SCH (08:45)
[2018-04-14] MEDS: DILTIAZEM-CD 180 MG CAP ER PO SCH (08:46)
--- NOTE | 2018-04-14 13:17 | HHI.PR ---
Subjective Remarks heart rate variable 80s- 90s, rate up to occasionally 130s feels better cough better no chest pain or shortness of breath Objective Vitals Vital Signs Date Time Temp Pulse Resp B/P (MAP) Pulse Ox O2 Delivery O2 Flow Rate FiO2 04/14/18 10:00 134 04/14/18 08:00 98.6 131 126/85 (99) 92 04/14/18 08:00 131 04/14/18 07:51 93 04/14/18 06:00 104 04/14/18 04:00 98.3 93 141/71 (94) 93 04/14/18 04:00 93 04/14/18 02:00 113 04/14/18 00:00 102 04/14/18 00:00 97.5 102 19 127/82 (97) 89 04/13/18 22:00 133 04/13/18 20:00 97.0 105 23 153/73 (99) 91 04/13/18 20:00 105 04/13/18 19:52 95 21 04/13/18 18:01 113 29 141/78 (99) 91 04/13/18 18:00 123 24 94 04/13/18 18:00 88 04/13/18 17:00 121 24 107/80 (89) 93 04/13/18 16:57 115 27 132/83 (99) 91 04/13/18 16:00 141 04/13/18 16:00 98.0 89 22 142/59 (86) 92 04/13/18 14:00 129 31 105/74 (84) 93 04/13/18 14:00 88 I/O 04/13/18 04/13/18 04/13/18 04/14/18 04/14/18 04/14/18 07:00 15:00 23:00 07:00 15:00 23:00 Intake Total 500 ml 900 ml 400 ml Output Total 1300 ml 1500 ml 500 ml Balance -800 ml -600 ml -100 ml Intake Oral 500 ml 600 ml 400 ml IV Total 300 ml Output Urine Total 1300 ml 1500 ml 500 ml Stool Total 0 ml 0 ml 0 ml Result Diagram: 04/12/18 1339 04/13/18 0534 Imaging Last Impressions Chest X-Ray 04/12/18 1324 Signed Impressions: Service Date/Time: Thursday, April 12, 2018 14:00 - CONCLUSION: 1. Developing interstitial prominence suggesting some degree of vascular congestion or volume overload. 2. In addition, bibasilar airspace disease which could represent atelectasis or developing infiltrate. Abdi Tapia MD Objective Remarks awake and alert, appears anxious anicteric lungs- decreased breath sounds, no rales irregularly irregular rhythm abdomen soft, nontender extremities no edema neuro exam - unremarkable A/P Problem List: (1) Community acquired pneumonia ICD Code: J18.9 - Pneumonia, unspecified organism (2) SOB (shortness of breath) ICD Code: R06.02 - Shortness of breath (3) Hypoxia ICD Code: R09.02 - Hypoxemia Status: Acute Assessment and Plan 77-year-old with PMH significant for DM, bladder and colon CA, hypothyroidism, and a. fib anticoagulated on Eliquis who presents to the ER with worsening SOB. Patient reports that SOB began last Thursday and progressively got worse. Suspected Community acquired PNA (meets SEPSIS criteria: tachypnea, bands >10%) clinically bringing up thicvk greenish sputum- send sputum studies - CBC with no leukocytosis but neutrophils 81.9, +fevers last week, increased SOB, failed outpatient treatment - Lactic acid 2.1, recheck in 6hrs - Patient received Lasix 40mg and Solumederol 125mg IV in the ER - BC X2 obtained and pending - Chest x-ray reviewed, developing interstitial prominence suggesting some degree of vascular congestion or fluid overload. There is also bibasilar airspace disease which could represent atelectasis or developing infiltrate per radiologist. - BNP 68, patient does not appear fluid overloaded. Troponin negative, CK-MD 5.0, no chest pain. EKG with SR occasional PVC. - continue Azithromycin and Ceftriaxone IV - Duonebs Q4hr, PRN nebs Q2 hrs Acute respiratory failure Hypoxia-secondary to above- improved 92% at room air -Tachypnea RR 35 on admission - NC to keep O2 sats >92% - Blood gas reviewed, pH 7.47, pCO2 28, HCO3 20 - Nebs scheduled and PRN - IS , 02 NC - D-dimer slightly elevated- patient already on eliquis will do a walk test prior to DC A.fib- rate uncontrolled- 90s- 120s History of a fib 2017- post op- had colectomy done then given x 1 IV Lopressor- HR earlier in the 150s - Continue anticoagulation on Eliquis 5mg BID - Cardizem to 360 mg daily. may need additional BB or Amiodarone or Digoxin prn Cardiology consulted- known to Dr. Alicia- get another Echo last echo 2017- EF 60-655 Hyponatremia- euvolemic on exam - NA 127,- up to 130 - BMP in am DM-continue home dose Metformin 1,000mg BID - 1800 ADA diet Colon/blader CA - Stable can follow up as outpatient Anxiety- give Ativan 0,5 mg po q 8 prn DVT prophylaxis-Eliquis and SCD's Out of bed to chair- increase activity and monitor HR Niya Lemus MD April 14, 2018 13:17
[2018-04-14] MEDS: AZITHROMYCIN 250 MG TAB PO SCH (18:44)
[2018-04-14] MEDS: cefTRIAXone INJ 1,000 MG in SODIUM CHLORIDE 0.9% INJ 100 ML IV SCH (18:44)
--- NOTE | 2018-04-14 19:20 | MB ---
cc: Rajiv Alicia MD, Hanscy MD Lacierda,Chuy Hoang MD DATE: 04/14/2018 REASON FOR CONSULTATION: Atrial fibrillation. HISTORY OF PRESENT ILLNESS: Mr. Robbins is a 77-year-old gentleman with history of high blood pressure, atrial fibrillation during his last abdominal surgery. That was around 8 to 10 months ago. This gentleman was on anticoagulation. He was converted into sinus rhythm. He was stable. In the past couple of weeks, he was having tachyarrhythmia. Heart rate was high in the 150s [id number]. He went to the emergency room. He was admitted. He is on Eliquis. He has some pneumonia. I was consulted for evaluation and management. The chart was reviewed. The patient was evaluated. ALLERGIES: NONE. SOCIAL HISTORY: Negative for smoking and drinking. FAMILY HISTORY: Noncontributory to his current medical condition. MEDICATIONS: Zithromax, ceftriaxone, Eliquis. Metformin, multivitamin. REVIEW OF SYSTEMS: He referred tachyarrhythmia and shortness of breath, but no chest pain, no chest discomfort. PHYSICAL EXAMINATION: GENERAL: Alert, fully oriented. VITAL SIGNS: His blood pressure 140/80, pulse 112, respiratory rate 18. LUNGS: Ventilated. CARDIOVASCULAR: S1, S2. No gallop. ABDOMEN: Soft. No mass. EXTREMITIES: No edema. CARDIOLOGY STUDIES: Electrocardiogram showed atrial fibrillation with biventricular response. LABORATORY DATA: Hemoglobin 13.4, white blood cell 9.2. Potassium is 2.7, creatinine is 0.86. BNP is 68. ASSESSMENT AND RECOMMENDATIONS: Mr. Robbins has atrial fibrillation with biventricular response. Heart rate is very difficult to control. He also has pneumonia. I had a long conversation with he and his as well as his son. He is worried right now about ablation. I discussed with him the option of cardioversion, starting him on amiodarone, sending him home and schedule ablation as an outpatient. Apparently, this is what the patient agreed to. He is very anxious. Also, he has pneumonia. I am going to keep him on n.p.o. after midnight. Amiodarone is going to be initiated. Cardioversion in the morning. MD RADHA Sanchez/ , 06:51 PM , 07:18 PM
[2018-04-14] MEDS: AMIODARONE 200 MG TAB PO SCH (20:29)
[2018-04-14] MEDS ORDERED: METOPROLOL TARTRATE 5 MG/5 ML VIAL IV PUSH ONE (21:30)
[2018-04-14] MEDS ORDERED: LORazepam 2 MG/ML VIAL IV PUSH ONE (22:15)
[2018-04-15] VITALS (11 sets, daily range): BP systolic 122–137; BP diastolic 61–85; PULSE 100–131; RESP 19; TEMP 97.9–98.4; O2SAT 89–95
[2018-04-15] MEDS: RESP: ALBUTEROL 2.5 MG/IPRATROPIUM 0.5 MG NEB (SCH) NEB ×6 (03:26→22:59)
[2018-04-15] MEDS: CHLORHEXIDINE GLUCONATE 2 % 1 PACK (2 CLOTHS)(taper/protocol) TOPICAL SCH (04:00)
[2018-04-15] MEDS: ZOLPIDEM TARTRATE 5 MG TAB PO PRN (04:33)
[2018-04-15] MEDS: LEVOTHYROXINE SODIUM 50 MCG TAB PO SCH (05:20)
[2018-04-15 07:02] LABS: BICARBONATE 26.3 MEQ/L (21.0-32.0); CALCIUM 8.7 MG/DL (8.5-10.1); CREATININE 0.86 MG/DL (0.60-1.30)
[2018-04-15] MEDS: AMIODARONE 200 MG TAB PO SCH ×2 (08:05→20:05)
[2018-04-15] MEDS: CHOLECALCIFEROL (VIT D3) 5000 UNIT CAP PO SCH (08:05)
[2018-04-15] MEDS: MULTIVITAMIN TAB PO SCH (08:05)
[2018-04-15] MEDS: metFORMIN HCL 500 MG TAB PO SCH (08:05)
[2018-04-15] MEDS: DILTIAZEM-CD 180 MG CAP ER PO SCH (08:05)
[2018-04-15] MEDS: DOCUSATE SODIUM 50 MG/SENNA 8.6 MG TAB PO SCH ×2 (09:00→20:05)
[2018-04-15] MEDS: APIXABAN 5 MG TABLET PO SCH ×2 (09:00→20:05)
--- NOTE | 2018-04-15 11:18 | HHI.PR ---
Subjective Remarks Patient seen earlier this morning. HR still uncontrolled. He reports some shortness of breath. Will have cardioversion today. Objective Vitals Vital Signs Date Time Temp Pulse Resp B/P (MAP) Pulse Ox O2 Delivery O2 Flow Rate FiO2 04/15/18 08:46 92 Nasal Cannula 3.00 04/15/18 08:00 115 04/15/18 08:00 98.0 115 137/85 (102) 89 04/15/18 06:00 125 04/15/18 04:25 95 Nasal Cannula 3.00 04/15/18 04:00 120 04/15/18 04:00 97.9 120 133/61 (85) 91 04/15/18 02:00 100 04/15/18 00:00 98.4 131 126/84 (98) 92 04/15/18 00:00 131 04/14/18 22:00 121 04/14/18 20:00 134 04/14/18 20:00 97.8 134 159/113 (128) 96 04/14/18 19:37 96 21 04/14/18 18:00 106 04/14/18 16:00 99.0 112 140/60 (86) 94 04/14/18 16:00 112 04/14/18 14:00 85 04/14/18 12:00 98.4 112 100/67 (78) 94 04/14/18 12:00 112 I/O 04/14/18 04/14/18 04/14/18 04/15/18 04/15/18 04/15/18 07:00 15:00 23:00 07:00 15:00 23:00 Intake Total 400 ml 700 ml Output Total 500 ml 1300 ml Balance -100 ml -600 ml Intake Oral 400 ml 600 ml IV Total 100 ml Output Urine Total 500 ml 1300 ml Stool Total 0 ml 0 ml # Voids 4 Result Diagram: 04/12/18 1339 04/15/18 0530 Imaging Last Impressions Chest X-Ray 04/12/18 1324 Signed Impressions: Service Date/Time: Thursday, April 12, 2018 14:00 - CONCLUSION: 1. Developing interstitial prominence suggesting some degree of vascular congestion or volume overload. 2. In addition, bibasilar airspace disease which could represent atelectasis or developing infiltrate. Abdi Tapia MD Objective Remarks GENERAL: This is a well-nourished, well-developed patient, in no apparent distress. CARDIOVASCULAR: Rate in the 130s and irregular rhythm without murmurs, gallops, or rubs. RESPIRATORY: Good respiratory efforts. Breath sounds equal and clear to auscultation bilaterally. GASTROINTESTINAL: Abdomen soft, non-tender, non-distended. Normal active bowel sounds MUSCULOSKELETAL: Extremities without cyanosis, or edema. NEURO: Alert & Oriented x4 to person, place, time, situation. Moves all ext x4 PSYCH: Appropriate mood and affect. A/P Problem List: (1) Community acquired pneumonia ICD Code: J18.9 - Pneumonia, unspecified organism (2) SOB (shortness of breath) ICD Code: R06.02 - Shortness of breath (3) Hypoxia ICD Code: R09.02 - Hypoxemia Status: Acute Assessment and Plan 77-year-old with PMH significant for DM, bladder and colon CA, hypothyroidism, and a. fib anticoagulated on Eliquis who presents to the ER with worsening SOB. Patient reports that SOB began last Thursday and progressively got worse. Suspected Community acquired PNA (meets SEPSIS criteria: tachypnea, bands >10%) clinically bringing up thicvk greenish sputum- send sputum studies - CBC with no leukocytosis but neutrophils 81.9, +fevers last week, increased SOB, failed outpatient treatment - Lactic acid 2.1, recheck in 6hrs - Patient received Lasix 40mg and Solumederol 125mg IV in the ER - BC X2 obtained and pending - Chest x-ray reviewed, developing interstitial prominence suggesting some degree of vascular congestion or fluid overload. There is also bibasilar airspace disease which could represent atelectasis or developing infiltrate per radiologist. - BNP 68, patient does not appear fluid overloaded. Troponin negative, CK-MD 5.0, no chest pain. EKG with SR occasional PVC. - continue Azithromycin and Ceftriaxone IV - Duonebs Q4hr, PRN nebs Q2 hrs Acute respiratory failure Hypoxia-secondary to above- improved 92% at room air -Tachypnea RR 35 on admission - NC to keep O2 sats >92% - Blood gas reviewed, pH 7.47, pCO2 28, HCO3 20 - Nebs scheduled and PRN - IS , 02 NC - D-dimer slightly elevated- patient already on Eliquis - Patient weaned down to room air. A.fib- rate uncontrolled- 90s- 120s History of a fib 2017- post op- had colectomy done then given x 1 IV Lopressor- HR earlier in the 150s - Continue anticoagulation on Eliquis 5mg BID -Continue Cardizem 360 mg daily. Started on amiodarone per cardiology, Dr. Alicia get another Echo last echo 2017- EF 60-655 -Plan for cardioversion today per cardiology. Hyponatremia- euvolemic on exam - BMP in am DM-continue home dose Metformin 1,000mg BID - 1800 ADA diet Colon/blader CA - Stable can follow up as outpatient Anxiety- give Ativan 0,5 mg po q 8 prn DVT prophylaxis-Eliquis and SCD's Out of bed to chair- increase activity and monitor HR lCaudia Gaviria MD April 15, 2018 11:18
--- NOTE | 2018-04-15 11:25 | ECHRPT ---
Indication: A FIB FLUTTER CONCLUSIONS Normal left ventricular size. Wall thickness is normal. The left ventricular systolic function is low normal with an estimated ejection fraction in the rang e of 50- 55%. Mitral annular calcification is present. Mild mitral valve regurgitation. Aortic valve sclerosis is present. Mild aortic valve regurgitation. A moderate left sided pleural effusion is noted. BP: / HR: Rhythm: MEASUREMENTS (Male / Female) Normal Values Technical Quality: 2D ECHO LV Diastolic Diameter PLAX 4.7 cm 4.2 - 5.9 / 3.9 - 5.3 cm LV Systolic Diameter PLAX 3.7 cm IVS Diastolic Thickness 0.9 cm 0.6 - 1.0 / 0.6 - 0.9 cm LVPW Diastolic Thickness 0.9 cm 0.6 - 1.0 / 0.6 - 0.9 cm LV Relative Wall Thickness 0.4 LA Systolic Diameter LX 4.1 cm 3.0 - 4.0 / 2.7 - 3.8 cm DOPPLER AI Peak Velocity 352.0 cm/s AI Peak Gradient 49.6 mmHg AI Pressure Half Time 415.0 ms Mitral E Point Velocity 233.0 cm/s TR Peak Velocity 141.0 cm/s TR Peak Gradient 8.0 mmHg Right Atrial Pressure 10.0 mmHg Pulmonary Artery Systolic Pressu 18.0 mmHg Right Ventricular Systolic Press 18.0 mmHg FINDINGS LEFT VENTRICLE Normal left ventricular size. Wall thickness is normal. The left ventricular systolic function is low normal with an estimated ejection fraction in the rang e of 50- 55%. RIGHT VENTRICLE Normal right ventricular size and systolic function. LEFT ATRIUM The left atrial size is normal. RIGHT ATRIUM The right atrial size is normal. ATRIAL SEPTUM Normal atrial septal thickness without atrial level shunting by limited color doppler interrogation. AORTA The aortic root and proximal ascending aorta are normal in size on limited imaging. MITRAL VALVE Mitral annular calcification is present. Mild mitral valve regurgitation. AORTIC VALVE Aortic valve sclerosis is present. Mild aortic valve regurgitation. TRICUSPID VALVE Structurally normal tricuspid valve. No tricuspid valve stenosis or regurgitation. PULMONARY VALVE No pulmonary valve regurgitation or stenosis. VESSELS The inferior vena cava is normal in size. PERICARDIUM A moderate left sided pleural effusion is noted. Norman Salazar MD, FACC (Electronically Signed) Final Date:15 Apr 2018 11:24
[2018-04-15] MEDS ORDERED: SODIUM CHLOR 0.9% 1000 ML INJ 1,000 ML IV SCH (14:00)
[2018-04-15] MEDS: AZITHROMYCIN 250 MG TAB PO SCH (18:49)
[2018-04-15] MEDS: cefTRIAXone INJ 1,000 MG in SODIUM CHLORIDE 0.9% INJ 100 ML IV SCH (18:50)
[2018-04-15] MEDS: LORazepam 0.5 MG TAB PO PRN (20:04)
[2018-04-15] MEDS: RESP: ALBUTEROL 2.5 MG/IPRATROPIUM 0.5 MG NEB (PRN) NEB (21:30)
[2018-04-15] MEDS ORDERED: ALPRAZolam 0.5 MG TAB PO ONE (22:30)
[2018-04-16] VITALS (8 sets, daily range): BP systolic 88–139; BP diastolic 53–80; PULSE 80–124; RESP 20–31; TEMP 97.3–98.5; O2SAT 91–97
[2018-04-16] MEDS: RESP: ALBUTEROL 2.5 MG/IPRATROPIUM 0.5 MG NEB (PRN) NEB ×2 (02:17→21:08)
[2018-04-16] MEDS: RESP: ALBUTEROL 2.5 MG/IPRATROPIUM 0.5 MG NEB (SCH) NEB ×4 (04:00→14:58)
[2018-04-16] MEDS: CHLORHEXIDINE GLUCONATE 2 % 1 PACK (2 CLOTHS)(taper/protocol) TOPICAL SCH (04:00)
[2018-04-16] MEDS: LORazepam 0.5 MG TAB PO PRN ×2 (05:31→20:05)
[2018-04-16] MEDS: LEVOTHYROXINE SODIUM 50 MCG TAB PO SCH (05:31)
[2018-04-16] MEDS: APIXABAN 5 MG TABLET PO SCH ×2 (08:57→20:05)
[2018-04-16] MEDS: DILTIAZEM-CD 180 MG CAP ER PO SCH (08:57)
[2018-04-16] MEDS: AMIODARONE 200 MG TAB PO SCH ×2 (08:57→20:05)
[2018-04-16] MEDS: CHOLECALCIFEROL (VIT D3) 5000 UNIT CAP PO SCH (08:57)
[2018-04-16] MEDS: DOCUSATE SODIUM 50 MG/SENNA 8.6 MG TAB PO SCH ×2 (08:57→20:05)
[2018-04-16] MEDS: MULTIVITAMIN TAB PO SCH (08:57)
--- NOTE | 2018-04-16 14:24 | HHI.PR ---
Subjective Remarks Heart rate has been fluctuating down to the 80s. On my evaluation is heart rate was around 110. He denies chest pain or shortness of breath. Patient states cardioversion is scheduled for today. Objective Vitals Vital Signs Date Time Temp Pulse Resp B/P (MAP) Pulse Ox O2 Delivery O2 Flow Rate FiO2 04/16/18 08:00 122 134/80 (98) 91 04/16/18 08:00 84 04/16/18 07:45 94 Nasal Cannula 3.00 04/16/18 04:00 114 04/16/18 04:00 97.9 114 20 88/53 (65) 94 04/16/18 00:00 124 04/16/18 00:00 97.9 124 126/73 (90) 91 04/15/18 20:00 98.3 122 19 122/69 (86) 92 04/15/18 20:00 122 04/15/18 19:59 93 21 04/15/18 16:00 122 134/80 (98) 91 04/15/18 16:00 122 I/O 04/15/18 04/15/18 04/15/18 04/16/18 04/16/18 04/16/18 07:00 15:00 23:00 07:00 15:00 23:00 Intake Total 360 ml 100 ml Output Total 500 ml Balance -140 ml 100 ml Intake Oral 360 ml IV Total 100 ml Output Urine Total 500 ml Stool Total 0 ml # Voids 4 3 Result Diagram: 04/12/18 1339 04/15/18 0530 Objective Remarks GENERAL: This is a well-nourished, well-developed patient, in no apparent distress. CARDIOVASCULAR: Rate in the 110s and irregular rhythm without murmurs, gallops, or rubs. RESPIRATORY: Good respiratory efforts. Breath sounds equal and clear to auscultation bilaterally. GASTROINTESTINAL: Abdomen soft, non-tender, non-distended. Normal active bowel sounds MUSCULOSKELETAL: Extremities without cyanosis, or edema. NEURO: Alert & Oriented x4 to person, place, time, situation. Moves all ext x4 PSYCH: Appropriate mood and affect. A/P Problem List: (1) Community acquired pneumonia ICD Code: J18.9 - Pneumonia, unspecified organism (2) SOB (shortness of breath) ICD Code: R06.02 - Shortness of breath (3) Hypoxia ICD Code: R09.02 - Hypoxemia Status: Acute Assessment and Plan 77-year-old with PMH significant for DM, bladder and colon CA, hypothyroidism, and a. fib anticoagulated on Eliquis who presents to the ER with worsening SOB. Patient reports that SOB began last Thursday and progressively got worse. Suspected Community acquired PNA (meets SEPSIS criteria: tachypnea, bands >10%) clinically was bringing up thick greenish sputum- send sputum studies - CBC with no leukocytosis but neutrophils 81.9, +fevers last week, increased SOB, failed outpatient treatment - Patient received Lasix 40mg and Solumederol 125mg IV in the ER - BC so far negative - Chest x-ray reviewed, developing interstitial prominence suggesting some degree of vascular congestion or fluid overload. There is also bibasilar airspace disease which could represent atelectasis or developing infiltrate per radiologist. - BNP 68, patient does not appear fluid overloaded. Troponin negative, no chest pain. EKG with SR occasional PVC. - continue Azithromycin and Ceftriaxone IV - Duonebs Q4hr, PRN nebs Q2 hrs Acute respiratory failure Hypoxia-secondary to above- improved 92% at room air -Tachypnea RR 35 on admission - NC to keep O2 sats >92% - Blood gas reviewed, pH 7.47, pCO2 28, HCO3 20 - Nebs scheduled and PRN - IS , 02 NC - D-dimer slightly elevated- patient already on Eliquis - Patient weaned down to room air. A.fib- rate uncontrolled- 90s- 120s History of a fib 2017- post op- had colectomy done then given x 1 IV Lopressor- HR earlier in the 150s - Continue anticoagulation on Eliquis 5mg BID -Continue Cardizem 360 mg daily. Started on amiodarone per cardiology, Dr. Alicia get another Echo last echo 2017- EF 60-119 -Plan for cardioversion per cardiology. Hyponatremia- euvolemic on exam - BMP in am DM-continue home dose Metformin 1,000mg BID - 1800 ADA diet Colon/blader CA - Stable can follow up as outpatient Anxiety- give Ativan 0,5 mg po q 8 prn DVT prophylaxis-Eliquis and SCD's Out of bed to chair- increase activity and monitor HR Claudia Gaviria MD April 16, 2018 14:24
[2018-04-16] MEDS: metFORMIN HCL 500 MG TAB PO SCH (17:07)
[2018-04-16] MEDS: cefTRIAXone INJ 1,000 MG in SODIUM CHLORIDE 0.9% INJ 100 ML IV SCH (17:08)
[2018-04-16] MEDS: AZITHROMYCIN 250 MG TAB PO SCH (17:08)
[2018-04-16 18:03] LABS: BICARBONATE 18.6 MEQ/L (21.0-32.0); CALCIUM 8.6 MG/DL (8.5-10.1); CREATININE 0.76 MG/DL (0.60-1.30)
[2018-04-16] MEDS ORDERED: SODIUM CHLOR 0.9% 1000 ML INJ 1,000 ML IV SCH (19:00)
[2018-04-16] MEDS: ZOLPIDEM TARTRATE 5 MG TAB PO PRN (20:05)
[2018-04-16] MEDS ORDERED: ALPRAZolam 0.5 MG TAB PO ONE (21:45)
--- NOTE | 2018-04-16 23:08 | HHI.PR ---
Subjective Remarks Feeling better Objective Vital Signs Date Time Temp Pulse Resp B/P (MAP) Pulse Ox O2 Delivery O2 Flow Rate FiO2 04/16/18 21:10 97 Nasal Cannula 6.00 04/16/18 20:00 97.8 80 21 139/65 (89) 96 04/16/18 20:00 80 04/16/18 16:00 98.5 108 31 139/80 (99) 95 04/16/18 16:00 93 04/16/18 12:00 93 04/16/18 12:00 97.3 93 25 126/71 (89) 94 04/16/18 08:00 122 134/80 (98) 91 04/16/18 08:00 84 04/16/18 07:45 94 Nasal Cannula 3.00 04/16/18 04:00 114 04/16/18 04:00 97.9 114 20 88/53 (65) 94 04/16/18 00:00 124 04/16/18 00:00 97.9 124 126/73 (90) 91 I/O 04/16/18 04/16/18 04/16/18 04/17/18 04/17/18 04/17/18 07:00 15:00 23:00 07:00 15:00 23:00 Intake Total 100 ml 460 ml Output Total 700 ml Balance 100 ml -240 ml Intake Oral 360 ml IV Total 100 ml 100 ml Output Urine Total 700 ml Stool Total 0 ml # Voids 3 2 Result Diagram: 04/12/18 1339 04/16/18 1609 Imaging Alert, fully oriented Lungs: Ventilated, minimal basal crackles Heart: S1, S2 regular, no gallop Abdomen: soft, no mass Ext: no edema Last Impressions Chest X-Ray 04/12/18 1324 Signed Impressions: Service Date/Time: Thursday, April 12, 2018 14:00 - CONCLUSION: 1. Developing interstitial prominence suggesting some degree of vascular congestion or volume overload. 2. In addition, bibasilar airspace disease which could represent atelectasis or developing infiltrate. Abdi Tapia MD Current Medications Medications (Trade) Dose Ordered Sig/Daniel Route Start Time Stop Time Status Last Admin (NS Flush) 2 ml UNSCH PRN IVF 04/12/18 13:30 (Tylenol) 650 mg Q4H PRN PO 04/12/18 16:30 (Narcan Inj) 0.4 mg UNSCH PRN IV PUSH 04/12/18 16:30 (Janet-Colace) 1 tab BID PO 04/12/18 21:00 04/16/18 20:05 (Milk Of Magnesia Liq) 30 ml Q12H PRN PO 04/12/18 16:30 (Senokot) 17.2 mg Q12H PRN PO 04/12/18 16:30 (Dulcolax Supp) 10 mg DAILY PRN RECTAL 04/12/18 16:30 (Lactulose Liq) 30 ml DAILY PRN PO 04/12/18 16:30 Ceftriaxone Sodium 1000 mg/ Sodium Chloride 100 ml @ 200 mls/hr Q24H IV 04/12/18 17:00 04/16/18 17:08 (Duoneb Neb) 1 ampule Q2HR NEB PRN NEB 04/12/18 16:30 04/16/18 21:08 (Eliquis) 5 mg BID PO 04/12/18 21:00 04/16/18 20:05 (Vitamin D3) 5,000 units DAILY PO 04/13/18 09:00 04/16/18 08:57 (Synthroid) 50 mcg DAILY@0600 PO 04/13/18 06:00 04/16/18 05:31 (Glucophage) 1,000 mg DAILY PO 04/13/18 09:00 04/16/18 17:07 (Ambien) 5 mg HS PRN PO 04/12/18 21:00 04/16/18 20:05 (Theragran) 1 tab DAILY PO 04/13/18 09:00 04/16/18 08:57 (Catapres) 0.1 mg Q6H PRN PO 04/12/18 17:45 ([facility] [place] [facility]) Patient in critical care unit? Ass... [id number] .XX 04/12/18 20:45 (Chlorhexidine 2% Cloth) 3 pack DAILY@04 TOPICAL 04/13/18 04:00 04/17/18 04:01 04/16/18 04:00 (Chlorhexidine 2% Cloth) 3 pack UNSCH PRN TOPICAL 04/12/18 20:45 04/17/18 20:39 (Cardizem Cd) 360 mg DAILY PO 04/14/18 09:00 04/16/18 08:57 (Ativan) 0.5 mg Q8H PRN PO 04/13/18 13:15 04/16/18 20:05 (Zithromax) 500 mg Q24H PO 04/14/18 17:00 04/17/18 16:59 04/16/18 17:08 (Cordarone) 400 mg BID PO 04/14/18 21:00 04/19/18 09:01 04/16/18 20:05 (Cordarone) 200 mg DAILY PO 04/20/18 09:00 Sodium Chloride 1,000 ml @ 75 mls/hr [id number] IV 04/16/18 19:00 04/17/18 08:19 04/16/18 19:00 Assessment and Plan Problem List: (1) Atrial fibrillation with rapid ventricular response ICD Codes: I48.91 - Unspecified atrial fibrillation Plan: Patient was seen yesterday Was still in afib w FVR Cardioversion was scheduled for today Converted back into sinus rhythm Still on treatment for pneumonia Continue on antibiotic can be DH. Ablation will be scheduled as OP case discussed again today with patient and his (2) CHF (congestive heart failure) ICD Codes: I50.9 - Heart failure, unspecified Status: Acute Plan: SOB is due most to the pneumonia and atrial fib Improve since back into sinus rhythm Problem Qualifiers (1) CHF (congestive heart failure): Qualified Codes: I50.9 - Heart failure, unspecified Rajiv Alicia MD April 16, 2018 23:08
[2018-04-17] VITALS: BP 146/75; PULSE 80; TEMP 97.6; O2SAT 92
[2018-04-17 04:00] VITALS: BP 157/77; PULSE 73; TEMP 98; O2SAT 92
[2018-04-17] MEDS: CHLORHEXIDINE GLUCONATE 2 % 1 PACK (2 CLOTHS)(taper/protocol) TOPICAL SCH (04:00)
[2018-04-17] MEDS: LEVOTHYROXINE SODIUM 50 MCG TAB PO SCH (06:10)
[2018-04-17 08:00] VITALS: BP 139/75; PULSE 76; RESP 21; TEMP 98.6; O2SAT 88
[2018-04-17] MEDS: MULTIVITAMIN TAB PO SCH (08:15)
[2018-04-17] MEDS: CHOLECALCIFEROL (VIT D3) 5000 UNIT CAP PO SCH (08:15)
[2018-04-17] MEDS: metFORMIN HCL 500 MG TAB PO SCH (08:16)
[2018-04-17] MEDS: DOCUSATE SODIUM 50 MG/SENNA 8.6 MG TAB PO SCH (08:16)
[2018-04-17] MEDS: DILTIAZEM-CD 180 MG CAP ER PO SCH (08:17)
[2018-04-17] MEDS: APIXABAN 5 MG TABLET PO SCH (08:18)
[2018-04-17] MEDS: AMIODARONE 200 MG TAB PO SCH (08:18)
[2018-04-17] MEDS: RESP: ALBUTEROL 2.5 MG/IPRATROPIUM 0.5 MG NEB (PRN) NEB (08:29)
[2018-04-17 08:30] VITALS: O2SAT 97
[2018-04-17] MEDS ORDERED: AZIT250T3 PO (09:28)
[2018-04-17] MEDS ORDERED: AMIO200T PO (09:28)
[2018-04-17] MEDS ORDERED: DILT360C12 PO (09:28)
[2018-04-17] MEDS ORDERED: LORA-392 PO (09:28)
[2018-04-17] MEDS ORDERED: CEFU1TAB20 PO (09:29)
--- NOTE | 2018-04-17 09:31 | HHI.DCPOC ---
Discharge Care Plan Diagnosis: (1) Atrial fibrillation with rapid ventricular response (2) Community acquired pneumonia (3) SOB (shortness of breath) (4) GERD (gastroesophageal reflux disease) (5) Hypoxia Goals to Promote Your Health * To prevent worsening of your condition and complications * To maintain your health at the optimal level Directions to Meet Your Goals Take your medications as prescribed Follow your dietary instruction Follow activity as directed Keep your appointments as scheduled Take your immunizations and boosters as scheduled If your symptoms worsen call your PCP, if no PCP go to Urgent Care Center or Emergency Room Smoking is Dangerous to Your Health. Avoid second hand smoke Call the 24-hour hour crisis hotline for domestic abuse at Claudia Gaviria MD April 17, 2018 09:31
--- NOTE | 2018-04-17 09:33 | HHI.DS ---
Discharge Summary Admission Date April 12, 2018 at 15:33 Discharge Date: April 17, 2018 Admitting Diagnosis new onset CHF, hypoxia (1) Community acquired pneumonia ICD Code: J18.9 - Pneumonia, unspecified organism Diagnosis: Principal (2) SOB (shortness of breath) ICD Code: R06.02 - Shortness of breath (3) Hypoxia ICD Code: R09.02 - Hypoxemia Status: Acute Procedures None Brief History - From Admission HPI from the admitting physician 77-year-old with PMH significant for DM, bladder and colon CA, hypothyroidism, and a. fib anticoagulated on Eliquis who presents to the ER with worsening SOB. Patient reports that SOB began last Thursday and progressively got worse. Patient was recently seen in the ER on 04/05 after he developed heart palpitations. He was treated with low dose Diltiazem and discharged home to follow-up with his parking lot attendant Dr. Alicia. SOB has gotten worse for the past several days, had productive cough last week with fevers per at bedside. Patient was in to see his PCP recently and placed on Doxycycline and a cough syrup. He stop taking cough syrup due to codeine, he did not like the way it was making him feel. He has continued to take the antibiotic, however his SOB continues. Now his cough is non-productive. SOB is present even without exertion. He had an appointment to see today, called parking lot attendant to let him know about his respiratory status, but he was instructed to come to ER. Some nausea last week but no vomiting, poor appetite. He denies any chest pain, dizziness, abdominal or calf pain. Denies dysuria, constipation or diarrhea. also states that patient recently traveled to see brother who recently passed. [place] and returned April 03. CBC/BMP: 04/16/18 1609 Significant Findings Laboratory Tests Test 04/15/18 05:30 04/16/18 16:09 Blood Urea Nitrogen 21 MG/DL (7-18) Random Glucose 154 MG/DL (74-106) Sodium Level 127 MEQ/L (136-145) 127 MEQ/L (136-145) Potassium Level 3.4 MEQ/L (3.5-5.1) Chloride Level 90 MEQ/L (98-107) 95 MEQ/L (98-107) Estimat Glomerular Filtration Rate 87 ML/MIN (>89) Carbon Dioxide Level 18.6 MEQ/L (21.0-32.0) Imaging Last Impressions Chest X-Ray 04/12/18 1324 Signed Impressions: Service Date/Time: Thursday, April 12, 2018 14:00 - CONCLUSION: 1. Developing interstitial prominence suggesting some degree of vascular congestion or volume overload. 2. In addition, bibasilar airspace disease which could represent atelectasis or developing infiltrate. Abdi Tapia MD PE at Discharge GENERAL: This is a well-nourished, well-developed patient, in no apparent distress. CARDIOVASCULAR: Rate in the 110s and irregular rhythm without murmurs, gallops, or rubs. RESPIRATORY: Good respiratory efforts. Breath sounds equal and clear to auscultation bilaterally. GASTROINTESTINAL: Abdomen soft, non-tender, non-distended. Normal active bowel sounds MUSCULOSKELETAL: Extremities without cyanosis, or edema. NEURO: Alert & Oriented x4 to person, place, time, situation. Moves all ext x4 PSYCH: Appropriate mood and affect. Pt update on day of discharge Patient reports he is feeling better. He is in normal sinus rhythm. Did not require cardioversion. Will follow up outpatient with cardiology. Hospital Course 77-year-old with PMH significant for DM, bladder and colon CA, hypothyroidism, and a. fib anticoagulated on Eliquis who presents to the ER with worsening SOB. Patient reports that SOB began last Thursday and progressively got worse. Evaluation and treatment course detailed below: Suspected Community acquired PNA (meets SEPSIS criteria: tachypnea, bands >10%) clinically was bringing up thick greenish sputum- send sputum studies - CBC with no leukocytosis but neutrophils 81.9, +fevers last week, increased SOB, failed outpatient treatment - Patient received Lasix 40mg and Solumederol 125mg IV in the ER - BC negative - Chest x-ray reviewed, developing interstitial prominence suggesting some degree of vascular congestion or fluid overload. There is also bibasilar airspace disease which could represent atelectasis or developing infiltrate per radiologist. - BNP 68, patient does not appear fluid overloaded. Troponin negative, no chest pain. EKG with SR occasional PVC. -Patient treated with Rocephin and azithromycin. Symptoms significantly improved. He is discharged on oral antibiotics to complete the course of treatment. Acute respiratory failure Hypoxia-secondary to above-symptoms improved. However he will require home oxygen for now. This was ordered. A. fib with RVR and uncontrolled rate. The patient was started on amiodarone. He was supposed to have a cardioversion. However he spontaneously converted to sinus rhythm. - Continue anticoagulation on Eliquis 5mg BID -Continue Cardizem 360 mg daily. Continue on amiodarone per cardiology, Dr. Alicia -Patient will follow up with cardiology outpatient Hyponatremia- euvolemic on exam DM-continue home dose Metformin 1,000mg BID - 1800 ADA diet Colon/blader CA - Stable can follow up as outpatient Anxiety- Ativan 0,5 mg po q 8 prn Pt Condition on Discharge: Good Discharge Disposition: Disch w/ Home Health Serv Discharge Time: > 30 minutes Discharge Instructions DIET: Follow Instructions for: Diabetic Diet Activities you can perform: Regular-No Restrictions Follow up Referrals: Cardiology - 2 Weeks with Rajiv Alicia MD PCP Follow-up New Medications: Cefuroxime (Cefuroxime) 500 Mg Tab 500 MG PO BID for Infection, #6 TAB 0 Refills Oxygen (O2) (Oxygen (O2)) Device LITER GUDELIA.CANULA CONTINUOUS for Prevent Hypoxemia, #3 Oxygen Concentrator Portable Gaseous 3 L/min via Nasal Canula Continuous For 99 months Amiodarone (Amiodarone) 200 Mg Tab 200 MG PO DAILY, #30 TAB Take 400 mg twice daily for two days, then take 200 mg daily Azithromycin (Azithromycin) 250 Mg Tab 250 MG PO Q24H, #2 TAB Lorazepam (Ativan) 0.5 Mg Tab 0.5 MG PO Q8H PRN for ANXIETY, #15 TAB Changed Medications: Diltiazem CD 24 HR (Diltiazem CD 24 HR) 360 Mg Capcr 360 MG PO DAILY, #30 CAP 0 Refills (Changed from: Diltiazem CD 24 HR (Cardizem CD 24 HR) 240 Mg Caper 240 Mg PO DAILY Ref 0) Continued Medications: Apixaban (Eliquis) 5 Mg Tab 5 MG PO BID for Blood Clot Prevention, #60 TAB 0 Refills Cholecalciferol (Vitamin D3) 5,000 Unit Cap 5000 UNITS PO DAILY for Nutritional Supplement, #30 CAP 0 Refills Levothyroxine (Levothyroxine) 50 Mcg Tab 50 MCG PO DAILY for Thyroid, #30 TAB 0 Refills Metformin (Metformin) 1,000 Mg Tab 1000 MG PO DAILY for Blood Sugar Management, #30 TAB 0 Refills With a meal Multiple Vitamin (Multi-Vitamin Daily) 1 Tab Tab 1 TAB PO DAILY for Nutritional Supplement, TAB 0 Refills Multiple Vitamin (Multiple Vitamin) 1 Tab 1 TAB PO DAILY for Nutritional Supplement, TAB 0 Refills Red Yeast Rice Extract (Red Yeast Rice) 600 Mg Tab 1200 MG PO BID Zolpidem (Ambien) 5 Mg Tab 5 MG PO HS PRN for INSOMNIA, #30 TAB Claudia Gaviria MD April 17, 2018 09:33
[2018-04-17] MEDS ORDERED: OXYGENDME NAS.CANULA (11:25)
[2018-04-17 12:00] VITALS: BP 140/68; PULSE 75; RESP 21; O2SAT 95
[2018-04-20] MEDS ORDERED: AMIODARONE 200 MG TAB PO SCH (09:00)
== END 2018-04-17 12:20 | disposition home health service (06) | DRG 871 ==
LOC: NEPC 13:04 → NEDA 15:33 → HIMN 19:50
PROVIDERS: ADMIT Family Medicine; ATTEND Family Medicine
DX: A41.9 Sepsis, unspecified organism (principal); J18.9 Pneumonia, unspecified organism; J96.01 Acute respiratory failure with hypoxia; I50.9 Heart failure, unspecified; E11.65 Type 2 diabetes mellitus with hyperglycemia; I48.91 Unspecified atrial fibrillation; E87.1 Hypo-osmolality and hyponatremia; E03.9 Hypothyroidism, unspecified; Z85.038 Personal history of other malignant neoplasm of large intestine; Z87.891 Personal history of nicotine dependence; Z85.51 Personal history of malignant neoplasm of bladder; Z90.49 Acquired absence of other specified parts of digestive tract; F41.9 Anxiety disorder, unspecified; Z79.01 Long term (current) use of anticoagulants; Z79.84 Long term (current) use of oral hypoglycemic drugs
CPT/HCPCS: 31500; 36600; 71045; 80048; 80053; 82550; 82552; 82805; 83605; 83735; 83880; 84443; 84484; 85025; 85379; 85610; 85730; 87040; 87641; 92950; 93005; 93306; 94150; 94618; 94640; 94664; 96374; 96375; J0456; J0696; J1940; J2060; J2930; J7030; J7050

== ENCOUNTER 2018-05-05 15:49 | Day surgery (SDC) | payer OTHER ==
[~2018-05-05] VITALS: Ht 162.6 cm; Wt 74.0 kg
[~2018-05-05 15:49] MED LIST changes: +AMIO200T PO; +AZIT250T3 PO; +CEFU1TAB20 PO; +DEXAMETHASONE SOD PHOS 4 MG/ML VIAL IV ONE; -DILT120C50 PO; +DILT360C12 PO; +GLYCOPYRROLATE 1 MG/5 ML SYRINGE IV PUSH ONE; +LIDOCAINE HCL 1% PF 5 ML SYRINGE OTHER ONE; +LORA-392 PO; +MULTTAB67 PO; +NEOSTIGMINE 5 MG/5 ML SYRINGE IV PUSH ONE; +ONDANSETRON HCL 4 MG/2 ML VIAL IV ONE; +OXYGENDME NAS.CANULA; +PROPOFOL 200 MG/20 ML AMP IV ONE; +ROCURONIUM INJ 50 MG/5 ML SYRINGE IV PUSH ONE; +SODIUM CHLORID 0.9% 500 ML INJ 500 ML IV ONE; +ePHEDrine/NS 25 MG/5 ML SYRINGE IV ONE
[2018-05-05 16:38] VITALS: BP 170/80; PULSE 64; RESP 16; TEMP 98; O2SAT 97
[2018-05-05 16:40] LABS: AUTOMATED NEUTROPHIL # 4.4 TH/MM3 (1.8-7.7); BASOPHIL # 0.1 TH/MM3 (0-0.2); BASOPHIL % 0.7 % (0.0-2.0); EOSINOPHIL # 0.2 TH/MM3 (0-0.4); EOSINOPHIL % 2.1 % (0.0-4.0); HEMATOCRIT 39.8 % (39.0-51.0); HEMOGLOBIN 13.5 GM/DL (13.0-17.0); LYMPH % 32.5 % (9.0-44.0); LYMPHOCYTE # 2.5 TH/MM3 (1.0-4.8); MEAN CELL VOLUME 85.4 FL (80.0-100.0); MEAN CORPUSCULAR HEMOGLOBIN 29.1 PG (27.0-34.0); MEAN PLATELET VOLUME 7.3 FL (7.0-11.0); MONO % 7.4 % (0.0-8.0); MONOCYTE # 0.6 TH/MM3 (0-0.9); NEUT % 57.3 % (16.0-70.0); PLATELET COUNT 205 TH/MM3 (150-450); RED BLOOD COUNT 4.66 MIL/MM3 (4.50-5.90); RED CELL DISTRIBUTION WIDTH 14.6 % (11.6-17.2); WHITE BLOOD COUNT 7.7 TH/MM3 (4.0-11.0)
[2018-05-05 16:49] LABS: INTERNATIONAL NORMALIZED RATIO 1.1 RATIO; PROTHROMBIN TIME - PATIENT 11.2 SEC (9.8-11.6)
[2018-05-05] MEDS ORDERED: SODIUM CHLORID 0.9% 500 ML INJ 500 ML IV SCH (17:00)
[2018-05-05] MEDS ORDERED: CHLORHEXIDINE GLUCONATE 2 % 1 PACK (2 CLOTHS) TOPICAL PRN (17:00)
[2018-05-05] MEDS ORDERED: LORazepam 1 MG TAB SL SCH (17:00)
[2018-05-05] MEDS ORDERED: POVIDONE IODINE 5% (ANTISEPSIS KIT) 4 APPLICATIONS EACH NARE PRN (17:00)
[2018-05-05] MEDS ORDERED: SODIUM CHLORID 0.9% 500 ML IV PRN (17:00)
[2018-05-05] MEDS ORDERED: LACTATED RINGER'S 1000 ML IV PRN (17:00)
[2018-05-05] MEDS ORDERED: METOPROLOL TARTRATE 25 MG TAB PO PRN (17:00)
[2018-05-05 17:01] LABS: BICARBONATE 23.3 MEQ/L (21.0-32.0); CALCIUM 9.2 MG/DL (8.5-10.1); CREATININE 1.09 MG/DL (0.60-1.30)
[2018-05-05] MEDS ORDERED: HEPARIN-NS/PF INJ 1,000 ML ONE (18:38)
[2018-05-05] MEDS ORDERED: LEVOFLOXACIN 500 MG PREMIX INJ 100 ML IV ONE (19:26)
[2018-05-05] MEDS ORDERED: HEPARIN-D5W 25,000 U/250 ML 250 ML ONE (19:28)
[2018-05-05] MEDS ORDERED: ISOPROTERENOL INJ PREMIX 50 ML IV ONE (19:28)
[2018-05-05] MEDS ORDERED: MIDAZOLAM HCL 2 MG/2 ML VIAL ONE (19:28)
[2018-05-05] MEDS ORDERED: PROTAMINE SULFATE 50 MG/5 ML VIAL ONE (19:28)
[2018-05-05] MEDS ORDERED: HEPARIN SODIUM - IV 10,000 UNITS/10 ML VIAL ONE (19:29)
[2018-05-05] MEDS ORDERED: BACITRACIN OINT 0.9 GM PKT TOP ONE (21:15)
[2018-05-05] MEDS ORDERED: ZOLPIDEM TARTRATE 5 MG TAB PO PRN (21:15)
[2018-05-05] MEDS ORDERED: ATROPINE SULFATE 1 MG/ML VIAL IV PUSH PRN (21:15)
[2018-05-05] MEDS ORDERED: LORazepam 2 MG/ML VIAL IV PUSH PRN (21:15)
[2018-05-05] MEDS ORDERED: LIDOCAINE HCL 1% 50 ML VIAL INFIL PRN (21:15)
[2018-05-05] MEDS ORDERED: oxyCODONE/ACETAMINOPHEN 5 MG/325 MG TAB PO PRN ×2 (21:15)
[2018-05-05] MEDS ORDERED: ONDANSETRON HCL 4 MG/2 ML VIAL IV PUSH PRN (21:15)
[2018-05-05] MEDS ORDERED: SODIUM CHLOR 0.9% 250 ML INJ 250 ML IV PRN (21:15)
--- NOTE | 2018-05-05 21:37 | CATHPROC ---
[employer] HIS Report Study Information Study Number Admission Scheduled Start Study Start [id number] May 05 2018 3:49PM 05/05/2018 May 05 2018 6:54PM [place] [facility] Electrophysiology Study Admit Source Facility Department Other [facility] - Partner Integration Planner Physician and Clinical Staff Initial Rajiv Hartman Building Construction Teacher Rafaela Charles,RT(R) TECH2 Other Shena Montoya,MYRNA Other Anesthesia, VIDEO GAME DESIGNER Recorder Sanjana Fuller BSN Scrub Kumar Leon,RT(R) Procedures Performed Procedure Location (Site) Vessel Name Ablation Procedure ICE CATHETER INSERT RA Atruim Equipment Time [facility] Demonstration Agent Description Size Mfg Part Number Used/Scraped COPILOT VALVE, BLEEDBACK [id number] 19:14 [employer] Used CONTROL *[id number] COPILOT VALVE, BLEEDBACK [id number] 19:21 [employer] Used CONTROL *[id number] TRANSDUCER, TRUWAVE [id number] 19:14 COSBY CUELLO * Used W/STOCKCOCK *[id number] NEEDLE, TRANSSEPTAL [facility] 98 [id number] 19:14 [facility] Used C1 *[id number] CATHETER, TACTICATH ABLAT BUNDLE 20:22 [facility] Used 65 BUNDLE *[id number]- BUNDLE [id number] CATHETER, FR7 OPTIMA SPIRAL 20:18 [facility] FR7 *[id number]- Used BUNDLE BUNDLE SHEATH, FR8.5 STEERABLE SM 20:18 B[facility] 71CM [id number] Used 71CM BUNDLE [id number] 21:02 [employer] MED[employer] VASCADE, FR5 CLOSURE SYSTEM FR 5 Used *[id number] 21:02 [employer] VASCADE, FR6 CLOSURE SYSTEM FR 6\\7 Used *[id number] 21:02 [employer] MEDICAL VASCADE, FR6 CLOSURE SYSTEM FR 6\\7 Used *[id number] 21:02 [employer] MEDICAL VASCADE, FR6 CLOSURE SYSTEM FR 6\\7 Used *[id number] 21:02 [employer] MEDICAL VASCADE, FR6 CLOSURE SYSTEM FR 6\\7 Used *[id number] COVER, TRANSDUCER CABLE [id number] 19:14 [employer] Used ACUNAV *3214173 19:14 CONMED LEADWIRE, DEFIBRILLATION PAD [id number] Used [id number] 19:14 CORDIS/PACER SHEATH, FR10 BRENDA 11CM FR 10 Used *[id number] 20:27 CORDIS/PACER SHEATH, FR9 BRENDA 11CM FR 9 [id number] Used [id number] 19:14 [employer] BLANKET,WARM AIR CCL * Used *[id number] [id number] 19:14 [employer] PACK, CCL CUSTOM * Used *9355589 19:14 [employer] PACER ISIDRO, LIMB * 2530 *[id number] Used 19:14 [employer] SHEATH, FR5.5 PRELUDE 11CM FR 5 [id number] Used [id number] 19:14 [employer] MEDICAL WIRE, 3MMJ .035 180CM 180CM Used *[id number] 19:14 NAMIC MANIFOLD, 4 PORT * Used *1423774 [id number] 19:14 NAMIC TUBING, HIGH PRESSURE 20" 20" Used *[id number] [id number] 19:14 NAMIC TUBING, HIGH PRESSURE 48" 48" Used *1817344 [id number] 19:14 NAMIC TUBING, HIGH PRESSURE 48" 48" Used *0964319 767875 19:14 [facility] MEDICAL CATHETER, JSN, QUAD FR 5 Used *6549140 370677 19:14 [facility] MEDICAL CATHETER, JSN, QUAD FR 5 Used *[id number] [id number] 19:14 [facility] MEDICAL ELECTRODE KIT, LATASHA X SURFACE * Used *4229730 19:15 [facility] MEDICAL SET, [place] TUBING 02592 *2685359 Used 347310 19:14 [facility] SHEATH, EPS, FR6 FAST CATH FR 6 Used *0857220 19:14 [facility] MEDICAL SHEATH, EPS, FR7 FAST CATH FR 7 [id number] Used [id number] 19:14 [facility] MEDICAL SHEATH, EPS, FR8 FAST CATH FR 8 Used *[id number] CATHETER, ACUNAV FR10 ICE [id number] 20:10 RICO FR 10 Used (RICO) *[id number] [facility] PAD, ELECTROSURGICAL 19:14 * [id number] *[id number] Used SURGICAL GROUNDING (BLUE) History: Allergies Allergy Reaction No Known Allergies History: Risk Factors Family History of Hypertension Dyslipidemia Premature CAD Yes Yes Yes Diabetes Labs Hgb (g/dl) Hct (%) RBC (MIL/MM3) WBC (l/cumm) Platelets (thousands) 11.60-17.00 35.00-51.00 4.00-5.90 4.00-11.00 150.00-450.00 13.5 39.8 4.7 7.7 205 Glucose (mg/dl) BUN (mg/dl) Creatinine (mg/dl) BUN:Creatinine (1:x) 74.00-106.00 7.00-18.00 0.50-1.30 10.00-20.00 104 19 1.1 17.3 Na (meq/l) K (meq/l) 136.00-145.00 3.50-5.10 140 3.9 INR (PTT:PT) 0.90-1.10 1.1 Medication Medication Total Dose (Bolus/Oral) Medication Total Dosage/Unit 1% XYLOCAINE 20 mL HEPARIN 95225 units PROTAMINE 40 mg Medications (Bolus/Oral) Medication Time Given Dosage/Unit Administered By Reason 1% XYLOCAINE 05/05/2018 8:01:10 PM 10 mL Anesthesia, VIDEO GAME DESIGNER 10 mL 1% XYLOCAINE given by Anesthesia, VIDEO GAME DESIGNER in Left Groin via Subcutaneous. Ordered by Rajiv Alicia . 1% XYLOCAINE 05/05/2018 8:05:26 PM 10 mL Anesthesia, VIDEO GAME DESIGNER 10 mL 1% XYLOCAINE given by Anesthesia, VIDEO GAME DESIGNER in Right Groin via Subcutaneous. Ordered by Chandrakant Alicia HEPARIN 05/05/2018 8:13:22 PM 00978 units Anesthesia, VIDEO GAME DESIGNER 99006 units HEPARIN given in lab by Anesthesia, VIDEO GAME DESIGNER via Peripheral IV. Ordered by Rajiv Alicia. HEPARIN 05/05/2018 8:25:33 PM 3000 units Anesthesia, VIDEO GAME DESIGNER 3000 units HEPARIN given in lab by Anesthesia, VIDEO GAME DESIGNER via Peripheral IV. Ordered by Rajiv Alicia. PROTAMINE 05/05/2018 9:09:15 PM 40 mg Anesthesia, VIDEO GAME DESIGNER 40 mg PROTAMINE given in lab by Anesthesia, VIDEO GAME DESIGNER. Ordered by Rajiv Alicia. Medication (Drip) Medication Time Given Dosage/Unit Concentration/Unit Diluent (ml) Solution HEPARIN DRIP 05/05/2018 8:26:44 PM 1000 units/hr 97883 units 250 D5W 1000 units/hr HEPARIN DRIP given in lab by Anesthesia, VIDEO GAME DESIGNER via Peripheral IV. Pump/Drip Flow = 10 ml /hr using [place] [address] units in 250 ml. Ordered by Rajiv Alicia. ISUPREL 05/05/2018 8:55:49 PM 20 mcg/min 1 mg 250 NaCl .9 20 mcg/min ISUPREL given in lab by Anesthesia, VIDEO GAME DESIGNER via Peripheral IV. Pump/Drip Flow = 300 ml/hr usi ng NaCl .9 with a concentration of 1 mg in 250 ml. Ordered by Rajiv Alicia. ISUPREL DRIP STOPPED 05/05/2018 9:05:51 PM 0 units/hr 0 0 units/hr ISUPREL DRIP STOPPED given in lab by Anesthesia, VIDEO GAME DESIGNER. Pump/Drip Flow = 0 ml/hr using [Katarzyna ution Name]. Ordered by Rajiv Alicia. LEVAQUIN 05/05/2018 7:46:38 PM 100 mL/hr 500 100 NaCl .9 100 mL/hr LEVAQUIN given by Anesthesia, VIDEO GAME DESIGNER via Peripheral IV. Pump/Drip Flow = 0 ml/hr using NaCl . 9 with a concentration of 500 in 100 ml. Ordered by Rajiv Alicia. Initial Case Assessment Cardiovascular HR Rhythm NIBP 63 sr 159/69 Edema Present Skin color Skin None Normal Warm Dry Circulatory - Lower Extremities Color Lower Right Color Lower Left Normal Normal Neurological State Oriented to time-place- Alert Moves all extremities person Respiration - General Respiration Rate SpO2 (%) (B/min) 16 99 Final Case Assessment Cardiovascular HR Rhythm NIBP 88 sr 128/60 Edema Present Skin color Skin None Normal Warm Dry Neurological State Oriented to time-place- Lethargic Moves all extremities person Respiration - General Respiration Rate SpO2 (%) (B/min) 12 91 Chronological Log Time Study Chronological Log 19:04:58 Patient arrived via Bed. 19:05:00 Patient Name, D.O.B, / Armband Verified By R.N. 19:05:01 Consent signed by the physician and the patient and verified by the Partner Integration Planner staff. 19:05:02 Pre-op and post- op instructions given; patient acknowledges understanding of instructions. 19:05:03 Verbal Stimulation=2 Physical Stimulation=2 Airway=2 Respiration=2 TOTAL=8. (0=absent, 1=li mited, 2=present) 19:05:06 History and physical on the chart. 19:05:06 Patient has been NPO for More than 6Hrs. 19:05:27 Skin Breakdown- none per pt. 19:05:29 Patient Warmer Placed on the Table. 19:05:30 Disposable Defibrillator Pads Placed On Patient. 19:05:31 Kalee Prominences Protected 19:05:34 A # 20 IV was noted in the Antecubital (left). Grade = 0 0.9% NaCl @ KVO 19:05:35 A # 20 IV was noted in the Antecubital (right). Grade = 0 0.9% NaCl @ KVO 19:10:45 Table restraints applied according to hospital policy Assessment: Initial Case, HR=63 BPM, Rhythm=sr, THPZ=847/69 mmhg, Edema=None, Color=Normal, Ski n = Warm, Dry Lower Right Extremities: Color=Normal 19:15:48 Lower Left Extremities: Color=Normal Neurological: State=Alert, Ox3, VALENZUELA Respiration: Resp=16 B/min, SpO2=99 % 19:16:41 Anesthesia at bedside. Assumes care of patient. 19:41:46 Ingram catheter placed by MYRNA Allan 100 mL/hr LEVAQUIN given by Anesthesia, VIDEO GAME DESIGNER via Peripheral IV. Pump/Drip Flow = 0 ml/hr using NaCl .9 with a 19:46:38 concentration of 500 in 100 ml. Ordered by Rajiv Alicia. 19:46:39 Bilateral groins prepped with 2% chlorhexidine, and draped after a 3 minute waiting time. 19:47:07 Anesthesiologist at bedside for intubation with glidescope Time Out. Correct patient, procedure, procedure equipment, site and side verified with physicia n present. Time 19:57:08 concurred by , individual staff and VIDEO GAME DESIGNER. Time Out #2 - Consents verified, patient in correct position, all results are labled and displa yed, safety precautions 19:57:09 taken, antibiotics administered. Time out concurred by , individual staff and VIDEO GAME DESIGNER in procedu re 19:57:12 Case Start 19:57:14 SHERLY in progress 20:01:01 SHERLY complete 20:01:10 10 mL 1% XYLOCAINE given by Anesthesia, VIDEO GAME DESIGNER in Left Groin via Subcutaneous. Ordered by Rajiv Queen. 20:01:19 Vascular access was obtained in the Fem Vein (left). 20:01:52 Vascular access was obtained in the Fem Vein (left). 20:02:29 Vascular access was obtained in the Fem Vein (left). 20:03:27 A SHEATH, EPS, FR6 FAST CATH FR 6 was advanced into the Fem Vein (left) using the Percutane ous technique. 20:03:40 A SHEATH, EPS, FR7 FAST CATH FR 7 was advanced into the Fem Vein (left) using the Percutane ous technique. 20:04:06 A SHEATH, FR10 BRENDA 11CM FR 10 was advanced into the Fem Vein (left) using the Percutaneo us technique. 20:05:26 10 mL 1% XYLOCAINE given by Anesthesia, VIDEO GAME DESIGNER in Right Groin via Subcutaneous. Ordered by Rajiv Rojas. 20:06:08 Vascular access was obtained in the Fem Vein (right). 20:06:17 A SHEATH, EPS, FR8 FAST CATH FR 8 was advanced into the Fem Art (right) using the Percutane ous technique. 20:06:50 Vascular access was obtained in the Fem Art (right). 20:07:32 A SHEATH, FR5.5 PRELUDE 11CM FR 5 was advanced into the Fem Art (right) using the Percutane ous technique. A CATHETER, JSN, QUAD FR 5 was advanced vis Fem Vein (left) and placed in the CS. Placement was visually 20:08:40 confirmed under fluoroscopy. A CATHETER, JSN, QUAD FR 5 was advanced vis Fem Vein (left) and placed in the HIS. Placement wa s visually 20:09:05 confirmed under fluoroscopy. 20:10:03 CATHETER, ACUNAV FR10 ICE (RICO) FR 10 Was Postioned. A SHEATH, FR8.5 STEERABLE SM 71CM BUNDLE 71CM was exchanged in the Fem Vein (right). This was n ecessary in 20:11:58 order for catheter support. 20:13:22 88659 units HEPARIN given in lab by Anesthesia, VIDEO GAME DESIGNER via Peripheral IV. Ordered by Ashanti Alicia. 20:13:47 [place] in 20:16:36 A eps was advanced to the right atrium and passed through the septal wall to the left atriu m. A CATHETER, FR7 OPTIMA SPIRAL BUNDLE FR7 was advanced vis Fem Vein (right) and placed in the LA . Placement 20:17:23 was visually confirmed under fluoroscopy. 20:18:49 Mapping in progress 20:19:55 Activated Clotting Time Drawn 20:24:06 Mapping catheter removed 20:25:16 ACT (Normal Range 90-180) = 296 20:25:33 3000 units HEPARIN given in lab by Anesthesia, VIDEO GAME DESIGNER via Peripheral IV. Ordered by Michael Alicia. 1000 units/hr HEPARIN DRIP given in lab by Anesthesia, VIDEO GAME DESIGNER via Peripheral IV. Pump/Drip Flow = 10 ml/hr using 20:26:44 [place] [address] units in 250 ml. Ordered by Rajiv Alicia. A CATHETER, Mimosa SystemsTICATH ABLAT 65 BUNDLE was advanced vis Fem Vein (right) and placed in the LA. P lacement was 20:28:19 visually confirmed under fluoroscopy. 20:29:05 RF Ablation in progress 20:38:08 Activated Clotting Time Drawn 20:43:09 Ablation continues 20:45:08 ACT (Normal Range 90-180) = 349 20:55:07 Ablation catheter out 20 mcg/min ISUPREL given in lab by Anesthesia, VIDEO GAME DESIGNER via Peripheral IV. Pump/Drip Flow = 300 ml/ hr using NaCl .9 20:55:49 with a concentration of 1 mg in 250 ml. Ordered by Rajiv Alicia. 0 units/hr ISUPREL DRIP STOPPED given in lab by Anesthesia, KORI. Pump/Drip Flow = 0 ml/hr usin g [Solution Name]. 21:05:51 Ordered by Rajiv Alicia. 21:07:23 Catheter(s) removed without difficulty 21:08:08 Ablation procedure performed: AFIB. A SHEATH, FR9 BRENDA 11CM FR 9 was exchanged in the Fem Vein (right). This was necessary in ord er to minimize 21:08:10 site leakage. 21:08:11 EP Procedure was performed. 21:09:15 40 mg PROTAMINE given in lab by Anesthesia, KORI. Ordered by Rajiv Alicia. 21:10:01 No case complications noted. 21:10:03 Cine recording checked. 21:12:16 VASCADE, FR6 CLOSURE SYSTEM FR 6\\7 placement in the Fem Vein (left) 21:13:14 VASCADE, FR6 CLOSURE SYSTEM FR 6\\7 placement in the Fem Vein (left) 21:13:59 VASCADE, FR6 CLOSURE SYSTEM FR 6\\7 placement in the Fem Vein (left) 21:14:40 VASCADE, FR6 CLOSURE SYSTEM FR 6\\7 placement in the Fem Vein (right) 21:15:51 VASCADE, FR5 CLOSURE SYSTEM FR 5 placement in the Fem Art (right); pressure held for 5 min post deployment 21:16:18 Activated Clotting Time Drawn 21:18:57 ACT (Normal Range 90-180) = 150 21:20:40 Case End (Physician broke scrub) Assessment: Final Case, HR=88 BPM, Rhythm=sr, DYEJ=492/60 mmhg, Edema=None, Color=Normal, Skin = Warm, Dry 21:21:56 Neurological: State=Lethargic, Ox3, VALENZUELA Respiration: Resp=12 B/min, SpO2=91 % 21:23:48 PACU called. Spoke to [facility] 21:23:57 Bedside Report will be given. 21:23:59 Implantable Device card placed in patient's chart. 21:25:25 Sterile dressing applied to sites 21:33:30 Patient moved to stretcher 21:35:16 Defibrillator and ground pads removed. Skin intact. End Study - Contrast Media Used In Study Contrast Total Opened (mL) Total Used (mL) Total Wasted (mL) Omnipaque 0 0 0 End Study - Maximum Contrast Load Max Contrast Load (mL) 334.5 End Study - Radiation Exposure Fluoro Time (minutes) 2.5 End Study - Patient Disposition Complications Transferred To Telemetry Bed
[2018-05-05] MEDS ORDERED: DO NOT ADM ANY ANTICOAGULANT DRUGS PRN (22:30)
[2018-05-05 23:00] VITALS: PULSE 70
[2018-05-05 23:39] VITALS: BP 138/68; PULSE 69; RESP 18; TEMP 97.6; O2SAT 98
[2018-05-06] VITALS (16 sets, daily range): BP systolic 136–140; BP diastolic 68–70; PULSE 66–80; RESP 18–20; TEMP 97.9–98; O2SAT 97–98
[2018-05-06] MEDS ORDERED: LEVOTHYROXINE SODIUM 50 MCG TAB PO SCH (06:00)
[2018-05-06 06:48] LABS: INTERNATIONAL NORMALIZED RATIO 1.1 RATIO; PROTHROMBIN TIME - PATIENT 11.6 SEC (9.8-11.6)
[2018-05-06] MEDS ORDERED: APIXABAN 5 MG TABLET PO SCH (09:00)
[2018-05-06] MEDS ORDERED: AMIODARONE 200 MG TAB PO SCH (09:00)
[2018-05-06] MEDS ORDERED: metFORMIN HCL 500 MG TAB PO SCH (09:00)
[2018-05-06] MEDS ORDERED: CHOLECALCIFEROL (VIT D3) 5000 UNIT CAP PO SCH (09:00)
[2018-05-06] MEDS ORDERED: RED YEAST RICE EXTRACT 1200 MG PO SCH (09:00)
[2018-05-06] MEDS ORDERED: MULTIVITAMIN TAB PO SCH (09:00)
--- NOTE | 2018-05-06 12:56 | HHI.PR ---
Subjective Remarks Feeling ok Objective Vital Signs Date Time Temp Pulse Resp B/P (MAP) Pulse Ox O2 Delivery O2 Flow Rate FiO2 05/06/18 12:33 72 05/06/18 11:46 98.0 71 20 140/68 (92) 98 05/06/18 11:24 68 05/06/18 10:07 71 05/06/18 09:03 98.0 68 20 140/70 (93) 98 05/06/18 09:03 68 05/06/18 08:18 74 05/06/18 07:55 97 21 05/06/18 07:43 70 05/06/18 06:00 70 05/06/18 05:00 69 05/06/18 04:00 66 05/06/18 03:08 97.9 71 18 136/68 (90) 97 05/06/18 03:00 70 05/06/18 02:00 68 05/06/18 01:00 68 05/06/18 00:00 71 05/05/18 23:39 97.6 69 18 138/68 (91) 98 05/05/18 23:00 66 12 135/63 (87) 95 Room Air 05/05/18 23:00 70 05/05/18 22:45 66 12 137/65 (89) 95 Room Air 05/05/18 22:30 66 12 136/63 (87) 97 Nasal Cannula 2 05/05/18 22:15 67 12 131/60 (83) 97 Nasal Cannula 2 05/05/18 22:00 68 12 138/62 (87) 97 Nasal Cannula 2 05/05/18 21:45 76 12 132/56 (81) 96 Nasal Cannula 2 05/05/18 21:39 98.3 79 12 149/67 (94) 95 Nasal Cannula 2 05/05/18 16:38 98.0 64 16 170/80 (110) 97 I/O 05/05/18 05/05/18 05/05/18 05/06/18 05/06/18 05/06/18 07:00 15:00 23:00 07:00 15:00 23:00 Intake Total 240 ml Output Total 550 ml Balance -310 ml Intake Oral 240 ml Output Urine Total 550 ml Result Diagram: 05/05/18 1625 05/05/18 1625 Imaging Alert, fully oriented Lungs: ventilated Heart: S1, S2 regular, no gallop Abdomen: soft, no mass Ext: no edema Current Medications Medications (Trade) Dose Ordered Sig/Daniel Route Start Time Stop Time Status Last Admin Lactated Ringer's 1,000 ml @ 30 mls/hr Q24H PRN IV 05/05/18 17:00 05/08/18 16:59 Sodium Chloride 500 ml @ 30 mls/hr [id number] PRN IV 05/05/18 17:00 05/08/18 16:59 (Lopressor) 25 mg NURSING INFORMATICS ANALYST PRN PO 05/05/18 17:00 05/08/18 16:59 (Betadine 5% Antisepsis Kit) 1 applic NURSING INFORMATICS ANALYST PRN EACH NARE 05/05/18 17:00 05/08/18 16:59 (Chlorhexidine 2% Cloth) 3 pack NURSING INFORMATICS ANALYST PRN TOPICAL 05/05/18 17:00 05/08/18 16:59 Sodium Chloride 500 ml @ 30 mls/hr [id number] IV 05/05/18 17:00 (Ativan) 1 mg NURSING INFORMATICS ANALYST SL 05/05/18 17:00 05/08/18 16:59 (Percocet 5-325 Mg) 1 tab Q4H PRN PO 05/05/18 21:15 (Percocet 5-325 Mg) 2 tab Q4H PRN PO 05/05/18 21:15 (Ativan Inj) 0.5 mg UNSCH PRN IV PUSH 05/05/18 21:15 05/06/18 21:14 (Atropine Inj) 0.5 mg UNSCH PRN IV PUSH 05/05/18 21:15 Sodium Chloride 250 ml @ 500 mls/hr ONCE PRN IV 05/05/18 21:15 05/06/18 21:14 (Zofran Inj) 4 mg Q4H PRN IV PUSH 05/05/18 21:15 (Xylocaine 1% Inj (50 ml)) 10 ml UNSCH PRN INFIL 05/05/18 21:15 05/06/18 21:14 (Cordarone) 200 mg DAILY PO 05/06/18 09:00 05/06/18 08:48 (Eliquis) 5 mg BID PO 05/06/18 09:00 05/06/18 08:48 (Vitamin D3) 5,000 units DAILY PO 05/06/18 09:00 05/06/18 08:48 (Synthroid) 50 mcg DAILY@0600 PO 05/06/18 06:00 05/06/18 05:43 (Glucophage) 1,000 mg DAILY PO 05/06/18 09:00 05/06/18 08:49 (Ambien) 5 mg HS PRN PO 05/05/18 21:15 (Theragran) 1 tab DAILY PO 05/06/18 09:00 05/06/18 08:48 ([facility] Nursing Information) ALL NURSING DEPARTME... UNSCH PRN .XX 05/05/18 22:30 05/06/18 22:29 Assessment and Plan Problem List: (1) Atrial fibrillation with rapid ventricular response ICD Codes: I48.91 - Unspecified atrial fibrillation Plan: Inm sinus rhythm SP ablation Doing well \Can be Follow up as previously scheduled (2) SOB (shortness of breath) ICD Codes: R06.02 - Shortness of breath Plan: Doing better SOB improve Will be Follow up as previously scheduled Rajiv Alicia MD May 06, 2018 12:56
--- NOTE | 2018-05-06 13:03 | PD.CARD ---
Atrial Fibrillation Ablation PROCEDURE DATE: May 05, 2018 PROCEDURES PERFORMED: 1. Electrophysiology study on Isuprel infusion 2. CS cannulation 3. 3-D mapping 4. Transseptal approach 5. Right and left heart catheterization 6. Intracardiac echo 7. Radiofrequency ablation of atrial fibrillation 8. Pulmonary vein isolation 9. Posterior wall ablation 10. Mitral line creation 11. Anterior and posterior ablation INDICATIONS FOR THE PROCEDURE Mr. Robbins is a 77-year-old male with atrial fibrillation, multiple ER visits, very symptomatic, on anticoagulation, referred for electrophysiology study and ablation. The risks, the nature and the benefits of the procedure were clearly stated to him. The risks include pneumothorax, cardiac perforation, stroke, need for open heart surgery and even . The patient understood and agreed to proceed. DESCRIPTION OF THE PROCEDURE IN DETAIL As written informed consent was obtained prior to esophageal echocardiogram, the patient was kept on the table where he was prepped and draped in the usual sterile fashion. Conscious sedation was initiated and maintained throughout the procedure by the anesthesiologist. Once sedation was verified, the right and left inguinal areas were anesthetized with 2% Xylocaine. Using modified Seldinger technique, the left femoral vein was cannulated on three occasions, three guidewires were advanced. Over the wire a 6, 7 and a 10-Jamaican Hemaquet were advanced. Then the left femoral artery was cannulated on one occasion, one guidewire was advanced. Over the wire a 4-Jamaican Hemaquet was advanced. Then the right femoral vein was cannulated on one occasion, one guidewire was advanced. Over the wire a 8-Jamaican Hemaquet was advanced. Then under fluoroscopic guidance through the 6 and 7-Jamaican Hemaquet, two 5-Jamaican Yu curved quadripolar electrophysiology catheters were advanced and placed around the His as well as coronary sinus. Basic interval was measured. The patient was in sinus rhythm. Through the 10-Jamaican Hemaquet, a Cordis Collier AcuNav intracardiac echo catheter was advanced and placed at the right atrium. Multiple view was obtained. There is no pericardial effusion, pulmonary vein was seen, atrial septal was visualized. Then the 8-Jamaican Hemaquet in the right femoral vein was exchanged for Agilis transseptal sheath that was placed all the way to the superior vena cava. Through the sheath a Any needle was advanced, then the sheath, the dilator and the needle were progressed until foci engaged. Once engaged, the needle was advanced. RF was delivered for 2 seconds. I was able to cross into the left atrium. Once the needle crossed, the dilator was advanced. Once the dilator crossed, the sheath was advanced. Once the sheath crossed, the dilator and the needle were removed. At this point I did flushed the system and fluid movement was seen in the left atrium the indicates the sheath is in good position. The patient already received 10,000 units of heparin. The goal is to keep an ACT around 350 during ablation. Then through the sheath a [facility]. Wyatt 20 pulse circumferential catheter was advanced. Using Oh My Green! endocardial solution mapping system, a two-dimensional configuration of the left atrium was obtained. Points were taken at the left superior and inferior veins, right superior and inferior veins, mitral valve, and appendages. Then through the sheath a [employer]. Wyatt TactiCath 65cm 3.5mm irrigated tipped mapping and radiofrequency ablation catheter was advanced. Esophageal probe was placed temperature monitoring during ablation. When it increased to 0.5 degrees Celsius above baseline, I moved to a different area of the atrium. First I did isolate the left superior and inferior vein. I did make a big grand traverse around the veins. Posterior was ablated. A mitral line was created. Then the right superior and inferior veins were isolated. At that point I did advance the circumferential catheter again into the vein. There was no signal into the vein, pacing from the vein showed no conduction to the atrium. Isuprel infusion was initiated at 20 mcg for over 10 minutes. No tachyarrhythmia was induced, post Isuprel no tachyarrhythmia was induced. At that point the procedure was complete. All catheters were removed, atrial septal sheath was exchanged for 9-Jamaican Hemaquet, intracardiac echo showed no pericardial effusion. There is still good flow in the pulmonary vein. The patient is going to be transferred to the recovery room. No incident report. The patient tolerated the procedure. Blood loss was minimal. FINDINGS 1. Electrocardiogram: At baseline the patient was in atrial fibrillation, post procedure the patient was in sinus rhythm. 2. Basic interval: Base cycle length was around 790ms. AH at 96 and HV at 52 milliseconds. 3. Tachyarrhythmia: Atrial fibrillation was mapped and ablated. The ablation was successful. CONCLUSION Successful electrophysiology study, mapping, radiofrequency ablation of atrial fibrillation pulmonary vein isolation, posterior ablation, mitral line creation. COMMENTS AND RECOMMENDATIONS The patient is going to be transferred to the telemetry unit. Will be observed and when stable can be discharged home. Rajiv Alicia MD May 06, 2018 13:03
--- NOTE | 2018-05-06 18:30 | EKG ---
Date Performed: 05/05/2018 Time Performed: 16:35:14 PTAGE: 77 years EKG: Sinus rhythm . Prolonged QT interval when compared to prior EKG, likely no significant change Borderline ECG PREVIOUS TRACING : 04/12/2018 13.17 DOCTOR: Rochelle Bazan Interpretating Date/Time 05/06/2018 18:29:04
--- NOTE | 2018-05-06 18:30 | EKG ---
Date Performed: 05/05/2018 Time Performed: 21:52:35 PTAGE: 77 years EKG: Sinus rhythm WITH FIRST DEGREE AV BLOCK PROLONGED QT INTERVAL ABNORMAL ECG Since the PREVIOUS TRACING , no significant change noted PREVIOUS TRACIN05/05/2018 16.35 DOCTOR: Rochelle Bazan Interpretating Date/Time 05/06/2018 18:29:17
--- NOTE | 2018-05-06 18:31 | EKG ---
Date Performed: 05/06/2018 Time Performed: 03:13:34 PTAGE: 77 years EKG: Sinus rhythm Normal ECG when compared to prior EKG, patient's QT prolongation has resolved PREVIOUS TRACING : 05/05/2018 21.52 DOCTOR: Rochelle Bazan Interpretating Date/Time 05/06/2018 18:29:59
== END 2018-05-06 14:03 | disposition home or self-care (01) ==
LOC: HDOC 15:49 → HDIC 15:51 → HCIS 23:20 → HDOC 05-06 14:03
PROVIDERS: ATTEND Internal Medicine Interventional Cardiology
DX: I48.91 Unspecified atrial fibrillation (principal); I45.81 Long QT syndrome; I44.0 Atrioventricular block, first degree; Z79.899 Other long term (current) drug therapy; Z79.01 Long term (current) use of anticoagulants; E11.9 Type 2 diabetes mellitus without complications; Z79.84 Long term (current) use of oral hypoglycemic drugs; I10 Essential (primary) hypertension
CPT/HCPCS: 80048; 85002; 85025; 85610; 85730; 86850; 86900; 86901; 93005; 93312; 93320; 93325; 93613; 93623; 93656; 93662; C1730; C1731; C1732; C1759; C1760; C1766; C2630; G0269; J1100; J1644; J1956; J2250; J2405; J2710; J2720; J3010; J7040